=== PATIENT | female | born 1950 | race Caucasian/White ===

== ENCOUNTER 2017-01-27 14:27 | Inpatient (IN) | payer MEDICARE, OTHER ==
[~2017-01-27] VITALS: Ht 167.6 cm; Wt 119.5 kg
[~2017-01-27 14:27] MED LIST: ALBUTEROL0.63 MG/3; AMLODIPINE BESYL5 MG PO; AZITHROMYCIN250 MG PO; MEDROL4 MG/DOSE- PO; MOTION SICKNESS25 M2 PO; NASONEX17 GM; PREDNISONE10 MG PO; RANITIDINE HCL150 MG PO; SYMBICORT 16010.2 GM; TIROSINT100 MCG PO; XOPENEX0.63 MG/3
[2017-01-27 15:30] LABS: BASOPHILS # (AUTO) 0.1 (0.0-0.1); EOSINOPHILS # (AUTO) 0.2 (0.0-0.4); EOSINOPHILS % 2.4 % (0.0-6.0); HEMATOCRIT 44.3 % (34.2-44.1); HEMOGLOBIN 14.5 g/dL (12.0-16.0); LYMPHOCYTES # (AUTO) 2.4 (1.0-3.2); LYMPHOCYTES % 26.2 % (18.0-39.1); MEAN CORPUSCULAR HEMOGLOBIN 28.3 pg (28-32); MEAN CORPUSCULAR HGB CONC 32.7 g/dL (31-35); MEAN CORPUSCULAR VOLUME 86.5 fL (81-99); MONOCYTES # (AUTO) 0.5 (0.2-0.8); MONOCYTES % 5.6 % (4.4-11.3); NEUTROPHILS # (AUTO) 5.8 (2.1-6.9); NEUTROPHILS % 64.5 % (38.7-80.0); RED BLOOD COUNT 5.12 x10e6/uL (3.6-5.1)
[2017-01-27 15:39] LABS: INR 0.84; PROTHROMBIN TIME 11.9 seconds (11.9-14.5)
[2017-01-27 15:40] LABS: PARTIAL THROMBOPLASTIN TIME 24.9 seconds (23.8-35.5)
[2017-01-27 15:50] LABS: PLATELET COUNT 17 x10e3/uL (140-360)
[2017-01-27 16:02] LABS: PLATELET ESTIMATE MARKEDLY DECREASED
[2017-01-27 16:05] LABS: PLATELET MORPHOLOGY COMMENT FEW LARGE
[2017-01-27] MEDS ORDERED: SODIUM CHLORIDE FLUSH 10 ML SYR INJ PRN (16:15)
[2017-01-27 16:19] LABS: ALBUMIN 3.6 g/dL (3.5-5.0); ALBUMIN/GLOBULIN RATIO 0.9 (0.8-2.0); ANION GAP 13.4 mmol/L (8-16); CALCIUM 9.2 mg/dL (8.4-10.2); CREATININE, SERUM 1.21 mg/dL (0.57-1.11); POTASSIUM 4.4 mmol/L (3.5-5.1)
[2017-01-27 17:10] VITALS: BP 187/89
[2017-01-27] MEDS ORDERED: TIZANIDINE HCL4 MG PO (18:10)
[2017-01-27] MEDS ORDERED: AUGMENTIN 875-1 EACH PO (18:10)
[2017-01-27] MEDS ORDERED: POTASSIUM 25 M25 MEQ PO (18:10)
[2017-01-27] MEDS ORDERED: FUROSEMIDE40 MG PO (18:10)
[2017-01-27] MEDS ORDERED: LEVOTHYROXINE125 MCG PO (18:14)
[2017-01-27 18:42] VITALS: BP 187/89
[2017-01-27] MEDS ORDERED: ACETAMINOPHEN 325 MG TAB PO PRN (19:45)
[2017-01-27 20:09] VITALS: BP 200/128
[2017-01-27] MEDS: CLONIDINE HCL 0.1 MG TAB PO PRN (20:10)
--- NOTE | 2017-01-27 20:29 | Diagnostic Imaging Report ---
Two view chest x-ray INDICATION: COPD, low platelets COMPARISON: Chest x-ray 11/14/2015. FINDINGS: The cardiomediastinal silhouette is enlarged and stable in morphology with aortic ectasia. There is no evidence of hilar lymphadenopathy. The pulmonary vascular markings are normal. The lungs are diffusely hyperinflated. There are bands of linear atelectasis/scar in the mid and lower lung sneed. No consolidation or soft tissue mass. The costophrenic angles are sharp. Evaluation of the osseous structures demonstrates diffuse demineralization and mild degenerative changes of the spine. No focal osseous lesions. IMPRESSION: COPD. Chronic bilateral atelectasis/scar. Cardiomegaly without vascular congestion. Signed by: Dr. West Hollis MD on 01/27/2017 8:26 PM
[2017-01-28] VITALS: BP 136/81
[2017-01-28] MEDS: ALBUTEROL/IPRATROPIUM 3 ML NEB NEB SCH ×5 (01:00→23:36)
[2017-01-28 03:58] VITALS: BP 130/72
[2017-01-28 06:33] LABS: BASOPHILS # (AUTO) 0.1 (0.0-0.1); BASOPHILS % 1.1 % (0.0-1.0); EOSINOPHILS # (AUTO) 0.2 (0.0-0.4); EOSINOPHILS % 3.5 % (0.0-6.0); HEMATOCRIT 41.6 % (34.2-44.1); HEMOGLOBIN 13.3 g/dL (12.0-16.0); LYMPHOCYTES % 31.1 % (18.0-39.1); MEAN CORPUSCULAR VOLUME 87.6 fL (81-99); MONOCYTES # (AUTO) 0.4 (0.2-0.8); MONOCYTES % 5.3 % (4.4-11.3); NEUTROPHILS # (AUTO) 3.9 (2.1-6.9); NEUTROPHILS % 58.7 % (38.7-80.0); RED BLOOD COUNT 4.75 x10e6/uL (3.6-5.1)
[2017-01-28 06:47] LABS: PLATELET COUNT 15 x10e3/uL (140-360)
[2017-01-28] MEDS: LEVOTHYROXINE SODIUM 125 MCG TAB PO SCH (06:48)
[2017-01-28 06:51] LABS: ANION GAP 11.7 mmol/L (8-16); CREATININE, SERUM 1.04 mg/dL (0.57-1.11); POTASSIUM 4.7 mmol/L (3.5-5.1)
[2017-01-28 07:48] VITALS: BP 169/93
[2017-01-28] MEDS: BUDESONIDE/FORMOTEROL 160/4.5MCG INHALER INH SCH ×2 (11:24→19:10)
[2017-01-28 11:59] VITALS: BP 178/91
[2017-01-28] MEDS: CLONIDINE HCL 0.1 MG TAB PO PRN (12:10)
[2017-01-28] MEDS ORDERED: PREDNISONE 20 MG TAB PO ONE (13:30)
[2017-01-28] MEDS ORDERED: PANTOPRAZOLE SOD 40 MG TABEC PO ONE (13:30)
[2017-01-28] MEDS ORDERED: CLONIDINE HCL 0.1 MG TAB PO PRN (13:45)
[2017-01-28 15:09] LABS: FOLATE 8.2 ng/mL (7.0-15.4)
[2017-01-28 15:18] LABS: HIV 1&2 AB SCREEN NON-REACTIVE (NONREACTIVE)
[2017-01-28 16:01] VITALS: BP 155/94
--- NOTE | 2017-01-28 16:38 | History and Physical ---
CHIEF COMPLAINT: Severe thrombocytopenia, some bruise on the skin. HPI: This is a 66-year-old female with the past medical history of hypothyroidism, right renal adenocarcinoma, status post surgery at [facility], COPD, was in her usual state of health. Patient came to my office for a checkup and physical and blood test, found to have a severe thrombocytopenia, where platelet count was 14,000. Patient was sent to the ER. In ER, the platelet count was 17,000. We admitted for further care and hematology opinion and to rule out ITP. No headache, no dizziness, no hematemesis, no melena, no hematuria, no shortness of breath at rest, no cough, no diarrhea, no constipation. Mild leg edema. PAST MEDICAL HISTORY 1. COPD. 2. Hypothyroidism. 3. Adenocarcinoma of right kidney. PAST SURGICAL HISTORY: Right total nephrectomy from adenocarcinoma at [facility] last year. Had occasional smoking off and on. No alcohol use. Patient lives with her daughter. FAMILY HISTORY: Noncontributory. MEDICATIONS: List attached. REVIEW OF SYSTEMS: Denies having any weakness. HEENT: No lymphadenopathy, blurring of vision. Cardiopulmonary: Has some wheezing, shortness of breath, and cough. Alimentary system: No nausea, no vomiting. Musculoskeletal: No joint pain. Central nervous system: No focal weakness. PHYSICAL EXAMINATION GENERAL: A 66-year-old female, alert and oriented times 3. No gross distress. VITALS: Temperature 98.2. Pulse 82. Respiratory rate 18. Blood pressure 170/80. SKIN: Has some bruise. LUNGS: Air entry fair. Few rhonchi and wheezing bilaterally. HEART: S1, S2. Regular rate and rhythm. No S3, S4. No murmur. ABDOMEN: Soft, nontender. No guarding, no rigidity. EXTREMITIES: +1 pedal edema. Peripheral pulse +1. INSIDE SALES CONSULTANT: Grossly nonfocal. ASSESSMENT 1. Severe thrombocytopenia without active bleeding. 2. COPD. 3. Hypothyroidism. PLAN: Admit patient to medical floor. Hematology consult with Dr. Lala. Clonidine 0.1 mg q.8 p.r.n. for hypertension. Labs, CBC and BMP in the morning. Case discussed with patient and daughter condition and prognosis. Job#: [id number] CQ
[2017-01-28 20:36] VITALS: BP 167/92
[2017-01-29 00:24] VITALS: BP 142/74
[2017-01-29 04:47] VITALS: BP 129/76
[2017-01-29] MEDS: LEVOTHYROXINE SODIUM 125 MCG TAB PO SCH (05:40)
[2017-01-29 07:09] LABS: BASOPHILS # (AUTO) 0.1 (0.0-0.1); BASOPHILS % 0.5 % (0.0-1.0); EOSINOPHILS % 0.1 % (0.0-6.0); HEMATOCRIT 41.8 % (34.2-44.1); HEMOGLOBIN 13.6 g/dL (12.0-16.0); LYMPHOCYTES # (AUTO) 1.6 (1.0-3.2); LYMPHOCYTES % 16.4 % (18.0-39.1); MEAN CORPUSCULAR HEMOGLOBIN 28.5 pg (28-32); MEAN CORPUSCULAR HGB CONC 32.5 g/dL (31-35); MEAN CORPUSCULAR VOLUME 87.4 fL (81-99); MONOCYTES # (AUTO) 0.3 (0.2-0.8); MONOCYTES % 3.4 % (4.4-11.3); NEUTROPHILS # (AUTO) 7.9 (2.1-6.9); NEUTROPHILS % 79.2 % (38.7-80.0); RED BLOOD COUNT 4.78 x10e6/uL (3.6-5.1); RED CELL DISTRIBUTION WIDTH 13.9 % (11.7-14.4)
[2017-01-29 07:11] LABS: PLATELET COUNT 27 x10e3/uL (140-360)
[2017-01-29] MEDS: ALBUTEROL/IPRATROPIUM 3 ML NEB NEB SCH ×2 (07:12→12:50)
[2017-01-29] MEDS ORDERED: PANTOPRAZOLE SOD 40 MG TABEC PO SCH (07:30)
[2017-01-29 07:39] LABS: ANION GAP 13.6 mmol/L (8-16); BLOOD UREA NITROGEN 14 mg/dL (7-26); BUN/CREATININE RATIO 15 (6-25); CALCIUM 9.5 mg/dL (8.4-10.2); CARBON DIOXIDE 25 mmol/L (22-29); CHLORIDE 106 mmol/L (98-107); CREATININE, SERUM 0.92 mg/dL (0.57-1.11); EST GLOMERULAR FILTRATION RATE > 60 ML/MIN (60-); GLUCOSE 108 mg/dL (74-118); POTASSIUM 4.6 mmol/L (3.5-5.1); SODIUM 140 mmol/L (136-145)
[2017-01-29 08:21] VITALS: BP 167/89
[2017-01-29] MEDS ORDERED: AMLODIPINE BESYLATE 5 MG TAB PO SCH ×2 (09:00)
[2017-01-29] MEDS ORDERED: PREDNISONE 20 MG TAB PO SCH (09:00)
[2017-01-29] MEDS: BUDESONIDE/FORMOTEROL 160/4.5MCG INHALER INH SCH (10:30)
[2017-01-29 11:08] LABS: PLATELET ESTIMATE MARKEDLY DECREASED; PLATELET MORPHOLOGY COMMENT NORMAL
[2017-01-29 12:09] VITALS: BP 160/91
[2017-01-29] MEDS ORDERED: PREDNISONE20 MG PO (15:37)
[2017-01-29] MEDS ORDERED: B-121000 MCG PO (15:38)
[2017-01-29] MEDS ORDERED: PANTOPRAZOLE SO40 MG PO (15:38)
[2017-01-29] MEDS ORDERED: AMLODIPINE BESYL5 MG PO (15:41)
[2017-01-29 16:11] VITALS: BP 166/85
--- NOTE | 2017-03-11 08:04 | Discharge Summary ---
CHIEF COMPLAINT: Thrombocytopenia. FINAL DIAGNOSES: 1. Severe thrombocytopenia, no bleeding at this time. 2. B12 deficiency. 3. Hypertension. 4. Chronic obstructive pulmonary disease. 5. History of kidney carcinoma. DISPOSITION: Home. A 66-year-old female with history of hypothyroidism, right renal adenocarcinoma, status post surgery at [facility]. Also has COPD. Patient has been in her baseline state of health until recently she presented to my office for a checkup, and her physical blood studies were showing evidence of severe thrombocytopenia where the platelet count was only 14,000. Following discussing of these results with patient, she was sent to the ER. She was evaluated in the ER. She was showing a BP of 170/80, pulse 82, temperature 98.2. She was revealing evidence of few rhonchi and wheezing bilaterally. Lower extremities were showing 1+ pedal edema, 1+ peripheral pulse. CBC in the ER was showing a platelet count of 17,000. Further care was given, and she was admitted to the facility for evaluation of severe thrombocytopenia without active bleeding, COPD, hypothyroidism. With admission, will be requesting a hematology follow. With admission, she underwent the hematology follow regarding the low platelet count; and following evaluation, impression was made of thrombocytopenia, clinically suspect idiopathic thrombocytopenia. Will begin steroid management. Her care was underway. She continued to have no issues of bleeding, cough, or fever. Vital signs were remaining stable. She did have a little bit of bruising on her peripheral extremities. For additional BP support, she was started on Norvasc 5 mg daily. Followup platelets were 27,000. Continued to have evidence of petechia on the legs, but they were less than before. She was on respiratory treatment. She continued her IV fluids, continued on her prednisone maintenance of 120 mg daily. Recommending continuing the steroids per hematology, recommending rechecking blood studies in 1 week. She was cleared for discharge and she was able to be released home on January 29, 2017 in stable condition. EKG shows normal sinus rhythm with low-voltage QRS. She was released home. She will continue on her current diet. No equipment or supplies necessary. No drains or Mckinney needed. Activity level as directed by me as well as by hematology. She was written a prescription for vitamin B12 1000 mcg daily for 20 days, prednisone 100 mg p.o. daily for 10 days, Protonix 40 mg daily for 30 days, amlodipine 5 mg daily for 30 days. She will also continue on nebulizer treatments as needed daily for shortness of breath, Augmentin 875 per 125 one tablet daily, Symbicort 160 per 4.5 two dosages b.i.d., furosemide 20 mg daily, levothyroxine 125 mcg daily, potassium bicarbonate 8 mEq daily one, tizanidine 2 mg daily. As mentioned, she will follow back up with me in my office within the next 3 to 5 days for followup CBC, to review her platelet count. She will also be reporting back up with hematology as well for continued evaluation regarding issues related to possible ITP. She was instructed if she was to have any untoward bleeding, bruising, contact me in my office immediately. Dictated By: NATO Valiente GLENDY ISABEL MD Job#: [id number]
== END 2017-01-29 16:18 | disposition home or self-care (01) | DRG 813 ==
LOC: ER 14:27 → IMCU 16:49 → OBSVTOIN 01-29 06:14
PROVIDERS: ADMIT Internal Medicine; ATTEND Internal Medicine
PROC: 30233R1 Transfusion of Nonautologous Platelets into Peripheral Vein, Percutaneous Approach (ICD-10-PCS; principal; 2017-01-29)
DX: D69.3 Immune thrombocytopenic purpura (principal); J44.9 Chronic obstructive pulmonary disease, unspecified; Z68.41 Body mass index [BMI] 40.0-44.9, adult; E03.9 Hypothyroidism, unspecified; Z90.5 Acquired absence of kidney; Z85.528 Personal history of other malignant neoplasm of kidney; E66.8 Other obesity; E53.8 Deficiency of other specified B group vitamins
CPT/HCPCS: 36415; 71020; 80048; 80053; 82607; 82746; 85025; 85610; 85730; 86022; 86039; 86431; 86704; 86706; 86803; 87340; 87390; 93005; 94640; 99284; G0378; G0433; G0435

== ENCOUNTER → 2018-12-10 | Outpatient (CLI) | payer MEDICARE, OTHER ==
[~2018-12-10] MED LIST changes: -ALBUTEROL0.63 MG/3; +ALBUTEROL0.63 MG/3 IH; +AUGMENTIN 875-1 EACH PO; +B-121000 MCG PO; +CYCLOBENZAPRINE10 MG PO; +FUROSEMIDE40 MG PO; +HYDRALAZINE HCL25 MG PO; +HYDRALAZINE HCL50 MG PO; +ISOSORBIDE MONO20 MG PO; +LEVOTHYROXINE125 MCG PO; +PANTOPRAZOLE SO40 MG PO; +POTASSIUM 25 M25 MEQ PO; +PREDNISONE20 MG PO; -SYMBICORT 16010.2 GM; +SYMBICORT 16010.2 GM INH; +TIZANIDINE HCL4 MG PO; +TYLENOL WITH C1 EACH PO
[2018-12-10 12:37] LABS: ABG HCO3 28 mmol/L (23-28); ABG PCO2 43 mmHg (41-51); ABG PH 7.42 (7.31-7.41); ABG PO2 70 mmHg (80-105)
== END ==
LOC: LAB 11:59
PROVIDERS: ATTEND Internal Medicine Pulmonary Disease
DX: J44.9 Chronic obstructive pulmonary disease, unspecified (principal)
CPT/HCPCS: 36415; 82805

== ENCOUNTER 2018-12-12 10:58 | Inpatient (IN) | payer MEDICARE, OTHER ==
[2018-12-10 12:33] LABS: BASOPHILS % 0.3 % (0.0-1.0); HEMATOCRIT 47.3 % (34.2-44.1); LYMPHOCYTES % 7.1 % (18.0-39.1); MEAN CORPUSCULAR HEMOGLOBIN 28.4 pg (28-32); MEAN CORPUSCULAR HGB CONC 31.7 g/dL (31-35); MEAN CORPUSCULAR VOLUME 89.4 fL (81-99); MONOCYTES # (AUTO) 0.4 (0.2-0.8); MONOCYTES % 2.5 % (4.4-11.3); NEUTROPHILS # (AUTO) 12.8 (2.1-6.9); NEUTROPHILS % 89.5 % (38.7-80.0); PLATELET COUNT 116 x10e3/uL (140-360); RED BLOOD COUNT 5.29 x10e6/uL (3.6-5.1); RED CELL DISTRIBUTION WIDTH 15.4 % (11.7-14.4)
[2018-12-10 12:38] LABS: INR 0.83; PROTHROMBIN TIME 11.9 seconds (11.9-14.5)
[2018-12-10 12:39] LABS: PARTIAL THROMBOPLASTIN TIME 18.3 seconds (23.8-35.5)
[2018-12-10 12:46] LABS: ANION GAP 12.5 mmol/L (8-16); CALCIUM 9.7 mg/dL (8.4-10.2); CREATININE, SERUM 0.93 mg/dL (0.57-1.11); POTASSIUM 4.5 mmol/L (3.5-5.1)
--- NOTE | 2018-12-10 13:17 | Diagnostic Imaging Report ---
EXAMINATION: CHEST 2 VIEWS INDICATION: Pre-operative COMPARISON: None FINDINGS: LINES/TUBES:None LUNGS:The lungs are hyperinflated. Mild biapical pleural parenchymal thickening/scarring. Linear opacities at both right and left mid and lower lung zones, likely subsegmental atelectasis and/or scarring. PLEURA:No pleural effusion or pneumothorax. MEDIASTINUM:The heart is mildly enlarged. BONES/SOFT TISSUES:No acute osseous injury. ABDOMEN:No free air under the diaphragm. IMPRESSION: Hyperinflated lungs. Linear opacities at right and left mid and lower lung zones likely represent subsegmental atelectasis and/or scarring. Mild cardiomegaly. Signed by: Sampson Cole MD on 12/10/2018 1:14 PM
[~2018-12-12] VITALS: Ht 162.6 cm; Wt 123.4 kg
[~2018-12-12 10:58] MED LIST changes: -TYLENOL WITH C1 EACH PO
--- OUTSIDE RECORDS SUMMARY | 2018-12-12 11:58 | XMS REPORT ---
Author [facility] Address Unknown Phone Unavailable Care Team Providers Care Optical Goods Worker Name Role Phone TALON TSANG Unavailable Unavailable GRACY MARTINEZ Unavailable Unavailable Payers Payer Name Policy Type Policy Number Effective Date Expiration Date Problems This patient has no known problems. Allergies, Adverse Reactions, Alerts Allergy Name Allergy Type Status Severity Reaction(s) Onset Date Inactive Date Treating Clinician Comments oxycodone DA Active U 2017-09-18 00:00:00 aspirin DA Active U 2017-09-18 00:00:00 Medications This patient has no known medications. Results Test Description Test Time Test Comments Text Results Atomic Results Result Comments CHEST 2 VIEWS 2018-12-10 13:12:00 [facility] [address] [place] [address] Patient Name: DONNA SOMMERS MR #: [id number] : 1950 Age/Sex: 68/F Req #: [id number] Adm Physician: Ordered by: TALON TSANG MD Report #: [id number] Location: OR Room/Bed: Procedure: [id number] DX/CHEST 2 VIEWS Exam Date: 12/10/18 Exam Time: 1240 REPORT STATUS: Signed EXAMINATION: CHEST 2 VIEWS INDICATION: Pre-operative COMPARISON: None FINDINGS: LINES/TUBES:None LUNGS:The lungs are hyperinflated. Mild biapical pleural parenchymal thickening/scarring. Linear opacities at both right and left mid and lower lung zones, likely subsegmental atelectasis and/or scarring. PLEURA:No pleural effusion or pneumothorax. MEDIASTINUM:The heart is mildly enlarged. BONES/SOFT TISSUES:No acute osseous injury. ABDOMEN:No free air under the diaphragm. IMPRESSION: Hyperinflated lungs. Linear opacities at right and left mid and lower lung zones likely represent subsegmental atelectasis and/or scarring. Mild cardiomegaly. Signed by: Juan Flores MD on 12/10/2018 1:14 PM Dictated By: JUAN FLORES MD 13 Transcribed By: OSMIN on 12/10/181313 COPY TO: TALON TSANG MD BREAST,BIOPSY 2017-10-24 12:51:00 RUN DATE: 10/24/17 [facility] PAGE 1 RUN TIME: 1251 Specimen Inquiry RUN USER: INTERFACE PATIENT: DONNA SOMMERS LOC: PAZ U #: [id number] AGE/SX: 67/F ROOM: RE10/23/17REG DR: Gracy Martinez MD : [birth year] BED: DIS: STATUS: [facility] TLOC: SPEC #: [id number] RECD: 10/23/17 STATUS: LULI REGlen #: [id number] SHARRI: 10/23/17 DR: Laisha Osborne MD ENTERED: 10/23/17 SP TYPE: BX BREAST OTHR DR: ORDERED: GROSS MARKERS: INTRADEPARTMENTAL CONSULT PROCEDURES: GROSS (10/23/17) TISSUES: BREAST CORE BIOPSY - RIGHT @ 6:00 MASS CLINICAL HISTORY COLLECTION DATE: 10/23/17 LEFT BREAST 6 O'CLOCK MASS/ ARCHITECTURAL DISTORTION POST-OP DIAGNOSIS: BENIGN VS MALIGNANT DISTORTION; STROMAL FIBROSIS VS MALIGNANCY COMMENT INTRADEPARTMENT CONSULTATION: DMW FINAL DIAGNOSIS Left breast, 6 o'clock, core needle biopsy: BENIGN BREAST PARENCHYMA WITH ADENOSIS AND FOCAL MICROCALCIFICATION NEGATIVE FOR MALIGNANCY SHRUTHI D [id number] MACROSCOPIC The specimen is received in formalin, labeled with the patient's name and identified as "L breast US bx". It consists of multiple yellow-white needle core biopsy tissue measuring 1.7 X 1.5 X 0.2 cm in aggregate. The tissue is strained through a biopsy bag and entirely submitted in a single cassette for microscopic evaluation. GROSS PERFORMED AT [facility] [address] [facility], [place] [address] CONTINUED ON NEXT PAGE RUN DATE: 10/24/17 [facility] PAGE 2 RUN TIME: 1251 Specimen Inquiry RUN USER: INTERFACE SPEC #: [id number] PATIENT: DONNA SOMMERS #[id number] (Continued) MACROSCOPIC (Continued) (P)[phone] MICROSCOPIC MICROSCOPIC PERFORMED AT [facility] All of the stains, including any controls performed, stain appropriately. [facility] [address] [place] [address], [place] [address] (P)[phone] Signed SIGNATURE ON FILE Laurence Singh 10/24/17 1251 END OF REPORT CHEST [address] [facility] [address] [address] Patient Name: DONNA SOMMERS MR #: [id number] : 1950 Age/Sex: 66/F Req #: [id number] Adm Physician: GRACY MARTINEZ MD Ordered by: GRACY MARTINEZ MD Report #: [id number] Location: [facility] Room/Bed: [place] [address] Procedure: [id number] DX/CHEST 2 VIEWS Exam Date: Exam Time: REPORT STATUS: Signed Two view chest x-ray INDICATION: COPD, low platelets COMPARISON: Chest x-ray 11/14/2015. FINDINGS: The cardiomediastinal silhouette is enlarged and stable in morphology with aortic ectasia. There is no evidence of hilar lymphadenopathy. The pulmonary vascular markings are normal. The lungs are diffusely hyperinflated. There are bands of linear atelectasis/scar in the mid and lower lung sneed. No consolidation or soft tissue mass. The costophrenic angles are sharp. Evaluation of the osseous structures demonstrates diffuse demineralization and mild degenerative changes of the spine. No focal osseous lesions. IMPRESSION: COPD. Chronic bilateral atelectasis/scar. Cardiomegaly without vascular congestion. Signed by: Dr. Mariaelena Hollis MD on 01/27/2017 8:26 PM Dictated By: MARIAELENA HLOLIS MD 25 Transcribed By: OSMIN on 01/27/172025 COPY TO: GRACY MARTINEZ MD
[2018-12-12] MEDS ORDERED: CEFAZOLIN SOD 1 GM/NS 50ML 100 ML IV ONE (12:15)
[2018-12-12] MEDS ORDERED: BUPIVACAINE HCL 0.5% INJ 30 ML VIAL INJ ONE (12:42)
[2018-12-12] MEDS ORDERED: BACITRACIN 50,000 UNIT VIAL ONE (12:42)
[2018-12-12] MEDS ORDERED: SUGAMMADEX SODIUM 200 MG/2 ML VIAL IV ONE (13:33)
[2018-12-12] MEDS ORDERED: ONDANSETRON HCL INJ 2MG/ML 2ML 2 MG/ML VIAL ONE (13:56)
[2018-12-12] MEDS ORDERED: HYDROCORTISONE SOD SUCCINATE 100 MG VIAL ONE (13:56)
[2018-12-12] MEDS ORDERED: DESFLURANE 240 ML BTL INH ONE (13:56)
[2018-12-12] MEDS ORDERED: ROCURONIUM BROMIDE 10 MG/ML 5ML VIAL ONE (13:56)
[2018-12-12] MEDS ORDERED: LIDOCAINE HCL 2% LOCAL INJ 5 ML SDV VIAL INJ ONE (13:56)
[2018-12-12] MEDS ORDERED: ACETAMINOPHEN 1000 MG/100 ML IV ONE (13:56)
[2018-12-12] MEDS ORDERED: PROPOFOL IV EMULSION 10 MG/ML 20 ML VIAL ONE (13:56)
[2018-12-12] MEDS: SODIUM CHLORIDE 0.9% 1000ML 1,000 ML IV SCH ×2 (13:58→20:16)
[2018-12-12] MEDS ORDERED: DIPHENHYDRAMINE HCL 25 MG CAP PO PRN (14:00)
[2018-12-12] MEDS ORDERED: BUDESONIDE/FORMOTEROL 160/4.5MCG INHALER INH PRN (14:00)
[2018-12-12] MEDS ORDERED: NALOXONE HCL INJ 0.4 MG/ML AMP IV PRN (14:00)
[2018-12-12] MEDS ORDERED: CYCLOBENZAPRINE HCL 10 MG TAB PO PRN (14:00)
[2018-12-12] MEDS ORDERED: ISOSORBIDE MONONITRATE 20 MG TAB PO SCH (14:00)
[2018-12-12] MEDS ORDERED: CEFAZOLIN SOD 1 GM VIAL IV SCH (14:00)
[2018-12-12] MEDS ORDERED: MORPHINE SULFATE 1 MG/ML 30ML PCA IV PRN (14:00)
[2018-12-12] MEDS ORDERED: ONDANSETRON HCL INJ 2MG/ML 2ML 2 MG/ML VIAL IV PRN (14:00)
[2018-12-12] MEDS ORDERED: FENTANYL CITRATE/PF 100MCG/2 ML INJ ONE ×2 (14:22→14:41)
[2018-12-12] MEDS ORDERED: MIDAZOLAM HCL 2 MG/2 ML VIAL ONE (14:41)
--- NOTE | 2018-12-12 15:13 | NUR ---
Patient admitted to unit from PACU. Patient is AAOx3. Patient is post op hernia repair with mesh. Dressing to right side of abdomen clean and dry. BABAK drain in place with minimal amount of bloody drainage. Lung sneed auscultated and some wheezing noted. Patient is a smoker. Wears O2 at home as well. Bowel sounds present but hypoactive. No c/o pain at this time. NO edema noted to BLE. Right hand IV in place with IV fluids infusing. Family at bedside
[2018-12-12 15:44] VITALS: BP 138/77
[2018-12-12 16:03] VITALS: BP 138/77
[2018-12-12] MEDS: CEFAZOLIN SOD 2 GM/D5W 50ML 50 ML IV SCH (17:01)
[2018-12-12] MEDS: ACETAMINOPHEN 1000 MG/100 ML IV PRN (19:17)
[2018-12-12 19:54] VITALS: BP 136/69
[2018-12-12] MEDS: ALBUTEROL/IPRATROPIUM 3 ML NEB NEB SCH (20:15)
[2018-12-12] MEDS: HYDRALAZINE HCL 25 MG TAB PO SCH (20:16)
[2018-12-12] MEDS: PREDNISONE 10 MG TAB PO SCH (20:16)
--- NOTE | 2018-12-12 21:03 | Operative Report ---
DATE OF PROCEDURE: 12/12/2018 SURGEON: Justus Velasco MD PREOPERATIVE DIAGNOSIS: Incisional hernia. POSTOPERATIVE DIAGNOSIS: Incisional hernia. PROCEDURE: Repair of incisional hernia with mesh. TECHNICAL SALES SUPPORT MANAGER: None. ANESTHESIA: General endotracheal. INDICATIONS AND FINDINGS: The patient is a 68-year-old female who presented with complaints of pain with a bulge in the right upper abdomen at the site of previous surgery. The patient has incisional hernia with the fascial defect that was approximately 6 x 8 cm. There was herniated omentum, small bowel and colon within the hernia. DESCRIPTION OF PROCEDURE: After adequate general endotracheal anesthesia, the patient in supine position, the abdomen was prepped and draped in a sterile fashion with ChloraPrep solution. Incision was made in the right subcostal area, going through the previous wound, carried down through subcutaneous tissue. The hernia sac was identified. Hernia was dissected free from surrounding tissues. During dissection, the sac was opened. There was herniated omentum, small bowel and colon within the hernia sac. There was some adhesions to the hernia sac, which were lysed and they were herniated. The viscera was returned to the peritoneal cavity. The hernia sac was excised. The fascial defect was completely delineated with all adhesions lysed. The defect was about 6 x 8 cm. A separate mesh of appropriate size was soaked in antibiotic solution, fashioned appropriately, and sutured to the undersurface of the abdominal wall, intraperitoneal position with a running horizontal mattress suture of #0 Prolene. Sutures taken about 3 cm from the edge of the defect. Once the mesh was in place, thinned out edge of the fascia were closed over the mesh with a running suture of #0 prolene. Hemostasis was seen to be adequate and was infiltrated with 0.5% Marcaine. A 19-Finnish Tonny drain was placed into the wound through a separate stab wound incision. The subcutaneous tissue closed with running suture of 3-0 Vicryl. Skin was closed with virginia. Sterile dressing was applied. The patient tolerated the procedure well. ESTIMATED BLOOD LOSS: 25 mL. COMPLICATIONS: There were no complications. COUNTS: All counts were correct. DISPOSITION: The patient was taken to the recovery room in satisfactory condition. MD GISELLA Garrett/ZAFAR /[id number] cc: Gracy Martinez MD
[2018-12-12 21:25] VITALS: BP 136/69
[2018-12-13] VITALS (9 sets, daily range): BP systolic 102–159; BP diastolic 54–76
[2018-12-13] MEDS: ALBUTEROL/IPRATROPIUM 3 ML NEB NEB SCH ×4 (01:15→20:30)
[2018-12-13] MEDS: CEFAZOLIN SOD 2 GM/D5W 50ML 50 ML IV SCH ×2 (01:43→08:19)
--- NOTE | 2018-12-13 01:59 | Consultation ---
DATE OF CONSULTATION: 12/12/2018 CHIEF COMPLAINT: Abdominal hernia. HISTORY OF PRESENT ILLNESS: This is a 68-year-old female with past medical history of hypertension, renal insufficiency, carcinoma of kidney, COPD, ITP. She was in her usual state of health until the patient complaining this abdominal pain and ventral hernia for a long time. Dr. Velasco admitted this patient for surgery today. The patient underwent ventral hernia repair with the mesh. No headache. No dizziness. No nausea. No vomiting. No constipation. Postoperatively, the patient is doing better and alert. No leg pain. No shortness of breath. No cough. No fever. ALLERGIES: ALLERGY TO PAPER TAPE, ASPIRIN, OXYCODONE. PAST MEDICAL HISTORY: 1. ITP, platelet count stable. 2. COPD. 3. Hypertension. 4. Renal insufficiency. 5. Carcinoma of the right kidney, status post surgery. PAST SURGICAL HISTORY: 1. Hysterectomy. 2. Cholecystectomy. 3. Right nephrectomy. HABITS: Denies smoking. Denies alcohol use. Denies illicit drug use. SOCIAL HISTORY: The patient is a , lives with her daughter. FAMILY HISTORY: Noncontributory. MEDICATIONS: List attached. REVIEW OF SYSTEMS: GENERAL: Denies fatigue and weakness. HEENT: No diplopia. No blurry vision. CARDIOPULMONARY: No chest pain. No wheezing. No shortness of breath. ALIMENTARY SYSTEM: No nausea. No vomiting. GENITOURINARY SYSTEM: No dysuria. No hematuria. MUSCULOSKELETAL: No joint pains. CENTRAL NERVOUS SYSTEM: No focal weakness. PHYSICAL EXAMINATION: GENERAL: This is a 68-year-old female, who is alert and oriented x3, in no gross distress. VITAL SIGNS: Temperature 97.3, pulse 93, respiratory rate 17, blood pressure 138/77, and O2 saturation 95. LUNGS: Air entry fair. No added sound. HEART: S1 and S2. Regular rate and rhythm. No S3, S4, or murmur. ABDOMEN: Soft and nontender. No guarding. No rigidity. EXTREMITIES: No pedal edema. Peripheral pluses +1. CAPACITY PLANNER: Grossly nonfocal. LABORATORY AND DIAGNOSTIC DATA: White count 14.25, hemoglobin 15, hematocrit 47.3, platelet 116. BUN and creatinine normal. EKG, normal sinus rhythm. Low voltage at 78 per minute. ASSESSMENT: 1. Ventral hernia, status post hernia repair with mesh by Dr. Velasco. 2. Right nephrectomy secondary to carcinoma. 3. Mild renal insufficiency. BUN and creatinine are stable. 4. Chronic obstructive pulmonary disease. 5. Hypertension. 6. History of ITP. Platelet stable. PLAN: IV cefazolin 1 g q.8h. IV fluids normal saline 100 mL/h. DuoNeb. Blood pressure pill. Postop care. SCD. Incentive spirometry q.2 hours. CBC and CMP in morning. Case discussed with the patient and daughter and nursing staff. Condition and prognosis explained. MD EVERT Gomez/ZAFAR /[id number]
[2018-12-13] MEDS: ACETAMINOPHEN 1000 MG/100 ML IV PRN ×2 (03:30→10:30)
[2018-12-13 05:48] LABS: BASOPHILS # (AUTO) 0.1 (0.0-0.1); BASOPHILS % 0.4 % (0.0-1.0); EOSINOPHILS % 0.1 % (0.0-6.0); HEMATOCRIT 44.7 % (34.2-44.1); HEMOGLOBIN 13.6 g/dL (12.0-16.0); LYMPHOCYTES # (AUTO) 2.3 (1.0-3.2); LYMPHOCYTES % 16.1 % (18.0-39.1); MEAN CORPUSCULAR HEMOGLOBIN 28.2 pg (28-32); MEAN CORPUSCULAR HGB CONC 30.4 g/dL (31-35); MEAN CORPUSCULAR VOLUME 92.5 fL (81-99); MONOCYTES # (AUTO) 0.9 (0.2-0.8); MONOCYTES % 6.4 % (4.4-11.3); NEUTROPHILS # (AUTO) 10.8 (2.1-6.9); NEUTROPHILS % 76.6 % (38.7-80.0); PLATELET COUNT 112 x10e3/uL (140-360); RED BLOOD COUNT 4.83 x10e6/uL (3.6-5.1); RED CELL DISTRIBUTION WIDTH 15.9 % (11.7-14.4)
[2018-12-13] MEDS: LEVOTHYROXINE SODIUM 25 MCG TABLET PO SCH (06:02)
[2018-12-13] MEDS: LEVOTHYROXINE SODIUM 112 MCG TAB PO SCH (06:02)
[2018-12-13 06:23] LABS: ALBUMIN 2.9 g/dL (3.5-5.0); ALBUMIN/GLOBULIN RATIO 1.2 (0.8-2.0); ANION GAP 10.4 mmol/L (8-16); CALCIUM 9.2 mg/dL (8.4-10.2); CREATININE, SERUM 0.99 mg/dL (0.57-1.11); POTASSIUM 4.4 mmol/L (3.5-5.1)
[2018-12-13 06:42] LABS: PLATELET ESTIMATE MODERATELY DECREASED
[2018-12-13 06:43] LABS: PLATELET MORPHOLOGY COMMENT FEW LARGE; RBC MORPHOLOGY COMMENT NORMAL
--- NOTE | 2018-12-13 07:07 | NUR ---
Rcvd patient in report this am. Patient is asleep in bed at this time. NO s/s of distress noted
[2018-12-13] MEDS: ISOSORBIDE MONONITRATE 30 MG TAB CR PO SCH (08:19)
[2018-12-13] MEDS: SODIUM CHLORIDE 0.9% 1000ML 1,000 ML IV SCH ×2 (08:19→20:47)
[2018-12-13] MEDS: HYDRALAZINE HCL 25 MG TAB PO SCH ×2 (08:19→20:47)
[2018-12-13] MEDS: PREDNISONE 20 MG TAB PO SCH (08:19)
--- NOTE | 2018-12-13 08:57 | NUR ---
IV leaking at this time. Will remove and attempt to replace
[2018-12-13] MEDS ORDERED: NON-FORMULARY MEDICATION (Hydralazine Hcl 50 MG) PO SCH (09:00)
[2018-12-13] MEDS ORDERED: LEVOTHYROXINE SODIUM 125 MCG TAB PO SCH (09:00)
[2018-12-13] MEDS ORDERED: ISOSORBIDE MONONITRATE 20 MG TAB PO SCH (09:00)
--- NOTE | 2018-12-13 09:13 | NUR ---
Left AC IV started.
[2018-12-13] MEDS ORDERED: TRAMADOL/APAP 37.5MG-325MG TAB PO PRN (13:30)
[2018-12-13] MEDS ORDERED: ONDANSETRON HCL 4 MG ORAL DISINTEGRATING TAB PO PRN (14:15)
[2018-12-13] MEDS: FAMOTIDINE 20 MG TAB PO SCH (16:53)
--- NOTE | 2018-12-13 17:03 | NUR ---
Nutrition Screen Note RD Recommendation for Physician: -Continue diet as ordered Plan of Care: RD following, monitoring for tolerance and adequacy Nutrition reason for involvement: Nutrition Risk Trigger MST 2 Primary Diagnose(s): ventral hernia PMH: HTN, renal insufficiency, carcinoma of kidney, COPD, ITP, cholecystectomy, right nephrectomy Ht: 64 in Wt: 272 lb BMI: 46.68 kg/m2 IBW: [address] Assessment: (12/13) Chart reviewed. Labs and meds reviewed. Pt is a 68 year old female admitted for incisional hernia. Pt stated her appetite has been good and is eating all of her meals. Consumption of 50-100% of meals documented in chart since 12/12. Pt stated she usually weighs 240 lbs but has gained weight due to medications. Pt reports some nausea. No chewing/swallowing issues reported. Will continue to monitor. Current Diet: GI soft Malnutrition Evaluation (12/13) The patient does not meet criteria for a specified degree of malnutrition at this time. Will re-evaluate at follow-up as appropriate. Energy intake: Adequate PO intake reported Weight loss: No weight loss reported Fat loss: no loss identified Muscle loss: no loss identified Supporting Evidence: Fluid accumulation: no accumulation identified Functional Status: no changes Diet Education Needs Assessment: Diet education not indicated. Nutrition Care Level: low Signed: Estefanía Osorio, MS, RD, LD
[2018-12-13] MEDS: PREDNISONE 10 MG TAB PO SCH (20:47)
[2018-12-13] MEDS ORDERED: ACETAMINOPHEN 325 MG TAB PO PRN (23:45)
--- NOTE | 2018-12-13 23:53 | NUR ---
Spoke with Dr. Velasco and received orders.
[2018-12-14] MEDS: ALBUTEROL/IPRATROPIUM 3 ML NEB NEB SCH ×3 (01:00→13:30)
[2018-12-14 04:00] VITALS: BP 135/64
[2018-12-14 06:02] LABS: BASOPHILS # (AUTO) 0.1 (0.0-0.1); BASOPHILS % 0.4 % (0.0-1.0); EOSINOPHILS % 0.1 % (0.0-6.0); HEMATOCRIT 43.5 % (34.2-44.1); HEMOGLOBIN 13.2 g/dL (12.0-16.0); LYMPHOCYTES # (AUTO) 1.6 (1.0-3.2); LYMPHOCYTES % 12.2 % (18.0-39.1); MEAN CORPUSCULAR HEMOGLOBIN 28.1 pg (28-32); MEAN CORPUSCULAR HGB CONC 30.3 g/dL (31-35); MEAN CORPUSCULAR VOLUME 92.8 fL (81-99); MONOCYTES # (AUTO) 0.9 (0.2-0.8); MONOCYTES % 6.3 % (4.4-11.3); NEUTROPHILS # (AUTO) 10.9 (2.1-6.9); NEUTROPHILS % 80.5 % (38.7-80.0); PLATELET COUNT 105 x10e3/uL (140-360); RED BLOOD COUNT 4.69 x10e6/uL (3.6-5.1); RED CELL DISTRIBUTION WIDTH 15.8 % (11.7-14.4)
[2018-12-14 06:40] LABS: ANION GAP 10.3 mmol/L (8-16); CALCIUM 9.3 mg/dL (8.4-10.2); CREATININE, SERUM 1.04 mg/dL (0.57-1.11); POTASSIUM 4.3 mmol/L (3.5-5.1)
[2018-12-14 07:00] LABS: PLATELET ESTIMATE MODERATELY DECREASED
[2018-12-14 07:01] LABS: PLATELET MORPHOLOGY COMMENT FEW LARGE; RBC MORPHOLOGY COMMENT NORMAL
[2018-12-14] MEDS: LEVOTHYROXINE SODIUM 25 MCG TABLET PO SCH (07:01)
[2018-12-14] MEDS: LEVOTHYROXINE SODIUM 112 MCG TAB PO SCH (07:01)
[2018-12-14] MEDS: FAMOTIDINE 20 MG TAB PO SCH (07:30)
--- NOTE | 2018-12-14 07:45 | NUR ---
Received patient and a/ox3, pleasant female, sitting on the edge of the bed, minimal RLL abd pain, no resp distress, call light within reach and rounds completed, will monitor.
[2018-12-14 09:11] VITALS: BP 159/73
[2018-12-14] MEDS: HYDRALAZINE HCL 25 MG TAB PO SCH (09:25)
[2018-12-14] MEDS: PREDNISONE 20 MG TAB PO SCH (09:26)
[2018-12-14] MEDS: ISOSORBIDE MONONITRATE 30 MG TAB CR PO SCH (09:26)
--- NOTE | 2018-12-14 09:27 | NUR ---
Patient tolerated GI soft diet and no N/V noted, reported
[2018-12-14 09:45] VITALS: BP 159/73
[2018-12-14 13:26] VITALS: BP 134/65
--- NOTE | 2018-12-14 14:18 | NUR ---
Rounds by Dr. Velasco and cleared patient for discharge. Patient will go home with BABAK drain, will educate patient on managing BABAK drain and will f/u with Dr. Velasco at the office.
[2018-12-14] MEDS ORDERED: TYLENOL WITH C1 EACH PO (14:37)
--- NOTE | 2018-12-14 14:57 | NUR ---
Patient alert and responsive, removed dressing to abdomen, well tolerated, educated patient on care of BABAK drain, returned demonstration. Medicated for pain. Provided patient with discharge instructions, prescription, contacts for f/u appt provided. Incision to abd intact, virginia in place and well approximated, patient discharged.
[2018-12-14] MEDS ORDERED: HYDRALAZINE HCL 25 MG TAB PO SCH (17:00)
--- NOTE | 2018-12-15 07:16 | Discharge Summary ---
ADMISSION DIAGNOSIS: Incisional hernia. DISCHARGE DIAGNOSIS: Incisional hernia. PRINCIPAL PROCEDURE: Repair of incisional hernia with mesh HISTORY OF PRESENT ILLNESS: The patient is a 68-year-old female, who presented with complaints of pain and bulge in right upper abdomen at the site of previous surgery. HOSPITAL COURSE: The patient admitted to the hospital, underwent surgery on the same day as admission. She had repair of recurrent incisional hernia with mesh. Postoperatively, the patient remained stable. She was seen in consultation by Dr. Shashank Martinez. Started on diet. She tolerated without problem. Diet was advanced. She was out of bed ambulating. Wound remained clean. She was discharged home on the second postop day. At time of discharge, she was afebrile, tolerating diet. Wound was clean. Drain had serosanguineous fluid draining. DISCHARGE MEDICATIONS: Tylenol with codeine and continue on same home medications that she took prior to admission. FOLLOWUP: She will follow up with Dr. Velasco in approximately 3 to 4 days after discharge. She was sent home in satisfactory condition on a regular diet. MD GISELLA Garrett/ZAFAR /[id number]
== END 2018-12-14 15:40 | disposition home or self-care (01) | DRG 354 ==
LOC: OR 10:58 → PACU V 14:03 → MED/SURG 14:57
PROVIDERS: ADMIT Surgery; ATTEND Surgery
PROC: 0WUF0JZ Supplement Abdominal Wall with Synthetic Substitute, Open Approach (ICD-10-PCS; principal; 2018-12-12 13:02)
DX: K43.2 Incisional hernia without obstruction or gangrene (principal); D69.3 Immune thrombocytopenic purpura; Z68.42 Body mass index [BMI] 45.0-49.9, adult; J44.9 Chronic obstructive pulmonary disease, unspecified; Z85.528 Personal history of other malignant neoplasm of kidney; Z90.5 Acquired absence of kidney; I10 Essential (primary) hypertension; N28.9 Disorder of kidney and ureter, unspecified; Z90.710 Acquired absence of both cervix and uterus; Z90.49 Acquired absence of other specified parts of digestive tract; E66.01 Morbid (severe) obesity due to excess calories
CPT/HCPCS: 36415; 71046; 80048; 80053; 82805; 85025; 85610; 85730; 88302; 93005; 94640; C1781; J0690; J1720; J2001; J2250; J2270; J2405; J3010; J7030; J7512

== ENCOUNTER 2019-11-21 23:08 | Emergency (ER) | payer MEDICARE, OTHER ==
[~2019-11-21] VITALS: Ht 162.6 cm; Wt 123.4 kg
[~2019-11-21 23:08] MED LIST changes: +TYLENOL WITH C1 EACH PO
[2019-11-21] MEDS ORDERED: FAMOTIDINE 20 MG/2 ML VIAL IV STA (23:18)
--- NOTE | 2019-11-21 23:19 | Emergency Department Note ---
History of Present Illnes History of Present Illness History of Present Illness This is a 69 year old female with acute onset of epigastric pain with n/c 4 hours prior to arrival. Historian: Patient Onset (how long ago): hour(s) (4) Radiation: Reports abdomen Severity: moderate Duration (how long): hour(s) (4) Timing of current episode: constant Progression: unchanged Chronicity: new Associated symptoms: Reports fever/chills, Reports nausea/vomiting Past Medical/Family History Physician Review I have reviewed the patient's past medical and family history. Any updates have been documented here. Past Medical History Recent Fever: No Clinical Suspicion of Infectio: No New/Unexplained Change in Ment: No Past Medical History: Hypertension, COPD Other Medical History: breast CA, kidney cancer, sleep apNEA, Past Surgical History: Hysterectomy Other Surgery: NEPHRECTOMY Social History Smoking Cessation: Never Smoker Alcohol Use: None Any Illegal Drug Use: No Other Last Tetanus: UTD Review of Systems Review of Systems Constitutional: Reports chills EENTM: Reports no symptoms Cardiovascular: Reports no symptoms Respiratory: Reports no symptoms Gastrointestinal: Reports abdominal pain, Reports nausea Genitourinary: Reports no symptoms Musculoskeletal: Reports no symptoms Integumentary: Reports no symptoms Neurological: Reports no symptoms Psychological: Reports no symptoms Endocrine: Reports no symptoms Hematological/Lymphatic: Reports no symptoms Physical Exam Related Data Allergies: Coded Allergies: aspirin (Verified Allergy, Unknown, 12/10/18) oxycodone (Verified Allergy, Unknown, 12/10/18) Uncoded Allergies: PAPER TAPE (Allergy, Unknown, 01/27/17) Triage Vital Signs Vital Signs Date Time Temp Pulse Resp B/P (MAP) Pulse Ox O2 Delivery O2 Flow Rate FiO2 11/21/19 23:08 98.2 81 18 129/79 94 Room Air Vital signs reviewed: Yes Physical Exam CONSTITUTIONAL Constitutional: Present morbidly obese HENT HENT: Present normocephalic, Present atraumatic, Present oropharynx clear/moist, Present nose normal HENT L/R: Present left ext ear normal, Present right ext ear normal EYES Eyes: Reports PERRL, Reports conjunctivae normal NECK Neck: Present ROM normal PULMONARY Pulmonary: Present effort normal, Present breath sounds normal CARDIOVASCULAR Cardiovascular: Present regular rhythm, Present heart sounds normal, Present capillary refill normal, Present normal rate GASTROINTESTINAL Abdominal: Present soft, Present tender (epigastric) GENITOURINARY Genitourinary: Present exam deferred SKIN Skin: Present warm, Present dry MUSCULOSKELETAL Musculoskeletal: Present ROM normal NEUROLOGICAL Neurological: Present alert, Present oriented x 3, Present no gross motor or sensory deficits PSYCHOLOGICAL Psychological: Present mood/affect normal, Present judgement normal Results Laboratory Lab results reviewed: Yes Imaging Imaging results reviewed: Yes Impressions [place] [id number] Patient Name: DONNA SOMMERS MR #: [id number] : 1950 Age/Sex: 69/F Req #: [id number] Adm Physician: Ordered by: JED NAVAS DO Report #: [id number] Location: ER Room/Bed: Procedure: [id number] CT/CT ABDOMEN/PELVIS WO Exam Date: Exam Time: REPORT STATUS: Signed EXAM: CT Abdomen and Pelvis WITHOUT contrast INDICATION: ^epigastric pain COMPARISON: None. TECHNIQUE: Abdomen and pelvis were scanned utilizing a multidetector helical scanner from the lung base to the pubic symphysis without administration of IV contrast. Absence of intravenous contrast decreases sensitivity for detection of focal lesions and vascular pathology. Coronal and sagittal reformations were obtained. Routine protocol was performed. IV CONTRAST: None ORAL CONTRAST: Water COMPLICATIONS: None RADIATION DOSE: Total DLP: 743.1 mGy*cm Estimated effective dose: (DLP x 0.015 x size factor) mSv CTDIvol has been reviewed. It is below the limits set by the Radiation Protocol Committee (RPC). FINDINGS: LINES and TUBES: None. LOWER THORAX: Bibasilar linear atelectasis/scarring. HEPATOBILIARY: Unenhanced liver is unremarkable. No biliary ductal dilation. GALLBLADDER: Surgically absent. SPLEEN: No splenomegaly. PANCREAS: Atrophic. No focal masses or ductal dilatation. ADRENALS: No adrenal nodules KIDNEYS/URETERS: Absent right kidney. No left hydronephrosis. Limited for evaluation of renal parenchyma without intravenous contrast. No stones. GI TRACT: No abnormal distention, wall thickening, or evidence of bowel obstruction. There are diverticula within the colon without evidence of diverticulitis. Appendix is not visualized. PELVIC ORGANS/BLADDER: Unremarkable. LYMPH NODES: No lymphadenopathy. VESSELS: There is mild atherosclerotic disease in the aorta and major arterial branches. Borderline aneurysmal dilatation of infrarenal abdominal aorta measuring 3 cm. PERITONEUM / RETROPERITONEUM: No free air or fluid. BONES: Degenerative changes of spine. SOFT TISSUES: Partially seen bilateral breast subcentimeter calcifications. IMPRESSION: 1. Limited study without intravenous contrast. 2. Colonic diverticulosis without evidence of diverticulitis. 3. 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 4. Absent right kidney. Signed by: Dr. Jaime Swan MD on 11/22/2019 1:52 AM Dictated By: JAIME SWAN MD 1 Transcribed By: OSMIN on 11/22/19151 COPY TO: JED NAVAS Assessment & Plan Medical Decision Making MDM Diff Dx : Biliary pathology, diverticulitis, ACS, UTI, Pyelonephritis, vascular disease of abd Assessment & Plan Final Impression: (1) Abdominal pain (2) Abnormal renal function Depart Disposition: HOME, SELF-alf Meds Reported Medications Acetaminophen With Codeine (TYLENOL WITH CODEINE #3 TABLET) 1 Each Tablet, 300 MG PO PRN, TAB TAKE ONE TABLET EVERY 4 HOURS NEEDED 12/14/18 Hydralazine Hcl (HYDRALAZINE HCL) 25 Mg Tab, 25 MG PO HS, TAB 12/10/18 Hydralazine Hcl (HYDRALAZINE HCL) 50 Mg Tablet, 50 MG PO QAM 12/10/18 Isosorbide Mononitrate (ISOSORBIDE MONONITRATE) 20 Mg Tablet, 30 MG PO DAILY, #30 TAB 12/10/18 Cyclobenzaprine Hcl (CYCLOBENZAPRINE HCL) 10 Mg Tablet, 10 MG PO DAILY PRN for MUSCLE SPASMS, TAB 12/10/18 Prednisone (PREDNISONE) 10 Mg Tab, 10 MG PO HS, TAB 12/10/18 Prednisone (PREDNISONE) 20 Mg Tab, 20 MG PO DAILY for 10 Days, TAB 01/29/17 Levothyroxine Sodium (LEVOTHYROXINE SODIUM) 125 Mcg Tablet, 137 MCG PO DAILY 01/27/17 Albuterol Sulfate (ALBUTEROL SULFATE) 0.63 Mg/3 Ml Vial.neb, 0.63 MG IH Q6H PRN for SHORTNESS OF BREATH 11/09/15 Budesonide/Formoterol Fumarate (SYMBICORT 160-4.5 MCG INHALER) 10.2 Gm Hfa.aer.ad, 160 MG INH BID PRN for SHORTNESS OF BREATH 01/16/13 JED NAVAS DO Nov 21, 2019 23:19
[2019-11-21] MEDS ORDERED: SODIUM CHLORIDE 0.9% 1000ML 1,000 ML IV STA (23:20)
[2019-11-21] MEDS ORDERED: ASPIRIN 81 MG CHEW TAB PO ONE (23:30)
--- OUTSIDE RECORDS SUMMARY | 2019-11-21 23:45 | XMS REPORT | Continuity of Care Document ---
Author Author [facility] t Organization [facility] Address [address] [place] [address] Phone Unavailable Care Team Providers Care Flight Surgeon Name Role Phone GRACY MARTINEZ MD PCP TALON TSANG Attphys Unavailable MAAME, GRACY Attphys Unavailable MAAME, GRACY Admphys Unavailable Payers Payer Name Policy Type Policy Number Effective Date Expiration Date di [facility] [id number] 2017 00:00:00 [facility] [id number] 2014 00:00 :00 [facility] Problems Condition Name Condition Details Condition Category Status Onset Date Resolution Date Last Treatment Date Treating Clinician Comments Source Failure of outpatient treatment Failure of outpatient treatment Pro blem Active 2015-11-09 00:00:00 [facility] Pneumonia Pneumonia Problem Active 2015-11-09 00:00:00 [facility] Thrombocytopenia Thrombocytopenia Problem Active [facility] Allergies, Adverse Reactions, Alerts Allergy Name Allergy Type Status Severity Reaction(s) Onset Date Inacti ve Date Treating Clinician Comments Source PAPER TAPE DA Active U 2019-04-13 00:00:00 [facility] Oxycodone Allergy to Substance Active 2018-12-10 00:00:00 [facility] Aspirin Allergy to Substance Active 2018-12-10 00:00:00 [facility] oxycodone DA Active U 2017-09-18 00:00:00 [facility] aspirin DA Active U 2017-09-18 00:00:00 [facility] PAPER TAPE Allergy to Substance Active 2017-01-27 00:00:00 [facility] Medications Ordered Medication Name Filled Medication Name Start Date Stop Da te Current Medication? Ordering Clinician Indication Dosage Frequency Signature (SIG) Comments Components Source Acetaminophen With Codeine (Tylenol With Codeine #3 Ta blet) 1 Each Tablet Acetaminophen With Codeine (Tylenol With Codeine #3 Tablet) 1 Each Tablet Yes 300 As Needed [facility] Albuterol Sulfate 0.63 Mg/3 Ml Vial.neb Albuterol Sulfate 0. 63 Mg/3 Ml Vial.neb Yes .63 Every 6 Hours as needed for Latoya rtness Of Breath [facility] Budesonide/Formoterol Fumarate (Symbicor t 160-4.5 Mcg Inhaler) 10.2 Gm Hfa.aer.ad Budesonide/Formoterol Fumarate (Symbicor t 160-4.5 Mcg Inhaler) 10.2 Gm Hfa.aer.ad Yes 160 Twice A Day as ne eded for Shortness Of Breath [facility] Cyclobenzaprine Hcl 10 Mg Tablet Cyclobenzaprine Hcl 10 Mg Tablet Yes 10 Daily as needed for Muscle Spasms [facility] Hydralazine Hcl 25 Mg Tab Hydralazine Hcl 25 Mg Tab Yes 25 Bedtime [facility] Hydralazine Hcl 50 Mg Tablet Hydralazine Hcl 50 Mg Tablet Y es 50 Every Morning [facility] Isosorbide Mononitrate 20 Mg Tablet Isosorbide Mononitrate 20 Mg Tabl et Yes 30 Daily [facility] Levothyroxine Sodium 125 Mcg Tablet Levothyroxine Sodium 125 Mcg Tabl et Yes 137 Daily [facility] Prednisone 10 Mg Tab Prednisone 10 Mg Tab Yes 10 Bedtime [facility] Prednisone 20 Mg Tab Prednisone 20 Mg Tab Yes 20 Daily [facility] Amlodipine Besylate 5 Mg Tablet, 5 Mg Oral Amlodipine Besylate 5 Mg Tablet, 5 Mg Oral 2018-12-10 00:00:00 No 5 Daily [facility] Amoxicillin/Potassium Clav (Augmentin 87 5-125 Tablet) 1 Each Tablet, 875 Mg Oral Amoxicillin/Potassium Clav (Augmentin 87 5-125 Tablet) 1 Each Tablet, 875 Mg Oral 2018-12-10 00:00:00 No 875 Daily [facility] Cyanocobalamin (Vitamin B-12) (B-12) 1,000 Mcg Tablet. er, Oral Cyanocobalamin (Vitamin B-12) (B-12) 1,000 Mcg Tablet.er, Oral 2018-12-10 00:00:00 No Daily [facility] Furosemide 40 Mg Tablet, 20 Mg Oral Furosemide 40 Mg Tablet, 20 Mg Oral 2018-12-10 00:00:00 No 20 Daily [facility] Pantoprazole Sodium (Protonix) 40 Mg Tablet.dr, 40 Mg Oral Pantoprazole Sodium (Protonix) 40 Mg Tablet.dr, 40 Mg Oral 2018-12-10 00:00:00 No 40 Daily [facility] Potassium Bicarbonate/Cit Ac (Potassium 25 Meq Tablet Eff) 25 Meq Tablet.eff, 8 Meq Oral Potassium Bicarbonate/Cit Ac (Potassium 25 Meq Tablet Eff) 25 Meq Tablet.eff, 8 Meq Oral 2018-12-10 00:00:00 No 8 D aily [facility] Tizanidine Hcl 4 Mg Tablet, 2 Mg Oral Tizanidine Hcl 4 Mg Tablet , 2 Mg Oral 2018-12-10 00:00:00 No 2 Daily [facility] Levalbuterol Hcl (Xopenex) 0.63 Mg/3 Ml Vial.neb, Leva lbuterol Hcl (Xopenex) 0.63 Mg/3 Ml Vial.neb, 2017-01-27 00:00:00 No P rn Q 4HOURS [facility] Levothyroxine Sodium (Tirosint) 100 Mcg Capsule, 75 Mc g Oral Levothyroxine Sodium (Tirosint) 100 Mcg Capsule, 75 Mcg Oral 2017-01-27 00:00:00 No 75 Daily [facility] Mometasone Furoate (Nasonex) 17 Gm [place], Mometasone F uroate (Nasonex) 17 Gm [place], 2017-01-27 00:00:00 No Daily [facility] Amlodipine Besylate 5 Mg Tablet, 5 Mg Oral Amlodipine Besylate 5 Mg Tablet, 5 Mg Oral 2015-11-09 00:00:00 No 5 Daily [facility] Azithromycin (Z-Peter) 250 Mg Tablet, 250 Mg Oral Azithr omycin (Z-Peter) 250 Mg Tablet, 250 Mg Oral 2015-11-09 00:00:00 No 250 Jennifer y [facility] Meclizine Hcl (Motion Sickness Relief Ii) 25 Mg Tablet , 25 Mg Oral Meclizine Hcl (Motion Sickness Relief Ii) 25 Mg Tablet, 25 Mg Oral 2015-11-09 00: 00:00 No 25 Prn [facility] Methylprednisolone (Medrol Dose Pack) 4 Mg/Dose Pack T ab, Mg Oral Methylprednisolone (Medrol Dose Pack) 4 Mg/Dose Pack Tab, Mg Oral 2015-11-09 00:00:00 No Daily [facility] Prednisone 10 Mg Tab, 10 Mg Oral Prednisone 10 Mg Tab, 10 Mg Ora l 2015-11-09 00:00:00 No 10 Daily [facility] Ranitidine Hcl 150 Mg Tablet, 150 Mg Oral Ranitidine H cl 150 Mg Tablet, 150 Mg Oral 2015-11-09 00:00:00 No 150 Daily [facility] Procedures Procedure Date / Time Performed Performing Clinician [facility] Repair of incisional hernia 2018-12-12 00:00:00 TALON TSANG [facility] X-ray of chest, two views 2018-12-10 00:00:00 TALON TSANG I [facility] Encounters Start Date/Time End Date/Time Encounter Type Admission Type Attendi [facility] Facility Care Department Encounter ID Source 2019-04-13 17:47:00 Inpatient U [facility] [id number] [facility] 2019-02-21 20:07:00 Inpatient U [facility] [id number] [facility] 2018-12-12 14:03:00 2018-12-14 15:40:00 Discharged Inpatient 3 TALON TSANG [facility] [id number] [facility] 2018-12-10 11:59:00 2018-12-10 11:59:00 Registered Clinic [facility] [id number] [facility] Results Test Description Test Time Test Comments Results Result Comments Source BREAST 2019-10-24 13:28:00 RUN DATE: 10/24/19 [facility] PAGE 1 RUN TIME: 1329 Specimen Inquiry RUN USER: INTERFACE PATIENT: DONNA SOMMERS LOC: [place] #: [id number] AGE/SX: 69/F ROOM: RE10/22/19REG DR: Gracy Martinez MD : 49 BED: DIS: STATUS: PRE REF TLOC: SPEC #: [id number] RECD: 10/22/19-1449 STATUS: LULI BENTLEY #: [id number] SHARRI: 10/22/19- SUBM DR: Gracy Martinez MD ENTERED: 10/22/19-1450 SP TYPE: BREAST OTHR DR: TUMOR REGISTRY ORDERED: GROSS COPIES TO: Gracy Martinez MD [address] [place] [address] TUMOR REGISTRY MARKERS: INTRADEPARTMENTAL CONSULT, MALIGNANCY PROCEDURES: GROSS (10/24/19-1313) TISSUES: 1. LEFT BREAST, NOS - CBX W/CALCIFICATIONS 2. LEFT BREAST, NOS - CBX 10 O'CLOCK CLINICAL HISTORY COLLECTION DATE: 10/22/19 LEFT BREAST CALCIFICATIONS, ESTIMATED TIME IN FORMALIN: 31 HOURS COMMENT The areas of high grade ductal carcinoma in situ measure up to 0.9 cm in length in the core biopsies. Block (1A) will be sent for immunostains for estrogen and progesterone receptors and an addendum report will be issued. 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/ D [id number] MACROSCOPIC Specimen (1) is received in formalin labeled with the patient's name, "left breast, 11:40 time in formalin" and consists of multiple core biopsies of yellow and yellow-argueta fibrofatty tissue measuring 2.7 x 2.0 x 0.3 cm in aggregate. The tissue is entirely submitted (1A-1B). Red ink is applied. Specimen (2) is received in formalin labeled with the patient's name, "left breast 10 o'clock 5 cm fn" and consists of multiple core biopsies of yellow fatty tissue measuring 2.0 x 1.3 x 0.2 cm in aggregate. Nelson ink is applied and the tissue is submitted as (2). GROSS PERFORMED AT [facility] [address] [place] [id number] (p)[phone] MICROSCOPIC All of the stains, including any controls performed, stain appropriately. MICROSCOPIC PERFORMED AT [facility] [address] [place] [address] (p)[phone] PERFORMING SITE Diagnosis performed at: [facility], [address] [address] CONTINUED ON NEXT PAGE RUN DATE: 10/24/19 [facility] PAGE 3 RUN TIME: 1329 Specimen Inquiry RUN USER: INTERFACE SPEC #: [id number] PATIENT: DONNA SOMMERS #[id number] (Continued) Signed SIGNATURE ON FILE Bridget Montgomery M D 10/24/19 1328 END OF REPORT BREAST 2019-10-24 13:28:00 RUN DATE: 10/28/19 [facility] PAGE 1 RUN TIME: 1402 Specimen Inquiry RUN USER: INTERFACE PATIENT: DONNA SOMMERS LOC: [place] Fer #: [id number] AGE/SX: 69/F ROOM: RE10/22/19REG DR: Gracy Martinez MD : 49 BED: DIS: STATUS: PRE REF TLOC: SPEC #: [id number] RECD: 10/22/19 STATUS: LULI BENTLEY #: [id number] SHARRI: 10/22/19- SUBM DR: Gracy Martinez MD ENTERED: 10/22/19-145 SP TYPE: BREAST OTHR DR: TUMOR REGISTRY ORDERED: GROSS COPIES TO: Gracy Martinez MD [address] [place] [address] TUMOR REGISTRY MARKERS: INTRADEPARTMENTAL CONSULT, MALIGNANCY PROCEDURES: GROSS (10/24/19-1313) TISSUES: 1. LEFT BREAST, NOS - CBX W/CALCIFICATIONS 2. LEFT BREAST, NOS - CBX 10 O'CLOCK ADDENDUM FINDINGS Addendum #1 Entered: 10/28/19 An Immunohistochemistry report is received from [facility] and the interpretation is as follows: Interpretation Interpretation ESTROGEN RECEPTOR: NEGATIVE (<1% UNFAVORABLE) PROGESTERONE RECEPTOR: NEGATIVE (<1% UNFAVORABLE) Result Reference Ranges: Estrogen Receptor and Progesterone Receptor Positive: >1% Negative: <1% The presence and level of hormone receptors in invasive tumor cells are strongly correlated with response to hormonal therapy and clinical outcome. Appropriate controls were performed for each immunostain. CONTINUED ON NEXT PAGE RUN DATE: 10/28/19 [facility] PAGE 2 RUN TIME: 1402 Specimen Inquiry RUN USER: INTERFACE SPEC #: [id number] PATIENT: DONNA SOMMERS #[id number] (Continued) ADDENDUM FINDINGS (Continued) Processing of specimen: Fixation in 10% neutral buffered formalin; paraffin embedded. Per report, estimated fixation time is >6, <72h - optimal fixation time: 6 to 72 hours. Optiview DAB ER-SP 1 PA-clone 16 This test was developed and its performance characteristics determined by [employer]. It has not been cleared or approved by the U.S. Food and Drug Administration. The FDA has determined that such clearance is not necessary. This test is used for clinical purposes. It should not be regarded as investigational or for research. This laboratory is certified under the Clinical Laboratory Improvement Amendments of 1988 (CLIA-88) as qualified to perform high complexity clinical testing. Electronic Signature Alvarado Frazier MD CPT Code(s): 20868(x2) The Technical and Professional components were performed at [facility], [facility] , [address], [place] [address]. Addendum Signed SIGNATURE ON FILE Bridget Montgomery MD 10/28/19 1401 CLINICAL HISTORY COLLECTION DATE: 10/22/19 LEFT BREAST CALCIFICATIONS, ESTIMATED TIME IN FORMALIN: 31 HOURS COMMENT The areas of high grade ductal carcinoma in situ measure up to 0.9 cm in length in the core biopsies. Block (1A) will be sent for immunostains for estrogen and progesterone receptors and an addendum report will be issued. Intradepartmental consultation: RRB FINAL DIAGNOSIS Left breast, stereotactic core needle biopsy with calcifications: DUCTAL CARCINOMA IN SITU, NUCLEAR GRADE 3 WITH CENTRAL NECROSIS AND CALCIFICATIONS NO INVASION SEEN CONTINUED ON NEXT PAGE RUN DATE: 10/28/19 [facility] PAGE 3 RUN TIME: 1402 Specimen Inquiry RUN USER: INTERFACE SPEC #: [id number] PATIENT: DONNA SOMMERS #[id number] (Continued) FINAL DIAGNOSIS (Continued) DUCTAL EPITHELIAL HYPERPLASIA (SEE COMMENT) Left breast, stereotactic core biopsy without calcifications: DUCTAL CARCINOMA IN SITU, NUCLEAR GRADE 3 NO AREAS OF INVASION SEEN DUCTAL EPITHELIAL HYPERPLASIA (SEE COMMENT) [facility]/ D [id number] MACROSCOPIC Specimen (1) is received in formalin labeled with the patient's name, "left breast, 11:40 time in formalin" and consists of multiple core biopsies of yellow and yellow-argueta fibrofatty tissue measuring 2.7 x 2.0 x 0.3 cm in aggregate. The tissue is entirely submitted (1A-1B). Red ink is applied. Specimen (2) is received in formalin labeled with the patient's name, "left breast 10 o'clock 5 cm fn" and consists of multiple core biopsies of yellow fatty tissue measuring 2.0 x 1.3 x 0.2 cm in aggregate. Nelson ink is applied and the tissue is submitted as (2). GROSS PERFORMED AT [facility] [address] [place] [address] (P)[phone] MICROSCOPIC All of the stains, including any controls performed, stain appropriately. MICROSCOPIC PERFORMED AT [facility] [address] [place] [address] (P)[phone] CONTINUED ON NEXT PAGE RUN DATE: 10/28/19 [facility] PAGE 4 RUN TIME: 1402 Specimen Inquiry RUN USER: INTERFACE SPEC #: [id number] PATIENT: DONNA SOMMERSU #[id number] (Continued) PERFORMING SITE Diagnosis performed at: [facility] [address] [facility] [place] [address] Signed SIGNATURE ON FILE Bridget Montgomery MD 10/24/19 1328 END OF REPORT BREAST 2019-10-24 13:28:00 RUN DATE: 11/01/19 [facility] PAGE 1 RUN TIME: 1540 Specimen Inquiry RUN USER: INTERFACE PATIENT: DONNA SOMMERS LOC: [place] #: [id number] AGE/SX: 69/F ROOM: RE10/22/19REG DR: Gracy Martinez MD : 48 BED: DIS: STATUS: PRE REF TLOC: SPEC #: [id number] RECD: 10/22/19-9 STATUS: LULI REGlen #: [id number] SHARRI: 10/22/19- SUBM DR: Gracy Martinez MD ENTERED: 10/22/19-1450 SP TYPE: BREAST OTHR DR: TUMOR REGISTRY ORDERED: GROSS COPIES TO: Gracy Martinez MD [facility] [place] [address] TUMOR REGISTRY MARKERS: INTRADEPARTMENTAL CONSULT, MALIGNANCY PROCEDURES: GROSS (10/24/19-1313) TISSUES: 1. LEFT BREAST, NOS - CBX W/CALCIFICATIONS 2. LEFT BREAST, NOS - CBX 10 O'CLOCK ADDENDUM FINDINGS Addendum #2 Entered: 11/01/19-7465 ADDENDUM CORRECTION The second specimen is actually the left breast ultrasound guided biopsy 10 o'clock, 5 cm fn (not left breast stereotactic core biopsy without calcifications 10 o'clock, 5 cm fn. The diagnosis remains unchanged. Addendum Signed SIGNATURE ON FILE Bridget Montgomery MD 11/01/19 1540 Addendum #1 Entered: 10/28/19 An Immunohistochemistry report is received from [facility] and the interpretation is as follows: Interpretation Interpretation ESTROGEN RECEPTOR: NEGATIVE (<1% UNFAVORABLE) CONTINUED ON NEXT PAGE RUN DATE: 11/01/19 [facility] PAGE 2 RUN TIME: 1540 Specimen Inquiry RUN USER: INTERFACE SPEC #: [id number] PATIENT: DONNA SOMMERS #[id number] (Continued) ADDENDUM FINDINGS (Continued) PROGESTERONE RECEPTOR: NEGATIVE (<1% UNFAVORABLE) Result Reference Ranges: Estrogen Receptor and Progesterone Receptor Positive: >1% Negative: <1% The presence and level of hormone receptors in invasive tumor cells are strongly correlated with response to hormonal therapy and clinical outcome. Appropriate controls were performed for each immunostain. Processing of specimen: Fixation in 10% neutral buffered formalin; paraffin embedded. Per report, estimated fixation time is >6, <72h -optimal fixation time: 6 to 72 hours. Optiview DAB ER-SP 1 PA-clone 16 This test was developed and its performance characteristics determined by [facility]. It has not been cleared or approved by the U.S. Food and Drug Administration. The FDA has determined that such clearance is not necessary. This test is used for clinical purposes. It should not be regarded as investigational or for research. This laboratory is certified under the Clinical Laboratory Improvement Amendments of 1988 (CLIA-88) as qualified to perform high complexity clinical testing. Electronic Signature Alvarado Frazier MD CPT Code(s): 23613(x2) The Technical and Professional components were performed at [facility], [address] , [address], [place] [address]. Addendum Signed SIGNATURE ON FILE Bridget Montgomery MD 10/28/19 1401 CLINICAL HISTORY COLLECTION DATE: 10/22/19 LEFT BREAST CALCIFICATIONS, ESTIMATED TIME IN FORMALIN: 31 HOURS CONTINUED ON NEXT PAGE RUN DATE: 11/01/19 [facility] PAGE 3 RUN TIME: 1540 Specimen Inquiry RUN USER: INTERFACE ------ ------SPEC #: [id number] PATIENT: DONNA SOMMERS #[id number] (Continued) COMMENT The areas of high grade ductal carcinoma in situ measure up to 0.9 cm in length in the core biopsies. Block (1A) will be sent for immunostains for estrogen and progesterone receptors and an addendum report will be issued. Intradepartmental consultation: RRB FINAL DIAGNOSIS Left breast, stereotactic core needle biopsy with calcifications: DUCTAL CARCINOMA IN SITU, NUCLEAR GRADE 3 WITH CENTRAL NECROSIS AND CALCIFICATIONS NO INVASION SEEN DUCTAL EPITHELIAL HYPERPLASIA (SEE COMMENT) Left breast, stereotactic core biopsy without calcifications: DUCTAL CARCINOMA IN SITU, NUCLEAR GRADE 3 NO AREAS OF INVASION SEEN DUCTAL EPITHELIAL HYPERPLASIA (SEE COMMENT) [facility]/ D [id number] MACROSCOPIC Specimen (1) is received in formalin labeled with the patient's name, "left breast, 11:40 time in formalin" and consists of multiple core biopsies of yellow and yellow-argueta fibrofatty tissue measuring 2.7 x 2.0 x 0.3 cm in aggregate. The tissue is entirely submitted (1A-1B). Red ink is applied. Specimen (2) is received in formalin labeled with the patient's name, "left breast 10 o'clock 5 cm fn" and consists of multiple core biopsies of yellow fatty tissue measuring 2.0 x 1.3 x 0.2 cm in aggregate. Nelson ink is applied and the tissue is submitted as (2). GROSS PERFORMED AT [facility] [address] [place] [address] (p)[phone] CONTINUED ON NEXT PAGE RUN DATE: 11/01/19 [facility] PAGE 4 RUN TIME: 1540 Specimen Inquiry RUN USER: INTERFACE SPEC #: [id number] PATIENT: DONNA SOMMERS #[id number] (Cont inued) MICROSCOPIC All of the stains, including any controls performed, stain appropriately. MICROSCOPIC PERFORMED AT [facility] [address] [place] [address] (p)[phone] PERFORMING SITE Diagnosis performed at: [facility] [address] [place] [address] Signed SIGNATURE ON FILE Bridget Montgomery MD 10/24/19 1328 END OF REPORT - XR CHEST 1 V 2019-04-13 13:45:00 Name: DONNA DEUTSCH RA [facility] : 1950 Age/S:69 /F [address] [facility] Unit#:[id number] Loc: [place], [place] [address] Phys: Federico Nickerson MD Dis Date: PHONE #: [phone] Status: REG ER FAX #: [phone] Exam Date: 04/13/2019 Reason: sob' EXAMS: CPT CODE: [id number] XR CHEST 1 V 43162 EXAM: Chest x-ray, one view; INFORMATION: Shortness of breath; FINDINGS: There is significant enlargement of the heart. Increased basilar densities consistent with atelectatic changes in probable mild basilar edema. No obvious effusions. IMPRESSION: 1. Cardiomegaly. 2. Probable mild left heart failure. 3. Basilar atelectatic changes. Location code: [facility] at 1345 Reported and signed by: Bentley Caballero M.D. CC: Dr. Gracy Martinez; Federico Nickerson MD Technologist: AURA YANCEY, RT(R),CT Trnscrpt Data: 04/13/2019 ([id number]) [email or web address] Orig Print D/T: S: 04/13/2019 (3846) PAGE 1 Signed Report URINALYSIS COMPLETE 2019-04-13 13:38:00 Test Item UA COLOR (test code = COLU) YELLOW YELLOW UA APPEARANCE (test code = APPU) SLIGHT HAZY CLEAR A UA GLUCOSE DIPSTICK (test code = DGLUU) norm mg/dL NEGATIVE UA BILIRUBIN DIPSTICK (test code = BILU) NEGATIVE mg/dL NEGATIVE UA KETONE DIPSTICK (test code = KETU) neg mg/dL NEGATIVE UA SPECIFIC GRAVITY (test code = SGU) 1.010 1.001-1.035 UA BLOOD DIPSTICK (test code = LUDIN) neg Nikhil/uL NEGATIVE UA PH DIPSTICK (test code = JOSELINE) 5.0 5.0-8.0 UA PROTEIN DIPSTICK (test code = PROU) neg mg/dL Neg-15 UA UROBILINIOGEN DIPSTICK (test code = URO) norm mg/dL 0.0-0.2 UA NITRITE DIPSTICK (test code = OSIRIS) NEGATIVE NEGATIVE UA LEUKOCYTE ESTERASE DIPSTICK (test code = LEUU) neg uL NEGA TIVE UA WBC (test code = WBCU) 0-5 per HPF 0-5 UA RBC (test code = RBCU) 0-3 per HPF 0-5 UA EPITHELIAL CELLS (test code = EPIU) Rare (0-1/hpf) per HPF Few UA BACTERIA (test code = BACU) FEW per HPF NONE Urine Source? Clean CatchURINALYSIS [id number] 13:19:00* Test Item Value Reference Range Interpretation Comments UA COLOR (test code = COLU) YELLOW YELLOW UA APPEARANCE (test code = APPU) SLIGHT HAZY CLEAR A UA GLUCOSE DIPSTICK (test code = DGLUU) norm mg/dL NEGATIVE UA BILIRUBIN DIPSTICK (test code = BILU) NEGATIVE mg/dL NEGATIVE UA KETONE DIPSTICK (test code = KETU) neg mg/dL NEGATIVE UA SPECIFIC GRAVITY (test code = SGU) 1.010 1.001-1.035 UA BLOOD DIPSTICK (test code = LUDIN) neg Nikhil/uL NEGATIVE UA PH DIPSTICK (test code = JOSELINE) 5.0 5.0-8.0 UA PROTEIN DIPSTICK (test code = PROU) neg mg/dL Neg-15 UA UROBILINIOGEN DIPSTICK (test code = URO) norm mg/dL 0.0-0.2 UA NITRITE DIPSTICK (test code = OSIRIS) NEGATIVE NEGATIVE UA LEUKOCYTE ESTERASE DIPSTICK (test code = LEUU) neg uL NEGA TIVE UA WBC (test code = WBCU) per HPF 0-5 UA RBC (test code = RBCU) per HPF 0-5 UA EPITHELIAL CELLS (test code = EPIU) per HPF Few UA BACTERIA (test code = BACU) per HPF NONE Urine Source? Clean CatchLACTIC [id number] 13:19:00* Test Item Value Reference Range Interpretation Comments LACTIC ACID (test code = LACT) 1.9 MMOL/L 0.4-1.9 N COMPREHENSIVE METABOLIC [id number] 13:12:00* Test Item Value Reference Range Interpretation Comments SODIUM (test code = NA) 143 mmol/L 135-148 N POTASSIUM (test code = K) 4.5 mmol/L 3.5-5.1 N CHLORIDE (test code = CL) 104 mmol/L 101-109 N CARBON DIOXIDE (test code = CO2) 33.6 mmol/L 21-32 H ANION GAP (test code = GAP) 10 mmol/L 10-20 N GLUCOSE (test code = GLU) 120 mg/dL 74-106 H BLOOD UREA NITROGEN (test code = BUN) 11 mg/dL 3-21 N CREATININE (test code = CREAT) 1.39 mg/dL 0.55-1.3 H BUN/CREATININE RATIO (test code = BUN/CREA) 7.9 10-20 L TOTAL PROTEIN (test code = PROT) 6.3 g/dL 6.5-8.4 L ALBUMIN (test code = ALB) 2.9 g/dL 3.4-4.8 L GLOBULIN (test code = GLOB) 3.4 G/DL 1-10 N ALBUMIN/GLOBULIN RATIO (test code = A/G) 0.9 RATIO 0.75-1.50 N CALCIUM (test code = CA) 8.9 mg/dL 8.4-10.2 N BILIRUBIN TOTAL (test code = BILT) 0.50 mg/dL 0.0-1.0 N SGOT/AST (test code = AST) 17 U/L 6-32 N SGPT/ALT (test code = ALT) 33 U/L 12-78 N N ote: Change in REFERENCE RANGE due to new reagent method. ALKALINE PHOSPHATASE TOTAL (test code = ALKP) 87 U/L 38-126 N CPK-MB [id number] 13:12:00* Test Item Value Reference Range Interpretation Comments CREATINE KINASE (CK) (test code = CK) 40 U/L 26-192 N CKMB (test code = CKMBT) 1.7 ng/mL 0.0-5.0 N RELATIVE % INDEX (test code = REL%) 4.3 % [id number] 13:12:00* Test Item Value Reference Range Interpretation Comments TROPONIN-I (test code = TROPI) 0.05 ng/mL 0.00-0.056 N [id number] 13:05:00* Test Item Value Reference Range Interpretation Comments D-DIMER (test code = DDIMER) 218 ng/ml < 600 B-TYPE NATRIURETIC [id number] 13:01:00* Test Item Value Reference Range Interpretation Comments B-TYPE NATRIURETIC PEPTIDE (test code = BNP) 183 pg/mL 0-100 H COMPREHENSIVE METABOLIC [id number] 13:01:00* Test Item Value Reference Range Interpretation Comments SODIUM (test code = NA) 143 mmol/L 135-148 N POTASSIUM (test code = K) 4.5 mmol/L 3.5-5.1 N CHLORIDE (test code = CL) 104 mmol/L 101-109 N CARBON DIOXIDE (test code = CO2) 33.6 mmol/L 21-32 H ANION GAP (test code = GAP) 10 mmol/L 10-20 N GLUCOSE (test code = GLU) 120 mg/dL 74-106 H BLOOD UREA NITROGEN (test code = BUN) 11 mg/dL 3-21 N CREATININE (test code = CREAT) 1.39 mg/dL 0.55-1.3 H BUN/CREATININE RATIO (test code = BUN/CREA) 7.9 10-20 L TOTAL PROTEIN (test code = PROT) gram/dL 6.4-8.2 ALBUMIN (test code = ALB) g/dL 3.4-5.0 GLOBULIN (test code = GLOB) g/dL 2.7-4.2 ALBUMIN/GLOBULIN RATIO (test code = A/G) 0.75-1.50 CALCIUM (test code = CA) 8.9 mg/dL 8.4-10.2 N BILIRUBIN TOTAL (test code = BILT) mg/dL 0.2-1.2 SGOT/AST (test code = AST) IUnit/L 15-37 SGPT/ALT (test code = ALT) U/L 10-69 ALKALINE PHOSPHATASE TOTAL (test code = ALKP) IUnit/L 45-117 CPK-MB [id number] 13:01:00* Test Item Value Reference Range Interpretation Comments CREATINE KINASE (CK) (test code = CK) IUnit/L 26-208 CKMB (test code = CKMBT) ng/mL 0-6.0 RELATIVE % INDEX (test code = REL%) % [id number] 13:01:00* Test Item Value Reference Range Interpretation Comments TROPONIN-I (test code = TROPI) ng/mL 0-0.045 CBC W/AUTO [id number] 12:47:00* Test Item Value Reference Range Interpretation Comments WHITE BLOOD CELL (test code = WBC) 10.0 K/mm3 4.5-12.5 N RED BLOOD CELL (test code = RBC) 5.26 mill/mm3 3.7-5.2 H HEMOGLOBIN (test code = HGB) 14.6 gram/dL 11.5-15.5 N HEMATOCRIT (test code = HCT) 47.8 % 36.0-46.0 H MEAN CELL VOLUME (test code = MCV) 90.9 fL 80-98 N MEAN CELL HGB (test code = MCH) 27.8 picogram 27.0-33.0 N MEAN CELL HGB CONCETRATION (test code = MCHC) 30.5 gram/dL 33.0-36. 0 L RED CELL DISTRIBUTION WIDTH (test code = RDW) 14.8 % 11.6-16. 2 N RED CELL DISTRIBUTION WIDTH SD (test code = RDW-SD) 49.7 fL 37 .0-51.0 N PLATELET COUNT (test code = PLT) 156 K/mm3 150-450 N MEAN PLATELET VOLUME (test code = MPV) 11.0 fL 6.7-11.0 N NEUTROPHIL % (test code = NT%) 86.3 % 39.0-69.0 H LYMPHOCYTE % (test code = LY%) 8.1 % 25.0-55.0 L MONOCYTE % (test code = MO%) 3.9 % 0.0-10.0 N EOSINOPHIL % (test code = EO%) 0.8 % 0.0-5.0 N BASOPHIL % (test code = BA%) 0.7 % 0.0-1.0 N NEUTROPHIL # (test code = NT#) 8.60 K/mm3 1.8-7.7 H LYMPHOCYTE # (test code = LY#) 0.81 K/mm3 1.0-5.0 L MONOCYTE # (test code = MO#) 0.39 K/mm3 0-0.8 N EOSINOPHIL # (test code = EO#) 0.08 K/mm3 0.0-0.5 N BASOPHIL # (test code = BA#) 0.07 K/mm3 0.0-0.2 N Platelet [id number] 07:01:00* Test Item Value Reference Range Interpretation Comments Platelet Estimate (test code = 92278-3) MODERATELY DECREASED [facility] [id number] 07:01:00* Test Item Value Reference Range Interpretation Comments Platelet Morphology Comment (test code = 82181-2) FEW LARGE NO EDTA PLT CLUMPS SEENCH[facility]lingenRed Cell Morphology [id number] 07:01:00* Test Item Value Reference Range Interpretation Comments Red Cell Morphology Comment (test code = 6742-1) NORMAL [facility] Csitb3982-10-34 06:52:00* Test Item Value Reference Range Interpretation Comments Sodium Level (test code = 2951-2) 140 136-145 [facility] [id number] 06:52:00* Test Item Value Reference Range Interpretation Comments Potassium Level (test code = 2823-3) 4.3 3.5-5.1 [facility]anoChloride [id number] 06:52:00* Test Item Value Reference Range Interpretation Comments Chloride Level (test code = 2075-0) 106 98-107 [facility]anoCarbon Dioxide [id number] 06:52:00* Test Item Value Reference Range Interpretation Comments Carbon Dioxide Level (test code = 2028-9) 28 22-29 [facility]anoAnion [id number] 06:52:00* Test Item Value Reference Range Interpretation Comments Anion Gap (test code = 41438-6) 10.3 8-16 [facility]anoBlood Urea Ichithfq2475-99-04 06:52:00* Test Item Value Reference Range Interpretation Comments Blood Urea Nitrogen (test code = 3094-0) 18 7-26 [facility]anoCreatinine2019-09-27 06:52:00* Test Item Value Reference Range Interpretation Comments Creatinine (test code = 2160-0) 1.04 0.57-1.11 [facility]anoBUN/Creatinine Kuwzc0245-71-55 06:52:00* Test Item Value Reference Range Interpretation Comments BUN/Creatinine Ratio (test code = 3097-3) 17 6-25 [facility] PlanoEstimat Glomerular Filtration Rate 2018-12-14 06:52:00* Test Item Value Reference Range Interpretation Comments Estimat Glomerular Filtration Rate (test code = 825325519) 53 >60 L Ranges were taken from the National Kidney Disease Education Program and the [facility] Foundation literature.Reference ranges:60 or greater: Epqrzn65-16 ( for 3 consecutive months): Chronic kidney disease 15 or less: Kidney failureTexas Health [facility]byterian Hospital PlanoGlucose Tiohk4758-06-49 06:52:00* Test Item Value Reference Range Interpretation Comments Glucose Level (test code = YVV1219) 97 74-118 [facility]anoCalcium Kijwk5188-71-58 06:52:00* Test Item Value Reference Range Interpretation Comments Calcium Level (test code = 12485-1) 9.3 8.4-10.2 [facility]anoWhite Blood Nrwos4958-29-75 06:07:00* Test Item Value Reference Range Interpretation Comments White Blood Count (test code = 6690-2) 13.49 4.8-10.8 H [facility] PlanoRed Blood Axdzh5786-49-02 06:07:00* Test Item Value Reference Range Interpretation Comments Red Blood Count (test code = 789-8) 4.69 3.6-5.1 [facility]anoHemoglobin2019-09-27 06:07:00* Test Item Value Reference Range Interpretation Comments Hemoglobin (test code = 29002-1) 13.2 12.0-16.0 [facility]anoHematocrit2019-09-27 06:07:00* Test Item Value Reference Range Interpretation Comments Hematocrit (test code = 4544-3) 43.5 34.2-44.1 [facility] PlanoMean Corpuscular Yijcsf1807-57-84 06:07:00* Test Item Value Reference Range Interpretation Comments Mean Corpuscular Volume (test code = 787-2) 92.8 81-99 [facility]anoMean Corpuscular Eiedsoosbn8241-56-76 06:07:00* Test Item Value Reference Range Interpretation Comments Mean Corpuscular Hemoglobin (test code = 785-6) 28.1 28-32 [facility] Hem[facility] Concent 2018-12-14 06:07:00* Test Item Value Reference Range Interpretation Comments Mean Corpuscular Hemoglobin Concent (test code = 786-4) 30.3 31-35 L [facility]anoRed Cell Distribution Khfbm1359-59-22 06:07:00* Test Item Value Reference Range Interpretation Comments Red Cell Distribution Width (test code = 86857-1) 15.8 11.7 -14.4 H [facility] PlanoPlatelet Zxjgp8055-40-19 06:07:00* Test Item Value Reference Range Interpretation Comments Platelet Count (test code = 777-3) 105 140-360 L [facility]anoNeutrophils (%) (Auto)2018-12-14 06:07:00 * Test Item Value Reference Range Interpretation Comments Neutrophils (%) (Auto) (test code = 55123-0) 80.5 38.7-80.0 H [facility]anoLymphocytes (%) (Auto)2018-12-14 06:07:00 * Test Item Value Reference Range Interpretation Comments Lymphocytes (%) (Auto) (test code = 736-9) 12.2 18.0-39.1 L [facility]anoMonocytes (%) (Auto)2018-12-14 06:07:00* Test Item Value Reference Range Interpretation Comments Monocytes (%) (Auto) (test code = 5905-5) 6.3 4.4-11.3 [facility]anoEosinophils (%) (Auto)2018-12-14 06:07:00 * Test Item Value Reference Range Interpretation Comments Eosinophils (%) (Auto) (test code = 713-8) 0.1 0.0-6.0 [facility]anoBasophils (%) (Auto)2018-12-14 06:07:00* Test Item Value Reference Range Interpretation Comments Basophils (%) (Auto) (test code = 706-2) 0.4 0.0-1.0 [facility]anoIM GRANULOCYTES %2018-12-14 06:07:00* Test Item Value Reference Range Interpretation Comments IM GRANULOCYTES % (test code = IM GRANULOCYTES %) 0.5 0.0- 1.0 [facility]anoNeutrophils # (Auto)2018-12-14 06:07:00* Test Item Value Reference Range Interpretation Comments Neutrophils # (Auto) (test code = 751-8) 10.9 2.1-6.9 H [facility]anoLymphocytes # (Auto)2018-12-14 06:07:00* Test Item Value Reference Range Interpretation Comments Lymphocytes # (Auto) (test code = 37203-7) 1.6 1.0-3.2 [facility]anoMonocytes # (Auto)2018-12-14 06:07:00* Test Item Value Reference Range Interpretation Comments Monocytes # (Auto) (test code = 742-7) 0.9 0.2-0.8 H [facility]anoEosinophils # (Auto)2018-12-14 06:07:00* Test Item Value Reference Range Interpretation Comments Eosinophils # (Auto) (test code = 711-2) 0.0 0.0-0.4 [facility]anoBasophils # (Auto)2018-12-14 06:07:00* Test Item Value Reference Range Interpretation Comments Basophils # (Auto) (test code = 704-7) 0.1 0.0-0.1 [facility] PlanoAbsolute Immature Granulocyte (auto 2018-12-14 06:07:00* Test Item Value Reference Range Interpretation Comments Absolute Immature Granulocyte (auto (renee t code = Absolute Immature Granulocyte (auto) 0.07 0-0.1 [facility] PlanoTotal Drkbhsenj5090-76-02 06:26:00* Test Item Value Reference Range Interpretation Comments Total Bilirubin (test code = 1975-2) 0.6 0.2-1.2 [facility] PlanoAspartate Amino Transf (AST/SGOT) 2018-12-13 06:26:00* Test Item Value Reference Range Interpretation Comments Aspartate Amino Transf (AST/SGOT) (test code = Aspartate Amino Transf (AST/SGOT)) 8 5-34 [facility] PlanoAlanine Aminotransferase (ALT/SGPT) 2018-12-13 06:26:00* Test Item Value Reference Range Interpretation Comments Alanine Aminotransferase (ALT/SGPT) (test code = 1742-6) 16 0-55 [facility] PlanoTotal Ishxuwr3958-05-30 06:26:00* Test Item Value Reference Range Interpretation Comments Total Protein (test code = 2885-2) 5.4 6.5-8.1 L [facility] PlanoAlbumin2019-09-26 06:26:00* Test Item Value Reference Range Interpretation Comments Albumin (test code = 1751-7) 2.9 3.5-5.0 L [facility]anoGlobulin2019-09-26 06:26:00* Test Item Value Reference Range Interpretation Comments Globulin (test code = 91047-6) 2.5 2.3-3.5 [facility]anoAlbumin/Globulin Bngwh7678-88-41 06:26:00 * Test Item Value Reference Range Interpretation Comments Albumin/Globulin Ratio (test code = 1759-0) 1.2 0.8-2.0 [facility] PlanoAlkaline Ehiuynkhqdb3606-46-99 06:26:00* Test Item Value Reference Range Interpretation Comments Alkaline Phosphatase (test code = 6768-6) 58 40-150 [facility] PlanoCHEST 2 [id number] 13:12:00 [facility] [address] [place] [address] Patient Name: DONNA SOMMERS MR #: [id number] : 1950 Age/Sex: 68/F Req #: [id number] Adm Physician: Ordered by: TALON TSANG MD Report #: [id number] Location: OR Room/Bed: Procedure: [id number] DX/ CHEST 2 VIEWS Exam Date: 12/10/18 Exam Time: 1240 REPORT STATUS: Signed EXAMINATION: CHEST 2 VIEWS INDICATION: Pre-operative COMPARISON: None FINDINGS: LINES/TUBES:None LUNGS:The lungs are hyperinflated. Mild biapical pleural parenchymal thickening/scarring. Linear opacities at both rig ht and left mid and lower lung zones, likely subsegmental atelectasis and/or s carring. PLEURA:No pleural effusion or pneumothorax. MEDIASTINUM:The h eart is mildly enlarged. BONES/SOFT TISSUES:No acute osseous injury. A BDOMEN:No free air under the diaphragm. IMPRESSION: Hyperinflated andrea gs. Linear opacities at right and left mid and lower lung zones likely represe nt subsegmental atelectasis and/or scarring. Mild cardiomegaly. Signed by: Juan Flores MD on 12/10/2018 1:14 PM Dictated By: JUAN FLORES MD Elec tronically Signed By: JUAN FLORES MD on 12/10/181313 Transcribed By: OSMIN on 12/10/181313 COPY TO: TALON TSANG MD Activated Partial Thromboplast [id number] 12:40:00* Test Item Value Reference Range Interpretation Comments Activated Partial Thromboplast Time (test code = 52809-8) 18.3 23.8-35.5 L [facility]anoProthrombin Eshg1863-42-06 12:39:00* Test Item Value Reference Range Interpretation Comments Prothrombin Time (test code = 5902-2) 11.9 11.9-14.5 [facility] PlanoProthromb Time International Ratio 2018-12-10 12:39:00* Test Item Value Reference Range Interpretation Comments Prothromb Time International Ratio (test code = 6301-6) 0.83 Oral Anticoagulant Therapy INR Values:1. Low Intensity Therapy 1.5 - 2.02 . Moderate Intensity Therapy 2.0 - 3.03. High Intensity Therapy(1) 2.5 - 3. 54. High Intensity Therapy(2) 3.0 - 4.05. Panic Value INR > 5.0 [facility] PlanoArterial Blood [id number] 12:38:00* Test Item Value Reference Range Interpretation Comments Arterial Blood pH (test code = 2744-1) 7.42 7.31-7.41 H [facility] PlanoArterial Blood Partial Pressure CO2 2018-12-10 12:38:00* Test Item Value Reference Range Interpretation Comments Arterial Blood Partial Pressure CO2 (test code = 2018-10) 43 41-51 [facility] PlanoArterial Blood Partial Pressure O2 2018-12-10 12:38:00* Test Item Value Reference Range Interpretation Comments Arterial Blood Partial Pressure O2 (test code = 2018-10) 70 80-105 L [facility] PlanoArterial Blood [id number] 12:38:00* Test Item Value Reference Range Interpretation Comments Arterial Blood HCO3 (test code = 1960-4) 28 23-28 [facility] PlanoArterial Blood Base Zroaha1091-62-19 12:38:00* Test Item Value Reference Range Interpretation Comments Arterial Blood Base Excess (test code = 1925-7) 3.0 -2-3 [facility]anoArterial Blood Oxygen Saturation 2018-12-10 12:38:00* Test Item Value Reference Range Interpretation Comments Arterial Blood Oxygen Saturation (test code = 2708-6) 94.0 95-98 L [facility] PlanoFiO22019-09-23 12:38:00* Test Item Value Reference Range Interpretation Comments FiO2 (test code = FiO2) 21 ROOM AIROUT PATIENTCHI [facility] HarlingenBREAST,BIOPSY 2017-10-24 12:51:00 RUN DATE: 10/24/17 [place] - Lab PAGE 1 RUN TIME: 1251 Specimen Inqui ry RUN USER: INTERFACE PATIENT: DONNA SOMMERS ACCT #: [id number] LOC: PAZ U #: [id number] AGE/SX: 67/F ROOM: RE10/23/17REG DR: Gracy Martinez MD : [birth year] BED: DIS: STATUS: [facility] TLOC: SPEC #: [id number] RECD: 10/23/17 STATUS: [facility] [place] #: [id number] SHARRI: 10/23/17- [facility] DR: Laisha Osborne MD ENTERED: 10/23/17 SP TYPE: BX BREAST OTHR DR: ORDERED: GROSS MARKERS: INTRADEPARTMENTAL CONSULT PROCEDUR ES: GROSS (10/23/17) TISSUES: BREAST CORE BIOPSY - RIGHT @ 6:00 M ASS CLINICAL HISTORY COLLECTION DATE: 10/23/17 LEFT BREAST 6 O'CL OCK MASS/ ARCHITECTURAL DISTORTION POST-OP DIAGNOSIS: BENIGN VS MALIGNANT DIST ORTION; STROMAL FIBROSIS VS MALIGNANCY COMMENT INTRADEPARTMENT C ONSULTATION: DMW FINAL DIAGNOSIS Left breast, 6 o'clock, core needle biopsy: BENIGN BREAST PARENCHYMA WITH ADENOSIS AND FOCAL MICROCALCIFICATI ON NEGATIVE FOR MALIGNANCY SHRUTHI D 46937 MACROSCOPIC The specimen is received in formalin, labeled with the patient's name and iden tified as "L breast US bx". It consists of multiple yellow-white needle core biopsy tissue measuring 1.7 X 1.5 X 0.2 cm in aggregate. The tissue is strain ed through a biopsy bag and entirely submitted in a single cassette for micros copic evaluation. GROSS PERFORMED AT [facility] [address] [facility], [place] [address] CONTINUED ON NEXT PAGE RUN DATE: 10/24/17 [place] [facility] PAGE 2 RUN TIME: 1251 Specimen Inquiry RUN USER: INTERFACE SPEC #: [id number] PATIENT: DONNA SOMMERS #[id number] (Continued)---- -------- MACROSCOPIC (Continued) (P)[phone] MICROSCOPIC MICROSCOPIC PERFORMED AT [facility] All of the stains, including any controls performed, stain appropriately. [facility] [address] [place] [address] (P)[phone] -- Signed SIGNATURE ON Laurence Thakkar 10/24/17 1251 END OF REPORT CHEST 2 VIEWS [place] [address] Patient Name: DONNA SOMMERS MR #: [id number] : 1950 Age/Sex: 66/F Req #: [id number] Adm Physician: GRACY MARTINEZ MD Ordered by: GRACY MARTINEZ MD Report #: [id number] Location: [facility] Room/Bed: [place] [address] Procedure: [id number] DX/CHEST 2 VIEWS Exam Date: Exam Time: REPORT STATUS: Signed Two view chest x-ray INDICATION: COPD, low platel ets COMPARISON: Chest x-ray 11/14/2015. FINDINGS: The cardiomedia stinal silhouette is enlarged and stable in morphology with aortic ectasia. T here is no evidence of hilar lymphadenopathy. The pulmonary vascular yaritza ngs are normal. The lungs are diffusely hyperinflated. There are bands of line ar atelectasis/scar in the mid and lower lung sneed. No consolidation or soft tissue mass. The costophrenic angles are sharp. Evaluation of the osseo us structures demonstrates diffuse demineralization and mild degenerative gonzáles ges of the spine. No focal osseous lesions. IMPRESSION: COPD. Chronic bilateral atelectasis/scar. Cardiomegaly without vascular congestion. Sig tova by: Dr. Mariaelena Hills MD on 01/27/2017 8:26 PM Dictated By: BRIELLE HILLS MD Transcribed By: OSMIN on 01/27/172025 COPY TO: GRACY MARTINEZ MD
[2019-11-22 00:02] LABS: BASOPHILS # (AUTO) 0.1 (0.0-0.1); BASOPHILS % 0.8 % (0.0-1.0); EOSINOPHILS # (AUTO) 0.1 (0.0-0.4); EOSINOPHILS % 1.2 % (0.0-6.0); HEMATOCRIT 43.9 % (34.2-44.1); LYMPHOCYTES # (AUTO) 1.2 (1.0-3.2); LYMPHOCYTES % 10.6 % (18.0-39.1); MEAN CORPUSCULAR HEMOGLOBIN 29.2 pg (28-32); MEAN CORPUSCULAR HGB CONC 31.9 g/dL (31-35); MEAN CORPUSCULAR VOLUME 91.5 fL (81-99); MONOCYTES # (AUTO) 0.5 (0.2-0.8); MONOCYTES % 4.3 % (4.4-11.3); NEUTROPHILS # (AUTO) 9.6 (2.1-6.9); NEUTROPHILS % 82.7 % (38.7-80.0); PLATELET COUNT 222 x10e3/uL (140-360)
[2019-11-22] MEDS ORDERED: TRAZODONE HCL 50 MG TAB PO STA (00:06)
[2019-11-22 00:21] LABS: ALBUMIN/GLOBULIN RATIO 1.5 (0.8-2.0); ANION GAP 15.7 mmol/L (8-16); CALCIUM 9.2 mg/dL (8.4-10.2); CREATININE, SERUM 1.32 mg/dL (0.57-1.11); POTASSIUM 3.7 mmol/L (3.5-5.1)
[2019-11-22 00:23] LABS: CREATINE KINASE 39 IU/L (29-168)
[2019-11-22] MEDS ORDERED: OXYMETAZOLINE HCL 0.05% NAS 1 SPRAY BTL STA (01:34)
[2019-11-22] MEDS ORDERED: FLUTICASONE PROPIONATE NASAL SPRAY NS STA (01:36)
--- NOTE | 2019-11-22 01:55 | Diagnostic Imaging Report ---
EXAM: CT Abdomen and Pelvis WITHOUT contrast INDICATION: ^epigastric pain COMPARISON: None. TECHNIQUE: Abdomen and pelvis were scanned utilizing a multidetector helical scanner from the lung base to the pubic symphysis without administration of IV contrast. Absence of intravenous contrast decreases sensitivity for detection of focal lesions and vascular pathology. Coronal and sagittal reformations were obtained. Routine protocol was performed. IV CONTRAST: None ORAL CONTRAST: Water COMPLICATIONS: None RADIATION DOSE: Total DLP: 743.1 mGy*cm Estimated effective dose: (DLP x 0.015 x size factor) mSv CTDIvol has been reviewed. It is below the limits set by the Radiation Protocol Committee (RPC). FINDINGS: LINES and TUBES: None. LOWER THORAX: Bibasilar linear atelectasis/scarring. HEPATOBILIARY: Unenhanced liver is unremarkable. No biliary ductal dilation. GALLBLADDER: Surgically absent. SPLEEN: No splenomegaly. PANCREAS: Atrophic. No focal masses or ductal dilatation. ADRENALS: No adrenal nodules KIDNEYS/URETERS: Absent right kidney. No left hydronephrosis. Limited for evaluation of renal parenchyma without intravenous contrast. No stones. GI TRACT: No abnormal distention, wall thickening, or evidence of bowel obstruction. There are diverticula within the colon without evidence of diverticulitis. Appendix is not visualized. PELVIC ORGANS/BLADDER: Unremarkable. LYMPH NODES: No lymphadenopathy. VESSELS: There is mild atherosclerotic disease in the aorta and major arterial branches. Borderline aneurysmal dilatation of infrarenal abdominal aorta measuring 3 cm. PERITONEUM / RETROPERITONEUM: No free air or fluid. BONES: Degenerative changes of spine. SOFT TISSUES: Partially seen bilateral breast subcentimeter calcifications. IMPRESSION: 1. Limited study without intravenous contrast. 2. Colonic diverticulosis without evidence of diverticulitis. 3. 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 4. Absent right kidney. Signed by: Dr. Jaime Swan MD on 11/22/2019 1:52 AM
== END 2019-11-22 03:05 | disposition home or self-care (01) ==
LOC: ER 23:27
DX: R10.13 Epigastric pain (principal); R94.4 Abnormal results of kidney function studies; K57.90 Diverticulosis of intestine, part unspecified, without perforation or abscess without bleeding; I10 Essential (primary) hypertension; J44.9 Chronic obstructive pulmonary disease, unspecified; Z85.3 Personal history of malignant neoplasm of breast; Z85.528 Personal history of other malignant neoplasm of kidney
CPT/HCPCS: 36415; 74176; 80053; 82550; 82553; 83690; 83880; 84484; 85025; 96374; 99284; J7030

== ENCOUNTER 2019-11-25 23:05 | Inpatient (IN) | payer MEDICARE, OTHER ==
[~2019-11-25] VITALS: Ht 167.6 cm; Wt 115.2 kg
[2019-11-25] MEDS ORDERED: PANTOPRAZOLE 40 MG 10ML VIAL IV STA (23:25)
[2019-11-25] MEDS ORDERED: ONDANSETRON HCL INJ 2MG/ML 2ML 2 MG/ML VIAL IV STA (23:25)
[2019-11-25] MEDS ORDERED: ACETAMINOPHEN/CODEINE ELIX 120-12 MG/5 ML UDC PO ONE (23:30)
--- OUTSIDE RECORDS SUMMARY | 2019-11-25 23:53 | XMS REPORT | Continuity of Care Document ---
Author Author [facility] t Organization [facility] Address [address] [place] [address] Phone Unavailable Care Team Providers Care Electrical Tester Name Role Phone MAAME ACOSTA, MD PIKE PCP JED NAVAS Attphys Unavailable GELTALON DUMONT Attphys Unavailable MARTINEZ, GRACY Attphys Unavailable MARTINEZ, GRACY Admphys Unavailable Payers Payer Name Policy Type Policy Number Effective Date Expiration Date S [facility] [id number] 2019 00:00:00 [facility] [id number] 2014 00:00 :00 [facility] Care Improvement Plus [id number] 2017 00:00:00 [facility] Problems Condition Name Condition Details Condition Category Status Onset Date Resolution Date Last Treatment Date Treating Clinician Comments Source Pneumonia Pneumonia Problem Active 2015-11-09 00:00:00 [facility] Failure of outpatient treatment Problem Active 2015-11-09 00:00:00 [facility] Thrombocytopenia Thrombocytopenia Problem Active [facility] Allergies, Adverse Reactions, Alerts Allergy Name Allergy Type Status Severity Reaction(s) Onset Date Inacti ve Date Treating Clinician Comments Source PAPER TAPE DA Active U 2019-04-13 00:00:00 [facility] Oxycodone Allergy to substance Active 2018-12-10 00:00:00 [facility] Aspirin Allergy to substance Active 2018-12-10 00:00:00 [facility] oxycodone DA Active U 2017-09-18 00:00:00 [facility] aspirin DA Active U 2017-09-18 00:00:00 [facility] PAPER TAPE Allergy to substance Active 2017-01-27 00:00:00 [facility] Family History Family Member Diagnosis Comments Start Date Stop Date Source 33 FATHER Family history of chronic obstructive pulmonary disease [facility] 32 MOTHER Family history of chronic obstructive pulmonary disease [facility] 32 MOTHER Family history of emphysema [facility] 09 BROTHER Family history of chronic obstructive pulmonary disease [facility] 09 BROTHER Family history of congestive heart failure [facility] 09 SISTER Family history of chronic obstructive pulmonary disease [facility] Social History Social Habit Start Date Stop Date Quantity Comments Source Sex Assigned At 1950 00:00:00 1950 00:00:00 Female [facility] Medications Ordered Medication Name Filled Medication Name Start Date Stop Da te Current Medication? Ordering Clinician Indication Dosage Frequency Signature (SIG) Comments Components Source Acetaminophen With Codeine (Tylenol With Codeine #3 Ta blet) 1 Each TABLET Acetaminophen With Codeine (Tylenol With Codeine #3 Tablet) 1 Each TABLET Yes 300 As Needed [facility] Albuterol Sulfate Albuterol Sulfate Yes .6 3 Every 6 Hours as needed for Shortness Of Breath [facility] Budesonide/Formoterol Fumarate (Symbicor t 160-4.5 Mcg Inhaler) 10.2 Gm HFA.AER.AD Budesonide/Formoterol Fumarate (Symbicor t 160-4.5 Mcg Inhaler) 10.2 Gm HFA.AER.AD Yes 160 Twice A Day as ne eded for Shortness Of Breath [facility] Cyclobenzaprine Hcl Cyclobenzaprine Hcl Yes 10 Daily as needed for Muscle Spasms [facility] Hydralazine Hcl Hydralazine Hcl Yes 25 Bedtime [facility] Hydralazine Hcl Hydralazine Hcl Yes 50 Every Mo rning [facility] Isosorbide Mononitrate Isosorbide Mononitrate Yes 30 Daily [facility] Levothyroxine Sodium Levothyroxine Sodium Yes 137 Daily [facility] Prednisone Prednisone Yes 10 Bedtime [facility] Prednisone Prednisone Yes 20 Daily [facility] Amlodipine Besylate Amlodipine Besylate 2018-12-10 00:00:00 No 5 Daily [facility] Amoxicillin/Potassium Clav (Augmentin 875-125 Tablet) 1 Each TABLET Amoxicillin/Potassium Clav (Augmentin 875-125 Tablet) 1 Each TABLET 2018-12-10 00:00:00 No 875 Daily [facility] Cyanocobalamin (Vitamin B-12) (B-12) 1,000 Mcg TABLET. ER Cyanocobalamin (Vitamin B-12) (B-12) 1,000 Mcg TABLET.ER 2018-12-10 00:00:00 No Daily [facility] Furosemide Furosemide 2018-12-10 00:00:00 No 20 Gemma ly [facility] Pantoprazole Sodium (Protonix) 40 Mg TABLET. Pantopr azole Sodium (Protonix) 40 Mg TABLET. 2018-12-10 00:00:00 No 40 Daily [facility] Potassium Bicarbonate/Cit Ac (Potassium 25 Meq Tablet Eff) 25 Meq TABLET.EFF Potassium Bicarbonate/Cit Ac (Potassium 25 Meq Tablet Eff) 25 Meq TABLET.EFF 2018-12-10 00:00:00 No 8 Daily [facility] Tizanidine Hcl Tizanidine Hcl 2018-12-10 00:00:00 No 2 Daily [facility] Levalbuterol Hcl (Xopenex) 0.63 Mg/3 Ml VIAL.NEB Leval buterol Hcl (Xopenex) 0.63 Mg/3 Ml VIAL.NEB 2017-01-27 00:00:00 No Prn Q 4 HOURS [facility] Levothyroxine Sodium (Tirosint) 100 Mcg CAPSULE Levoth yroxine Sodium (Tirosint) 100 Mcg CAPSULE 2017-01-27 00:00:00 No 75 Daily [facility] Mometasone Furoate (Nasonex) 17 Gm SPRAY Mometasone Fu roate (Nasonex) 17 Gm SPRAY 2017-01-27 00:00:00 No Daily [facility] Amlodipine Besylate Amlodipine Besylate 2015-11-09 00:00:00 No 5 Daily [facility] Azithromycin (Z-Peter) 250 Mg TABLET Azithromycin (Z-Peter) 250 Mg T ABLET 2015-11-09 00:00:00 No 250 Daily [facility] Meclizine Hcl (Motion Sickness Relief Ii) 25 Mg TABLET Meclizine Hcl (Motion Sickness Relief Ii) 25 Mg TABLET 2015-11-09 00:00:00 No 25 Prn [facility] Methylprednisolone (Medrol Dose Pack) 4 Mg/Dose Pack T AB Methylprednisolone (Medrol Dose Pack) 4 Mg/Dose Pack TAB 2015-11-09 00:00:00 No Daily [facility] Prednisone Prednisone 2015-11-09 00:00:00 No 10 Gemma ly [facility] Ranitidine Hcl Ranitidine Hcl 2015-11-09 00:00:00 No 150 Daily [facility] Vital Signs Vital Name Observation Time Observation Value Comments Source Weight 2019-11-21 23:08:00 272 [lb_av] [facility] BMI (Body Mass Index) 2019-11-21 23:08:00 46.7 kg/m2 [facility] Procedures Procedure Date / Time Performed Performing Clinician [facility] e CT of abdomen and pelvis without contrast 2019-11-22 00:00:00 [facility] Plan of Care Planned Activity Planned Date Details Comments Source Instructions Abdominal Pain - Adult [facility] Encounters Start Date/Time End Date/Time [facility] Ad[facility] Encounter ID Source 2019-04-13 17:47:00 Inpatient U [facility] 2019-02-21 20:07:00 Inpatient U [facility] [id number] [facility] 2018-12-12 14:03:00 2018-12-14 15:40:00 Discharged Inpatient 3 TALON TSANG [facility] [id number] [facility] 2018-12-10 11:59:00 2018-12-10 11:59:00 Registered Clinic [facility] [id number] [facility] Results Test Description Test Time Test Comments Results Result Comments Source CT ABDOMEN/PELVIS WO 2019-11-22 01:28:00 [place] [address] Patient Name: DONNA SOMMERS MR #: [id number] : 1950 Age/Sex: 69/F Req #: [id number] Adm Physician: Ordered by: JED NAVAS DO Report #: [id number] Location: ER Room/Bed: Procedure: [id number] CT/CT ABDOMEN/PELVIS WO Exam Date: 11/22/19 Exam Time: 0112 REPORT STATUS: Signed EXAM: CT Abdomen and Pelvis WITHOUT contrast INDICATION: epigastric pain COMPARISON: None. TECHNIQUE: Abdomen and pelvis were scanned utilizing a multidetector helical scanner from the lung base to the pubic symphysis without administration of IV contrast. Absence of intravenous contrast decreases sensitivity for detection of focal lesions and vascular pathology. Coronal and sagittal reformations were obtained. Routine protocol was performed. IV CONTRAST: None ORAL CONTRAST: Water COMPLICATIONS: None RADIATION DOSE: Total DLP: 743.1 mGy*cm Estimated effective dose: (DLP x 0.015 x size factor) mSv CTDIvol has been reviewed. It is below the limits set by the Radiation Protocol Committee (RPC). FINDINGS: LINES and TUBES: None. LOWER THORAX: Bibasilar linear atelectasis/scarring. HEPATOBILIARY: Unenhanced liver is unremarkable. No biliary ductal dilation. GALLBLADDER: Surgically absent. SPLEEN: No splenomegaly. PANCREAS: Atrophic. No focal masses or ductal dilatation. ADRENALS: No adrenal nodules KIDNEYS/URETERS: Absent right kidney. No left hydronephrosis. Limited for evaluation of renal parenchyma without intravenous contrast. No stones. GI TRACT: No abnormal distention, wall thickening, or evidence of bowel obstruction. There are diverticula within the colon without evidence of diverticulitis. Appendix is not visualized. PELVIC ORGANS/BLADDER: Unremarkable. LYMPH NODES: No lymphadenopathy. VESSELS: There is mild atherosclerotic disease in the aorta and major arterial branches. Borderline aneurysmal dilatation of infrarenal abdominal aorta measuring 3 cm. PERITONEUM / RETROPERITONEUM: No free air or fluid. BONES: Degenerative changes of spine. SOFT TISSUES: Partially seen bilateral breast subcentimeter calcifications. IMPRESSION: 1. Limited study without intravenous contrast. 2. Colonic diverticulosis without evidence of diverticulitis. 3. 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 4. Absent right kidney. Signed by: Dr. Jaime Samayoa MD on 11/22/2019 1:52 AM Dictated By: JAIME SAMAYOA MD 1 Transcribed By: OSMIN on 11/22/19151 COPY TO: JED NAVAS DO Blood leukocytes automated count (number/volume) 2019-11-21 23:45:00 Test Item White Blood Count (test code = 6690-2) 11.56 4.8-10.8 [facility] erythrocytes automated count (number/volume)2019-11-21 23:45:00* Test Item Value Reference Range Interpretation Comments Red Blood Count (test code = 789-8) 4.80 3.6-5.1 [facility] hemoglobin measurement (moles/volume)2019-11-21 23:45:00* Test Item Value Reference Range Interpretation Comments Hemoglobin (test code = 53932-2) 14.0 12.0-16.0 [facility] HospitalAutomated blood hematocrit (volume fraction)2019-11-21 23:45:00* Test Item Value Reference Range Interpretation Comments Hematocrit (test code = 4544-3) 43.9 34.2-44.1 [facility] HospitalAutomated erythrocyte mean corpuscular [id number] 23:45:00* Test Item Value Reference Range Interpretation Comments Mean Corpuscular Volume (test code = 787-2) 91.5 81-99 [facility] HospitalAutomated erythrocyte mean corpuscular hemoglobin (mass per erythrocyte)2019-11-21 23:45:00* Test Item Value Reference Range Interpretation Comments Mean Corpuscular Hemoglobin (test code = 785-6) 29.2 28-32 [facility] HospitalAutomated erythrocyte mean corpuscular hemoglobin concentration measurement (mass/volume)2019-11-21 23:45:00* Test Item Value Reference Range Interpretation Comments Mean Corpuscular Hemoglobin Concent (test code = 786-4) 31.9 31-35 [facility] HospitalRDW LexGh-Erf3185-76-03 23:45:00* Test Item Value Reference Range Interpretation Comments Red Cell Distribution Width (test code = 74405-1) 14.0 11.7 -14.4 [facility] HospitalAutomated blood platelet count (count/volume)2019-11-21 23:45:00* Test Item Value Reference Range Interpretation Comments Platelet Count (test code = 777-3) 222 140-360 [facility] HospitalAutscionhealthed blood segmented neutrophil count as percentage of total cffonurwfn7546-96-21 23:45:00* Test Item Value Reference Range Interpretation Comments Neutrophils (%) (Auto) (test code = 05326-5) 82.7 38.7-80.0 [facility] HospitalAutomated blood lymphocyte count as percentage ot total mirrzbqeck6026-61-24 23:45:00* Test Item Value Reference Range Interpretation Comments Lymphocytes (%) (Auto) (test code = 736-9) 10.6 18.0-39.1 [facility] HospitalAutomated blood monocyte count as percentage of total eguqxsbfhw4579-66-91 23:45:00* Test Item Value Reference Range Interpretation Comments Monocytes (%) (Auto) (test code = 5905-5) 4.3 4.4-11.3 [facility] HospitalAutomated blood eosinophil count as percentage of total bxdfauyzxb5898-72-48 23:45:00* Test Item Value Reference Range Interpretation Comments Eosinophils (%) (Auto) (test code = 713-8) 1.2 0.0-6.0 [facility] HospitalAutomated blood basophil count as percentage of total kkogxglmoe5383-95-06 23:45:00* Test Item Value Reference Range Interpretation Comments Basophils (%) (Auto) (test code = 706-2) 0.8 0.0-1.0 [facility] HospitalFluoroscopic procedure less than one hour hezhbims1186-97-23 23:45:00* Test Item Value Reference Range Interpretation Comments IM GRANULOCYTES % (test code = IM GRANULOCYTES %) 0.4 0.0- 1.0 [facility] HospitalAutomated blood neutrophil count 2019-11-21 23:45:00* Test Item Value Reference Range Interpretation Comments Neutrophils # (Auto) (test code = 751-8) 9.6 2.1-6.9 [facility] HospitalBlood lymphocytes count (number/volume) 2019-11-21 23:45:00* Test Item Value Reference Range Interpretation Comments Lymphocytes # (Auto) (test code = 66521-1) 1.2 1.0-3.2 [facility] HospitalBlood monocytes automated count (number/volume)2019-11-21 23:45:00* Test Item Value Reference Range Interpretation Comments Monocytes # (Auto) (test code = 742-7) 0.5 0.2-0.8 [facility] HospitalAutomated blood eosinophil count 2019-11-21 23:45:00* Test Item Value Reference Range Interpretation Comments Eosinophils # (Auto) (test code = 711-2) 0.1 0.0-0.4 [facility] HospitalAutomated blood basophil count (count/volume)2019-11-21 23:45:00* Test Item Value Reference Range Interpretation Comments Basophils # (Auto) (test code = 704-7) 0.1 0.0-0.1 [facility] HospitalFluoroscopic procedure less than one hour vzoqkryq2394-74-87 23:45:00* Test Item Value Reference Range Interpretation Comments Absolute Immature Granulocyte (auto (renee t code = Absolute Immature Granulocyte (auto) 0.05 0-0.1 [facility] sodium measurement (moles/volume)2019-11-21 23:45:00* Test Item Value Reference Range Interpretation Comments Sodium Level (test code = 2951-2) 139 136-145 [facility]wood[facility] or plasma potassium measurement (moles/volume)2019-11-21 23:45:00* Test Item Value Reference Range Interpretation Comments Potassium Level (test code = 2823-3) 3.7 3.5-5.1 [facility] or plasma chloride measurement (moles/volume)2019-11-21 23:45:00* Test Item Value Reference Range Interpretation Comments Chloride Level (test code = 2075-0) 104 98-107 [facility] or plasma carbon dioxide, total measurement (moles/volume)2019-11-21 23:45:00* Test Item Value Reference Range Interpretation Comments Carbon Dioxide Level (test code = 2028-9) 23 22-29 [facility] or plasma anion [id number] 23:45:00* Test Item Value Reference Range Interpretation Comments Anion Gap (test code = 69862-1) 15.7 8-16 [facility] plasma urea nitrogen measurement (mass/volume)2019-11-21 23:45:00* Test Item Value Reference Range Interpretation Comments Blood Urea Nitrogen (test code = 3094-0) 12 7-26 [facility] plasma creatinine measurement (mass/volume)2019-11-21 23:45:00* Test Item Value Reference Range Interpretation Comments Creatinine (test code = 2160-0) 1.32 0.57-1.11 [facility] or plasma urea nitrogen/creatinine mass wzqzh8176-70-85 23:45:00* Test Item Value Reference Range Interpretation Comments BUN/Creatinine Ratio (test code = 3097-3) 9 6-25 [facility] HospitalEstimated glomerular filtration rate (GFR) yzfqgfyerkidr8082-20-14 23:45:00* Test Item Value Reference Range Interpretation Comments Estimat Glomerular Filtration Rate (test code = 017194190) 40 >60 Ranges were taken from the National Kidney Disease Education Program and the [facility] Kidney Foundation literature.Reference ranges:60 or greater: Nprflf11-69 ( for 3 consecutive months): Chronic kidney disease 15 or less: Kidney failureThe [facility] of [facility] HospitalGlucose lmnwkyrxels2265-60-76 23:45:00* Test Item Value Reference Range Interpretation Comments Glucose Level (test code = GQD0050) 133 74-118 [facility] or plasma calcium measurement (mass/volume)2019-11-21 23:45:00* Test Item Value Reference Range Interpretation Comments Calcium Level (test code = 15095-8) 9.2 8.4-10.2 [facility] or plasma total bilirubin measurement (mass/volume)2019-11-21 23:45:00* Test Item Value Reference Range Interpretation Comments Total Bilirubin (test code = 1975-2) 0.6 0.2-1.2 [facility] HospitalFluoroscopic procedure less than one hour brvrjpte3300-44-86 23:45:00* Test Item Value Reference Range Interpretation Comments Aspartate Amino Transf (AST/SGOT) (test code = Aspartate Amino Transf (AST/SGOT)) 48 5-34 [facility] or plasma alanine aminotransferase measurement (enzymatic activity/volume)2019-11-21 23:45:00* Test Item Value Reference Range Interpretation Comments Alanine Aminotransferase (ALT/SGPT) (test code = 1742-6) 26 0-55 [facility] or plasma protein measurement (mass/volume)2019-11-21 23:45:00* Test Item Value Reference Range Interpretation Comments Total Protein (test code = 2885-2) 6.6 6.5-8.1 [facility] or plasma albumin measurement (mass/volume)2019-11-21 23:45:00* Test Item Value Reference Range Interpretation Comments Albumin (test code = 1751-7) 4.0 3.5-5.0 [facility] HospitalPlasma globulin measurement (mass/volume) 2019-11-21 23:45:00* Test Item Value Reference Range Interpretation Comments Globulin (test code = 46194-8) 2.6 2.3-3.5 [facility] or plasma albumin/globulin mass hocxr8317-10-08 23:45:00* Test Item Value Reference Range Interpretation Comments Albumin/Globulin Ratio (test code = 1759-0) 1.5 0.8-2.0 [facility] plasma alkaline phosphatase measurement (enzymatic activity/volume)2019-11-21 23:45:00* Test Item Value Reference Range Interpretation Comments Alkaline Phosphatase (test code = 6768-6) 91 40-150 [facility] HospitalBNP Oar-cWto9002-24-03 23:45:00* Test Item Value Reference Range Interpretation Comments B-Type Natriuretic Peptide (test code = 77454-3) < 10.0 0-100 [facility] or plasma creatine kinase measurement (enzymatic activity/volume)2019-11-21 23:45:00* Test Item Value Reference Range Interpretation Comments Creatine Kinase (test code = 2157-6) 39 29-168 [facility] or plasma creatine kinase MB measurement (mass/volume)2019-11-21 23:45:00* Test Item Value Reference Range Interpretation Comments Creatine Kinase MB (test code = 17804-3) 0.80 0-5.0 [facility] HospitalTroponin I measurement by highly sensitive enzyme hgmfjzuglcp0011-17-17 23:45:00* Test Item Value Reference Range Interpretation Comments Troponin I (test code = 78405-8) < 0.001 0-0.300 [facility] or plasma lipase measurement (enzymatic activity/volume)2019-11-21 23:45:00* Test Item Value Reference Range Interpretation Comments Lipase (test code = 3040-3) 23 8-78 [facility] HospitalBREAST2020-08-06 13:28:00 RUN DATE: 10/24/19 [place] [facility] PAGE 1 RUN TIME: 1329 Specimen Inqui ry RUN USER: INTERFACE PATIENT: DONNA SOMMERS ACCT #: [id number] LOC: [place] #: [id number] AGE/SX: 69/F ROOM: RE10/22/19REG DR: Gracy Martinez MD : 48 BED: DIS: STATUS: PRE REF TLOC: SPEC #: [id number] RECD: 10/22/19 STATUS: SOUT REQ #: [id number] SHARRI: 10/22/19- SUBM DR: Gracy Martinez MD ENTERED: 10/22/19-9077 SP TYPE: BREAST OTHR DR: TUMOR REGISTRY ORDERED: GROSS COPIES TO: Gracy Martinez MD [address] [place] [address] [place] [address] TUMOR REGISTRY MARKERS: I NTRADEPARTMENTAL CONSULT, MALIGNANCY PROCEDURES: GROSS (10/24/19-1313) TISSUES: 1. LEFT BREAST, NOS - CBX W/CALCIFICATIONS 2. LEFT BREAST, NOS - CBX 10 O'CLOCK CLINICAL HISTORY COLLECTION DATE: 10/22/19 LEFT BREAST CALCIFICATIONS, ESTIMATED TIME IN FORMALIN: 31 HOURS COMMENT The areas of high grade ductal carcinoma in situ measure up to 0.9 cm in wilmer th in the core biopsies. Block (1A) will be sent for immunostains for estrogen and progesterone receptors and an addendum report will be issued. 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 AND CALCIFICATIONS NO INVAS ION SEEN DUCTAL EPITHELIAL HYPERPLASIA (SEE COMMENT) Left br east, stereotactic core biopsy without calcifications: DUCTAL CARCINOMA I N SITU, NUCLEAR GRADE 3 CONTINUED ON NEXT PAGE RUN DATE: 10/24/19 [place] [facility] PAGE 2 RUN TIME: 1329 Specimen I nquiry RUN USER: INTERFACE SPEC #: [id number] PATIENT: MARJAN SOMMERSU #[id number] (Continued) FINAL DIAGN OSIS (Continued) NO AREAS OF INVASION SEEN DUCTAL EPITH ELIAL HYPERPLASIA (SEE COMMENT) DMW/ D 32392P9 MACROSCOPIC Specimen (1) is received in formalin labeled with the patient's n carlos, "left breast, 11:40 time in formalin" and consists of multiple core bio psies of yellow and yellow-argueta fibrofatty tissue measuring 2.7 x 2.0 x 0.3 cm in aggregate. The tissue is entirely submitted (1A-1B). Red ink is applied. Specimen (2) is received in formalin labeled with the patient's name, "l eft breast 10 o'clock 5 cm fn" and consists of multiple core biopsies of yello w fatty tissue measuring 2.0 x 1.3 x 0.2 cm in aggregate. [place] ink is appli ed and the tissue is submitted as (2). GROSS PERFORMED AT [facility] [address] [place] [address] (p)[phone] MICROSCOPIC All of the stains , including any controls performed, stain appropriately. MICROSCOPIC PER FORMED AT [facility] [address] [place] [address] (p)[phone] PERFORMING SITE Diagnos is performed at: [facility] [address], [place] [address] CONTINUED ON NEXT PAGE ------- -----RUN DATE: 10/24/19 [facility] PAGE 3 RUN TIME: 1329 Specimen Inquiry RUN USER: INTERFACE SPEC #: [id number] PATIENT: DONNA SOMMERS #[id number] (Continued) Signed SIGNATURE ON FILE Bridget Montgomery MD 10/24/19 1328 * * END OF REPORT [id number] 13:28:00 RUN DATE: 10/28/19 [facility] PAGE 1 RUN TIME: 1402 Specimen Inqui ry RUN USER: INTERFACE PATIENT: DONNA SOMMERS ACCT #: V [id number] LOC: [place] #: [id number] AGE/SX: 69/F ROOM: RE10/22/19REG DR: Gracy Martinez MD : 48 BED: DIS: STATUS: PRE REF TLOC: SPEC #: [id number] RECD: 10/22/19 STATUS: LULI BENTLEY #: [id number] SHARRI: 10/22/19- SUBM DR: Gracy Martinez MD ENTERED: 10/22/191089 SP TYPE: BREAST OTHR DR: TUMOR REGISTRY ORDERED: GROSS COPIES TO: Gracy Martinez MD [address] [place] [address] TUMOR REGISTRY MARKERS: I NTRADEPARTMENTAL CONSULT, MALIGNANCY PROCEDURES: GROSS (10/24/19-1313) TISSUES: 1. LEFT BREAST, NOS - CBX W/CALCIFICATIONS 2. LEFT BREAST, NOS - CBX 10 O'CLOCK ADDENDUM FINDINGS Addendum #1 Entered: An Immunohistochemistry report is received from [facility] Accession#: [id number] and the interpretation is as follows: Interpretation Inter pretation ESTROGEN RECEPTOR: NEGATIVE (<1% UNFAVORABLE) PROGESTERONE RECEPTOR: NEGATIVE (<1% UNFAVORABLE) Result Reference Ranges: Estrogen Receptor and Progesterone Receptor Positive: >1% Negative: <1% The presence and level of hormone receptors in invasive tumor cells are strongly correlated with response to hormonal therapy and clinical outcome. Appropriate controls were performed for each immunostain. CONTINUED ON NEXT PAGE RUN DATE: 10/28/19 [facility] PAGE 2 RUN TIME: 1402 Specimen Inquiry RUN USER: GALILEO CE SPEC #: [id number] PATIENT: DONNA SOMMERS #[id number] (Chanel nued) ADDENDUM FINDINGS (Continued) Processing of specimen: Fixation in 10% neutral buffered formalin; paraffin embedded. Per rep ort, estimated fixation time is >6, <72h -optimal fixation time: 6 to 72 hours. Optiview DAB ER-SP 1 IA-clone 16 This test was developed and its performance characteristics determined by [facility]. It has not been cleared or approved [...] Electronic Signature Alvarado Frazier MD CPT Code(s): 61903(x2) The Technical and Professional components were performed at [facility], [facility] , [address], [place] [address]. Addendum Signed SIGNATURE ON FILE Bridget Montgomery MD 10/28/19 1401 CLINICAL HISTORY COLLECTION DATE: 10/22/19 LEFT BREAST CALCIFICATIONS, ESTIMATED TIME IN FORMALIN: 31 HOURS C OMMENT The areas of high grade ductal carcinoma in situ measure up to 0.9 cm i n length in the core biopsies. Block (1A) will be sent for immunostains for es trogen and progesterone receptors and an addendum report will be issued. Intradepartmental consultation: RRB FINAL DIAGNOSIS Left breast, s tereotactic core needle biopsy with calcifications: DUCTAL CARCINOMA IN S ITU, NUCLEAR GRADE 3 WITH CENTRAL NECROSIS AND CALCIFICATIONS NO INVASION SEEN CONTINUED ON NEXT PAGE ----- -------RUN DATE: 10/28/19 [facility] PAGE 3 RUN TIME: 1402 Specimen Inquiry RUN USER: INTERFACE SPEC #: [id number] PATIENT: DONNA SOMMERS #[id number] (Continued) FINAL DIAGNOSIS (Continued) DUCTAL EPITHELIAL HYPERPLASIA (SEE COMMENT) Left breast, stereotactic core biopsy without calcifications: DUCTAL C ARCINOMA IN SITU, NUCLEAR GRADE 3 NO AREAS OF INVASION SEEN DUCTAL EPITHELIAL HYPERPLASIA (SEE COMMENT) DMW/ D 69784O2 MACROSCOPIC Specimen (1) is received in formalin labeled with the patie nt's name, "left breast, 11:40 time in formalin" and consists of multiple co re biopsies of yellow and yellow-argueta fibrofatty tissue measuring 2.7 x 2.0 x 0.3 cm in aggregate. The tissue is entirely submitted (1A-1B). Red ink is kathrine lied. Specimen (2) is received in formalin labeled with the patient's na me, "left breast 10 o'clock 5 cm fn" and consists of multiple core biopsies of yellow fatty tissue measuring 2.0 x 1.3 x 0.2 cm in aggregate. [place] ink is applied and the tissue is submitted as (2). GROSS PERFORMED AT [facility] [address] [place] [address] (P)[phone] MICROSCOPIC All of the stains, including any controls performed, stain appropriately. MICROSCOP IC PERFORMED AT [facility] [address] [place] [address] (P)[phone] CONTINUED ON NEXT PAGE RUN DATE: 10/28/19 [facility] PAGE 4 RUN TIME: 1402 Specimen Inquiry RUN USER: INTERFACE SPEC #: [id number] PATIENT: DONNA SOMMERS #[id number] (Continued) PERFORMING SITE Diagnosis performed at: [facility] [address] [facility] [place] [address] Signed SIGNATURE ON FILE Bridget Montgomery MD 10/24/19 1328 ---- -------- END OF REPORT [id number] 13:28:00 RUN DATE: 11/01/19 [facility] PAGE 1 RUN TIME: 1540 Specimen Inqui ry RUN USER: INTERFACE PATIENT: DONNA SOMMERS ACCT #: V [id number] LOC: KATALINA U #: [id number] AGE/SX: 69/F ROOM: RE10/22/19REG DR: Gracy Martinez MD : 48 BED: DIS: STATUS: PRE REF TLOC: SPEC #: [id number] RECD: 10/22/19-1448 STATUS: SOUT REQ #: [id number] SHARRI: 10/22/19- SUBM DR: Gracy Martinez MD ENTERED: 10/22/193023 SP TYPE: BREAST OTHR DR: TUMOR REGISTRY ORDERED: GROSS COPIES TO: Gracy Martinez MD [address] [place] [address] TUMOR REGISTRY MARKERS: I NTRADEPARTMENTAL CONSULT, MALIGNANCY PROCEDURES: GROSS (10/24/19-1313) TISSUES: 1. LEFT BREAST, NOS - CBX W/CALCIFICATIONS 2. LEFT BREAST, NOS - CBX 10 O'CLOCK ADDENDUM FINDINGS Addendum #2 Entered: -143 ADDENDUM CORRECTION The second specimen is actually the left b reast ultrasound guided biopsy 10 o'clock, 5 cm fn (not left breast stereotact ic core biopsy without calcifications 10 o'clock, 5 cm fn. The diagnosis basil ins unchanged. Addendum Signed SIGNATURE ON FILE Bridget Montgomery MD 11/01/19 1540 Addendum #1 Entered: 10/28/19 9 An Immunohistochemistry report is received from [employer] and the interpretation is as follows: Interpretation Interpretation ESTROGEN RECEPTOR: NEGATIVE (<1% UNFAVORABLE) CONTINUED ON NEXT PAGE ---- --------RUN DATE: 11/01/19 [facility] PAGE 2 RUN TIME: 1540 Specimen Inquiry RUN USER: INTERFACE SPEC #: [id number] PATIENT: DONNA SOMMERS U #[id number] (Continued) ADDENDUM FINDINGS (Continued) PROGESTERONE RECEPTOR: NEGATIVE [...] to 72 hours. Optiview DAB ER-SP 1 IA-clone 16 This test was developed and its performance characteristics determined by [facility]. It has not been cleared or approved by the U.S. Food and Drug Administration. The FDA has determined that such clearance is not necessa ry. This test is used for clinical purposes. It should not be regarded as inves tigational or for research. This laboratory is certified under the Clinical Lab oratory Improvement Amendments of 1988 (CLIA-88) as qualified to perform high c omplexity clinical testing. Electronic Signature Alvarado Frazier MD CP T Code(s): 93096(x2) The Technical and Professional components were performe d at [facility], [address] [facility] , [address], [place] [address]. Addendum Signed SIGNATURE ON FILE Bridget Montgomery MD 01/06 1401 CLINICAL HISTORY COLLECTION DATE: 10/22/19 LEFT BREAST CALCIFICATIONS, ESTIMATED TIME IN FORMALIN: 31 HOURS CONTINUED ON NEXT PAGE RUN DATE: 11/01/19 [facility] PAGE 3 RUN DORCAS E: 1540 Specimen Inquiry RUN USER: INTERFACE -SPEC #: [id number] PATIENT: DONNA SOMMERS #[id number] (Continued) COMMENT The areas of high grade ductal carcinoma in situ measure up to 0.9 cm in length in the core biopsies. Block ( 1A) will be sent for immunostains for estrogen and progesterone receptors and a n addendum report will be issued. Intradepartmental consultation: RRB FINAL DIAGNOSIS Left breast, stereotactic core needle biopsy with calc ifications: DUCTAL CARCINOMA IN SITU, NUCLEAR GRADE 3 WITH CENTRAL NECROS IS AND CALCIFICATIONS NO INVASION SEEN DUCTAL EPITHELIAL HYPERPLASIA (SEE COMMENT) Left breast, stereotactic core biopsy wit hout calcifications: DUCTAL CARCINOMA IN SITU, NUCLEAR GRADE 3 NO AREAS OF INVASION SEEN DUCTAL EPITHELIAL HYPERPLASIA (SEE COMMENT) DMW/sm D 92505K9 MACROSCOPIC Specimen (1) is receive d in formalin labeled with the patient's name, "left breast, 11:40 time in for lena" and consists of multiple core biopsies of yellow and yellow-argueta fibrofa tty tissue measuring 2.7 x 2.0 x 0.3 cm in aggregate. The tissue is entirely submitted (1A-1B). Red ink is applied. Specimen (2) is received in fo rmalin labeled with the patient's name, "left breast 10 o'clock 5 cm fn" and c onsists of multiple core biopsies of yellow fatty tissue measuring 2.0 x 1.3 x 0.2 cm in aggregate. [place] ink is applied and the tissue is submitted as (2 ). GROSS PERFORMED AT [facility] [address] [place] [address] (p)[phone] CONTINUED ON NEXT PAGE RUN SABRINA E: 11/01/19 [facility] PAGE 4 RUN TIME: 1540 Specimen Inquiry RUN USER: INTERFACE SPEC #: [id number] PATIENT: DONNA SOMMERS # [id number] (Continued) MICROSCOPIC All of the stain s, including any controls performed, stain appropriately. MICROSCOPIC PE RFORMED AT [facility] [address] [place] [address] (p)[phone] PERFORMING SITE Diagno sis performed at: [facility] [address] [place] [address] Signed SIGNATURE ON FILE Bridget Montgomery MD 10/24/19 1328 END OF REPORT - XR CHEST 1 [id number] 13:45:00 Name: SOMMERSDONNA MICHELLE [facility] : 1950 Age/S:69 /F [address] [facility] Unit#:[id number] Loc: [place] [address] Phys: Graciela Nickerson MD Dis Date: PHONE #: [phone] Status: REG ER FAX #: [phone] Exam Date: 04/13/2019 Re ason: sob' EXAMS: CPT CODE: [id number] XR CHEST 1 V 35316 EXAM: Chest x-ray, one view; INFORMATION: Shortness of breath; FINDINGS: There is significant enlargement of the heart. Increased basilar densities consiste nt with atelectatic changes in probable mild basilar edema. No obvio us effusions. IMPRESSION: 1. Cardiomegaly. 2. Pr obable mild left heart failure. 3. Basilar atelectatic changes. Location code: [facility] at 1345 Reported and signed by: Bentley Caballero M.D. CC: Dr. Gracy Martinez; Federico Nickerson MD Technologi st: UARA YANCEY, RT(R),CT Trnscrpt Data: 2019 (5852) [email or web address] Orig Print D/T: S: 04/13/2019 (13 23) PAGE 1 Signed Report URINALYSIS [id number] 13:38:00* Test Item Value Reference Range Interpretation Comments [...] per HPF NONE Urine Source? Clean CatchURINALYSIS [id number] 13:19:00* Test Item Value Reference Range Interpretation [...] per HPF NONE Urine Source? Clean CatchLACTIC [id number] 13:19:00* Test Item Value Reference Range Interpretation Comments LACTIC ACID (test code = LACT) 1.9 MMOL/L 0.4-1.9 N COMPREHENSIVE METABOLIC [id number] 13:12:00* Test Item Value Reference Range Interpretation [...] = ALKP) 87 U/L 38-126 N CPK-MB [id number] 13:12:00* Test Item Value Reference Range Interpretation Comments CREATINE KINASE (CK) (test code = CK) 40 U/L 26-192 N CKMB (test code = CKMBT) 1.7 ng/mL 0.0-5.0 N RELATIVE % INDEX (test code = REL%) 4.3 % [id number] 13:12:00* Test Item Value Reference Range Interpretation Comments TROPONIN-I (test code = TROPI) 0.05 ng/mL 0.00-0.056 N [id number] 13:05:00* Test Item Value Reference Range Interpretation Comments D-DIMER (test code = DDIMER) 218 ng/ml < 600 B-TYPE NATRIURETIC [id number] 13:01:00* Test Item Value Reference Range Interpretation Comments B-TYPE NATRIURETIC PEPTIDE (test code = BNP) 183 pg/mL 0-100 H COMPREHENSIVE METABOLIC [id number] 13:01:00* Test Item Value Reference Range Interpretation [...] (test code = ALKP) IUnit/L 45-117 CPK-MB [id number] 13:01:00* Test Item Value Reference Range Interpretation Comments CREATINE KINASE (CK) (test code = CK) IUnit/L 26-208 CKMB (test code = CKMBT) ng/mL 0-6.0 RELATIVE % INDEX (test code = REL%) % [id number] 13:01:00* Test Item Value Reference Range Interpretation Comments TROPONIN-I (test code = TROPI) ng/mL 0-0.045 CBC W/AUTO [id number] 12:47:00* Test Item Value Reference Range Interpretation [...] = BA#) 0.07 K/mm3 0.0-0.2 N Platelet Ijcydxmn7508-74-88 07:01:00* Test Item Value Reference Range Interpretation Comments Platelet Estimate (test code = 23730-6) MODERATELY DECREASED [facility] Morphology [id number] 07:01:00* Test Item Value Reference Range Interpretation Comments Platelet Morphology Comment (test code = 54383-2) FEW LARGE NO EDTA PLT CLUMPS SEENThe [facility] HospitalRed Cell Morphology Amddwbx4248-29-92 07:01:00* Test Item Value Reference Range Interpretation Comments Red Cell Morphology Comment (test code = 6742-1) NORMAL [facility] Surdy7031-83-30 06:52:00* Test Item Value Reference Range Interpretation Comments Sodium Level (test code = 2951-2) 140 136-145 [facility] HospitalPotassium Jcmps0607-30-01 06:52:00* Test Item Value Reference Range Interpretation Comments Potassium Level (test code = 2823-3) 4.3 3.5-5.1 [facility] HospitalChloride [id number] 06:52:00* Test Item Value Reference Range Interpretation Comments Chloride Level (test code = 2075-0) 106 98-107 [facility] HospitalCarbon Dioxide Solcx8457-17-94 06:52:00* Test Item Value Reference Range Interpretation Comments Carbon Dioxide Level (test code = 2028-9) 28 22-29 [facility] HospitalAnion Rou8379-01-65 06:52:00* Test Item Value Reference Range Interpretation Comments Anion Gap (test code = 04463-5) 10.3 8-16 [facility] HospitalBlood Urea Vwfwwubw5182-40-35 06:52:00* Test Item Value Reference Range Interpretation Comments Blood Urea Nitrogen (test code = 3094-0) 18 7-26 [facility] HospitalCreatinine2019-09-27 06:52:00* Test Item Value Reference Range Interpretation Comments Creatinine (test code = 2160-0) 1.04 0.57-1.11 [facility] HospitalBUN/Creatinine Uhgsl5419-63-56 06:52:00* Test Item Value Reference Range Interpretation Comments BUN/Creatinine Ratio (test code = 3097-3) 17 6-25 [facility] HospitalEstimat Glomerular Filtration Rate 2018-12-14 06:52:00* Test Item Value Reference Range Interpretation Comments Estimat Glomerular Filtration Rate (test code = 600849229) 53 >60 L Ranges were taken from the National Kidney Disease Education Program and the [facility] Kidney Foundation literature.Reference ranges:60 or greater: Omiyrx37-50 ( for 3 consecutive months): Chronic kidney disease 15 or less: Kidney failureThe University of [facility] Medical Branch [facility] HospitalGlucose Dddbl6806-23-67 06:52:00* Test Item Value Reference Range Interpretation Comments Glucose Level (test code = LJT8333) 97 74-118 [facility] HospitalCalcium Wlrfr5631-33-74 06:52:00* Test Item Value Reference Range Interpretation Comments Calcium Level (test code = 46682-3) 9.3 8.4-10.2 [facility] HospitalWhite Blood Heipi7854-44-20 06:07:00* Test Item Value Reference Range Interpretation Comments White Blood Count (test code = 6690-2) 13.49 4.8-10.8 H [facility] HospitalRed Blood Chins6926-35-29 06:07:00* Test Item Value Reference Range Interpretation Comments Red Blood Count (test code = 789-8) 4.69 3.6-5.1 [facility] HospitalHemoglobin2019-09-27 06:07:00* Test Item Value Reference Range Interpretation Comments Hemoglobin (test code = 79444-3) 13.2 12.0-16.0 [facility] HospitalHematocrit2019-09-27 06:07:00* Test Item Value Reference Range Interpretation Comments Hematocrit (test code = 4544-3) 43.5 34.2-44.1 [facility] HospitalMean Corpuscular Izpnik0844-50-80 06:07:00* Test Item Value Reference Range Interpretation Comments Mean Corpuscular Volume (test code = 787-2) 92.8 81-99 [facility] HospitalMean Corpuscular Ovzfhwiyxn8890-71-75 06:07:00* Test Item Value Reference Range Interpretation Comments Mean Corpuscular Hemoglobin (test code = 785-6) 28.1 28-32 [facility] HospitalMean Corpuscular Hemoglobin Concent 2018-12-14 06:07:00* Test Item Value Reference Range Interpretation Comments Mean Corpuscular Hemoglobin Concent (test code = 786-4) 30.3 31-35 L [facility] HospitalRed Cell Distribution Aeymd5878-26-46 06:07:00* Test Item Value Reference Range Interpretation Comments Red Cell Distribution Width (test code = 35938-7) 15.8 11.7 -14.4 H [facility] HospitalPlatelet Uahop7058-81-40 06:07:00* Test Item Value Reference Range Interpretation Comments Platelet Count (test code = 777-3) 105 140-360 L [facility] HospitalNeutrophils (%) (Auto)2018-12-14 06:07:00 * Test Item Value Reference Range Interpretation Comments Neutrophils (%) (Auto) (test code = 57981-3) 80.5 38.7-80.0 H [facility] HospitalLymphocytes (%) (Auto)2018-12-14 06:07:00 * Test Item Value Reference Range Interpretation Comments Lymphocytes (%) (Auto) (test code = 736-9) 12.2 18.0-39.1 L [facility] HospitalMonocytes (%) (Auto)2018-12-14 06:07:00* Test Item Value Reference Range Interpretation Comments Monocytes (%) (Auto) (test code = 5905-5) 6.3 4.4-11.3 [facility] HospitalEosinophils (%) (Auto)2018-12-14 06:07:00 * Test Item Value Reference Range Interpretation Comments Eosinophils (%) (Auto) (test code = 713-8) 0.1 0.0-6.0 [facility] HospitalBasophils (%) (Auto)2018-12-14 06:07:00* Test Item Value Reference Range Interpretation Comments Basophils (%) (Auto) (test code = 706-2) 0.4 0.0-1.0 [facility] HospitalIM GRANULOCYTES %2018-12-14 06:07:00* Test Item Value Reference Range Interpretation Comments IM GRANULOCYTES % (test code = IM GRANULOCYTES %) 0.5 0.0- 1.0 [facility] HospitalNeutrophils # (Auto)2018-12-14 06:07:00* Test Item Value Reference Range Interpretation Comments Neutrophils # (Auto) (test code = 751-8) 10.9 2.1-6.9 H [facility] HospitalLymphocytes # (Auto)2018-12-14 06:07:00* Test Item Value Reference Range Interpretation Comments Lymphocytes # (Auto) (test code = 87699-6) 1.6 1.0-3.2 [facility] HospitalMonocytes # (Auto)2018-12-14 06:07:00* Test Item Value Reference Range Interpretation Comments Monocytes # (Auto) (test code = 742-7) 0.9 0.2-0.8 H [facility] HospitalEosinophils # (Auto)2018-12-14 06:07:00* Test Item Value Reference Range Interpretation Comments Eosinophils # (Auto) (test code = 711-2) 0.0 0.0-0.4 [facility] HospitalBasophils # (Auto)2018-12-14 06:07:00* Test Item Value Reference Range Interpretation Comments Basophils # (Auto) (test code = 704-7) 0.1 0.0-0.1 [facility] HospitalAbsolute Immature Granulocyte (auto 2018-12-14 06:07:00* Test Item Value Reference Range Interpretation Comments Absolute Immature Granulocyte (auto (renee t code = Absolute Immature Granulocyte (auto) 0.07 0-0.1 [facility] HospitalTotal Hgmveoyig3745-92-64 06:26:00* Test Item Value Reference Range Interpretation Comments Total Bilirubin (test code = 1975-2) 0.6 0.2-1.2 [facility] HospitalAspartate Amino Transf (AST/SGOT) 2018-12-13 06:26:00* Test Item Value Reference Range Interpretation Comments Aspartate Amino Transf (AST/SGOT) (test code = Aspartate Amino Transf (AST/SGOT)) 8 5-34 [facility] HospitalAlanine Aminotransferase (ALT/SGPT) 2018-12-13 06:26:00* Test Item Value Reference Range Interpretation Comments Alanine Aminotransferase (ALT/SGPT) (test code = 1742-6) 16 0-55 [facility] HospitalTotal Ibpailu4330-10-02 06:26:00* Test Item Value Reference Range Interpretation Comments Total Protein (test code = 2885-2) 5.4 6.5-8.1 L [facility] HospitalAlbumin2019-09-26 06:26:00* Test Item Value Reference Range Interpretation Comments Albumin (test code = 1751-7) 2.9 3.5-5.0 L [facility] HospitalGlobulin2019-09-26 06:26:00* Test Item Value Reference Range Interpretation Comments Globulin (test code = 33179-1) 2.5 2.3-3.5 [facility] HospitalAlbumin/Globulin Uqzup1710-00-78 06:26:00 * Test Item Value Reference Range Interpretation Comments Albumin/Globulin Ratio (test code = 1759-0) 1.2 0.8-2.0 [facility] HospitalAlkaline Yrgxefygopf4645-01-80 06:26:00* Test Item Value Reference Range Interpretation Comments Alkaline Phosphatase (test code = 6768-6) 58 40-150 [facility] HospitalCHEST 2 EYFGK4272-48-79 13:12:00 [facility] [address] [place] [address] Patient Name: DONNA SOMMERS MR #: [id number] : 1950 Age/Sex: 68/F Req #: [id number] Adm Physician: Ordered by: TALON TSANG MD Report #: [id number] Location: OR Room/Bed: Procedure: [id number] DX/ CHEST 2 VIEWS Exam Date: 12/10/18 [...] tronically Signed By: JUAN FLORES MD on 12/10/18 1314 Transcribed By: OSMIN on 12/10/18 1314 COPY TO: TALON TSANG MD Activated Partial Thromboplast Jdoc3251-06-12 12:40:00* Test Item Value Reference Range Interpretation Comments Activated Partial Thromboplast Time (test code = 09465-3) 18.3 23.8-35.5 L [facility] HospitalProthrombin Opnj8671-63-26 12:39:00* Test Item Value Reference Range Interpretation Comments Prothrombin Time (test code = 5902-2) 11.9 11.9-14.5 [facility] Time International Ratio 2018-12-10 12:39:00* Test Item Value Reference Range Interpretation Comments Prothromb Time International Ratio (test code = 6301-6) 0.83 Oral Anticoagulant Therapy INR Values:1. Low Intensity Therapy 1.5 - 2.02 . Moderate Intensity Therapy 2.0 - 3.03. High Intensity Therapy(1) 2.5 - 3. 54. High Intensity Therapy(2) 3.0 - 4.05. Panic Value INR > 5.0 [facility]Ar[facility] Blood [id number] 12:38:00* Test Item Value Reference Range Interpretation Comments Arterial Blood pH (test code = 2744-1) 7.42 7.31-7.41 H [facility] Partial Pressure CO2 2018-12-10 12:38:00* Test Item Value Reference Range Interpretation Comments Arterial Blood Partial Pressure CO2 (test code = 2018-10) 43 41-51 [facility] Partial Pressure O2 2018-12-10 12:38:00* Test Item Value Reference Range Interpretation Comments Arterial Blood Partial Pressure O2 (test code = 2018-10) 70 80-105 L [facility] [id number] 12:38:00* Test Item Value Reference Range Interpretation Comments Arterial Blood HCO3 (test code = 1960-4) 28 23-28 [facility] Base [id number] 12:38:00* Test Item Value Reference Range Interpretation Comments Arterial Blood Base Excess (test code = 1925-7) 3.0 -2-3 [facility] Oxygen Saturation 2018-12-10 12:38:00* Test Item Value Reference Range Interpretation Comments Arterial Blood Oxygen Saturation (test code = 2708-6) 94.0 95-98 L [facility] HospitalFiO22019-09-23 12:38:00* Test Item Value Reference Range Interpretation Comments FiO2 (test code = FiO2) 21 ROOM AIROUT PATIENTCHI [facility] 2017-10-24 12:51:00 RUN DATE: 10/24/17 [facility] PAGE 1 RUN TIME: 1251 Specimen Inqui ry RUN USER: INTERFACE PATIENT: DONNA SOMMERS ACCT #: [id number] LOC: PAZ U #: [id number] AGE/SX: 67/F ROOM: RE10/23/17REG DR: Gracy Martinez MD : 48 BED: DIS: STATUS: [facility] TLOC: SPEC #: [id number] RECD: 10/23/17 STATUS: LULI REQ #: [id number] SHARRI: 10/23/17 DR: Laisha Osborne MD ENTERED: [...] MICROCALCIFICATI ON NEGATIVE FOR MALIGNANCY SHRUTHI D 75748 MACROSCOPIC The specimen is received in formalin, labeled with the patient's name and iden tified as "L breast US bx". It consists of multiple yellow-white needle core biopsy tissue measuring 1.7 X 1.5 X 0.2 cm in aggregate. The tissue is strain ed through a biopsy bag and entirely submitted in a single cassette for micros copic evaluation. GROSS PERFORMED AT [facility] [address], [place] [address] CONTINUED ON NEXT PAGE RUN DATE: 10/24/17 [facility] PAGE 2 RUN TIME: 1251 Specimen Inquiry RUN USER: INTERFACE SPEC #: [id number] PATIENT: DONNA SOMMERS #[id number] (Continued)---- -------- MACROSCOPIC (Continued) [phone])[phone] MICROSCOPIC MICROSCOPIC PERFORMED AT [facility] All of the stains, including any controls performed, stain appropriately. [place] [facility] [address] [facility] [place] [address] [phone])[phone] -- Signed SIGNATURE ON FILE Laurence Singh 10/24/17 1251 END OF REPORT CHEST 2 VIEWS [place] [address] Patient Name: DONNA SOMMERS MR #: [id number] : 1950 Age/Sex: 66/F Req #: [id number] Adm Physician: GRACY MARTINEZ MD Ordered by: GRACY MARTINEZ MD Report #: [id number] Location: [facility] Room/Bed: [place] [address] Procedure: 1110- 0060 DX/CHEST 2 VIEWS Exam [...]
--- NOTE | 2019-11-25 23:58 | Emergency Department Note ---
History of Present Illnes History of Present Illness Chief Complaint: Back Pain History of Present Illness This is a 69 year old female PRESENTS WITH C/O RIGHT UPPER ABD PAIN FOR PAST 4 DAYS, SEEN HERE FOR SAME 3 DAYS AGO HAD WORKUP INCLUDING LABS AND CT ABD/PELVIS, NO CAUSE OF PAIN FOUND. DENIES N/V/.D . Arrival Mode: [facility] Onset (how long ago): day(s) (4) Location: RIGHT UPPER ABD Quality: PAIN Radiation: Reports non-radiation Severity: moderate Onset quality: sudden Duration (how long): day(s) (3) Timing of current episode: constant Progression: unchanged Chronicity: new Context: Denies recent illness, Denies recent surgery, Denies trauma/injury Relieving factors: none Exacerbating factors: movement Associated symptoms: Reports denies other symptoms Past Medical/Family History Physician Review I have reviewed the patient's past medical and family history. Any updates have been documented here. Past Medical History Recent Fever: No Clinical Suspicion of Infectio: No New/Unexplained Change in Ment: No Past Medical History: Hypertension, COPD, Cancer Other Medical History: breast CA, kidney cancer, sleep apNEA, Past Surgical History: Hysterectomy, Hernia Repair Other Surgery: NEPHRECTOMY Social History Smoking Cessation: Never Smoker Alcohol Use: None Any Illegal Drug Use: No Family History Family history of heart diseas: No Other Last Tetanus: UTD Review of Systems Review of Systems Constitutional: Reports no symptoms EENTM: Reports no symptoms Cardiovascular: Reports no symptoms Respiratory: Reports no symptoms Gastrointestinal: Reports as per HPI Genitourinary: Reports no symptoms Musculoskeletal: Reports no symptoms Integumentary: Reports no symptoms Neurological: Reports no symptoms Psychological: Reports no symptoms Endocrine: Reports no symptoms Hematological/Lymphatic: Reports no symptoms Physical Exam Related Data Allergies: Coded Allergies: aspirin (Verified Allergy, Unknown, 12/10/18) oxycodone (Verified Allergy, Unknown, 12/10/18) Uncoded Allergies: PAPER TAPE (Allergy, Unknown, 01/27/17) Triage Vital Signs Vital Signs Date Time Temp Pulse Resp B/P (MAP) Pulse Ox O2 Delivery O2 Flow Rate FiO2 11/25/19 23:07 98.4 72 20 160/104 93 Room Air Vital signs reviewed: Yes Physical Exam CONSTITUTIONAL Constitutional: Present well-developed, Present well-nourished, Present distressed (MILD) HENT HENT: Present normocephalic, Present atraumatic, Present oropharynx clear/moist, Present nose normal HENT L/R: Present left ext ear normal, Present right ext ear normal EYES Eyes: Reports PERRL, Reports conjunctivae normal NECK Neck: Present ROM normal PULMONARY Pulmonary: Present effort normal, Present breath sounds normal CARDIOVASCULAR Cardiovascular: Present regular rhythm, Present heart sounds normal, Present capillary refill normal, Present normal rate GASTROINTESTINAL Abdominal: Present soft, Present bowel sounds normal, Present tender (RIGHT UPPER ABD); Absent distension, Absent guarding, Absent mass, Absent rebound, Absent hernia GENITOURINARY Genitourinary: Present exam deferred SKIN Skin: Present warm, Present dry MUSCULOSKELETAL Musculoskeletal: Present ROM normal NEUROLOGICAL Neurological: Present alert, Present oriented x 3, Present no gross motor or sensory deficits PSYCHOLOGICAL Psychological: Present mood/affect normal, Present judgement normal Results Laboratory Laboratory Laboratory Tests Test 11/26/19 00:45 11/26/19 00:10 Urine Color Dorys (YELLOW) Urine Clarity Sl cloudy (CLEAR) Urine pH 6 (5 - 7) Urine Specific [place] 1.010 (1.010-1.025) Urine Protein Negative (NEGATIVE) Urine Glucose (UA) Negative (NEGATIVE) Urine Ketones Negative (NEGATIVE) Urine Blood Trace (NEGATIVE) Urine Nitrite Negative (NEGATIVE) Urine Bilirubin Moderate (NEGATIVE) Urine Urobilinogen 2 mg/dL (0.2 - 1) Urine Leukocyte Esterase Negative (NEGATIVE) White Blood Count 10.75 x10e3/uL (4.8-10.8) Red Blood Count 5.31 x10e6/uL (3.6-5.1) Hemoglobin 15.3 g/dL (12.0-16.0) Hematocrit 47.9 % (34.2-44.1) Mean Corpuscular Volume 90.2 fL (81-99) Mean Corpuscular Hemoglobin 28.8 pg (28-32) Mean Corpuscular Hemoglobin Concent 31.9 g/dL (31-35) Red Cell Distribution Width 14.3 % (11.7-14.4) Platelet Count 210 x10e3/uL (140-360) Neutrophils (%) (Auto) 79.5 % (38.7-80.0) Lymphocytes (%) (Auto) 12.4 % (18.0-39.1) Monocytes (%) (Auto) 5.4 % (4.4-11.3) Eosinophils (%) (Auto) 1.6 % (0.0-6.0) Basophils (%) (Auto) 0.7 % (0.0-1.0) Neutrophils # (Auto) 8.6 (2.1-6.9) Lymphocytes # (Auto) 1.3 (1.0-3.2) Monocytes # (Auto) 0.6 (0.2-0.8) Eosinophils # (Auto) 0.2 (0.0-0.4) Basophils # (Auto) 0.1 (0.0-0.1) Absolute Immature Granulocyte (auto 0.04 x10e3/uL (0-0.1) Sodium Level 137 mmol/L (136-145) Potassium Level 3.8 mmol/L (3.5-5.1) Chloride Level 99 mmol/L (98-107) Carbon Dioxide Level 27 mmol/L (22-29) Anion Gap 14.8 mmol/L (8-16) Blood Urea Nitrogen 10 mg/dL (7-26) Creatinine 1.19 mg/dL (0.57-1.11) Estimat Glomerular Filtration Rate 45 ML/MIN (60-) BUN/Creatinine Ratio 8 (6-25) Glucose Level 131 mg/dL (74-118) Calcium Level 10.1 mg/dL (8.4-10.2) Total Bilirubin 5.1 mg/dL (0.2-1.2) Aspartate Amino Transf (AST/SGOT) 228 IU/L (5-34) Alanine Aminotransferase (ALT/SGPT) 526 IU/L (0-55) Alkaline Phosphatase 290 IU/L (40-150) Creatine Kinase 43 IU/L (29-168) Creatine Kinase MB 1.10 ng/mL (0-5.0) Troponin I 0.009 ng/mL (0-0.300) Total Protein 7.3 g/dL (6.5-8.1) Albumin 4.4 g/dL (3.5-5.0) Globulin 2.9 g/dL (2.3-3.5) Albumin/Globulin Ratio 1.5 (0.8-2.0) Amylase Level 46 U/L (25-125) Lipase 34 U/L (8-78) Lab results reviewed: Yes Imaging Imaging results reviewed: Yes Impressions EXAM: Chest x-ray 1 view and abdominal x-ray 1 view INDICATION: Abdominal pain COMPARISON: None FINDINGS: Hyperexpanded lung. Pulmonary vascular congestion. Coarse opacities in the mid to lower lungs. No pleural effusion or pneumothorax. Mild cardiomegaly. Cholecystectomy clips. Phleboliths. Surgical clips in the right lower quadrant. Degenerative changes. IMPRESSION: Mild cardiomegaly. Coarse opacities in the mid to lower lungs may be due to scarring/fibrotic changes although superimposed infection is possible. Signed by: Jose Lynn DO on 11/26/2019 12:39 AM Dictated By: JOSE LYNN DO Transcribed By: OSMIN on 11/26/1938 COPY TO: SHANEKA INFANTE MD~ Procedures 12 Lead ECG Interpretation ECG Interpretation : ECG: ECG 1 [employer]: Interpreted by ED physician Date: Nov 26, 2019 Time: 00:17 Rhythm: sinus rhythm Rate: normal BPM: 67 QRS axis: normal ST segments normal: Yes T wave inversion: V1, V2 Q waves: V3 Clinical Impression: abnormal ECG Assessment & Plan Medical Decision Making MDM PT WITH RIGHT UPPER ABD PAIN CBC, CMP, AMYLASE, LIPASE, UA, ACUTE ABD SERIES, EKG, CARDIAC ENZYMES ORDERED TO EVAL FOR PANCREATITIS, MYOCARDIAL INFARCTION, UTI, ELEVATED LFT'S, ELECTROLYTE ABNORMALITY, UTI PROTONIX 40 MG IV ORDERED TYLENOL WITH CODEINE ELIXER 10 CC PO ORDERED I SPOKE WITH DR NGO ADMIT INPATIENT, ORDER MRCP TO EVAL FOR RETAINED STONE IN COMMON BILE DUCT Assessment & Plan Final Impression: (1) Elevated LFTs (2) Elevated bilirubin (3) Abdominal pain Depart Disposition: ADMITTED Last Vital Signs Date Time Temp Pulse Resp B/P (MAP) Pulse Ox O2 Delivery O2 Flow Rate FiO2 11/25/19 23:07 98.4 72 20 160/104 93 Room Air Home Meds Reported Medications Acetaminophen With Codeine (TYLENOL WITH CODEINE #3 TABLET) 1 Each Tablet, 300 MG PO PRN, TAB TAKE ONE TABLET EVERY 4 HOURS NEEDED 12/14/18 Hydralazine Hcl (HYDRALAZINE HCL) 25 Mg Tab, 25 MG PO HS, TAB 12/10/18 Hydralazine Hcl (HYDRALAZINE HCL) 50 Mg Tablet, 50 MG PO QAM 12/10/18 Isosorbide Mononitrate (ISOSORBIDE MONONITRATE) 20 Mg Tablet, 30 MG PO DAILY, #30 TAB 12/10/18 Cyclobenzaprine Hcl (CYCLOBENZAPRINE HCL) 10 Mg Tablet, 10 MG PO DAILY PRN for MUSCLE SPASMS, TAB 12/10/18 Prednisone (PREDNISONE) 10 Mg Tab, 10 MG PO HS, TAB 12/10/18 Prednisone (PREDNISONE) 20 Mg Tab, 20 MG PO DAILY for 10 Days, TAB 01/29/17 Levothyroxine Sodium (LEVOTHYROXINE SODIUM) 125 Mcg Tablet, 137 MCG PO DAILY 01/27/17 Albuterol Sulfate (ALBUTEROL SULFATE) 0.63 Mg/3 Ml Vial.neb, 0.63 MG IH Q6H PRN for SHORTNESS OF BREATH 11/09/15 Budesonide/Formoterol Fumarate (SYMBICORT 160-4.5 MCG INHALER) 10.2 Gm Hfa.aer.ad, 160 MG INH BID PRN for SHORTNESS OF BREATH 01/16/13 Medications in the ED Acetaminophen/ Codeine Phosphate 10 ml ONCE ONCE PO ; Start 11/25/19 at 23:30; Stop 11/25/19 at 23:33; Status DC Pantoprazole Sodium 40 mg NOW STAT IV ; Start 11/25/19 at 23:25; Stop 11/25/19 at 23:31; Status DC Ondansetron HCl 4 mg NOW STAT IV ; Start 11/25/19 at 23:25; Stop 11/25/19 at 23:31; Status DC SHANEKA INFANTE MD Nov 25, 2019 23:57
[2019-11-26] VITALS (10 sets, daily range): BP systolic 116–169; BP diastolic 69–92
[2019-11-26 00:21] LABS: BASOPHILS # (AUTO) 0.1 (0.0-0.1); BASOPHILS % 0.7 % (0.0-1.0); EOSINOPHILS # (AUTO) 0.2 (0.0-0.4); EOSINOPHILS % 1.6 % (0.0-6.0); HEMATOCRIT 47.9 % (34.2-44.1); HEMOGLOBIN 15.3 g/dL (12.0-16.0); LYMPHOCYTES # (AUTO) 1.3 (1.0-3.2); LYMPHOCYTES % 12.4 % (18.0-39.1); MEAN CORPUSCULAR HEMOGLOBIN 28.8 pg (28-32); MEAN CORPUSCULAR HGB CONC 31.9 g/dL (31-35); MEAN CORPUSCULAR VOLUME 90.2 fL (81-99); MONOCYTES # (AUTO) 0.6 (0.2-0.8); MONOCYTES % 5.4 % (4.4-11.3); NEUTROPHILS # (AUTO) 8.6 (2.1-6.9); NEUTROPHILS % 79.5 % (38.7-80.0); PLATELET COUNT 210 x10e3/uL (140-360); RED BLOOD COUNT 5.31 x10e6/uL (3.6-5.1); RED CELL DISTRIBUTION WIDTH 14.3 % (11.7-14.4)
[2019-11-26 00:39] LABS: AMYLASE 46 U/L (25-125); LIPASE 34 U/L (8-78)
--- NOTE | 2019-11-26 00:43 | Diagnostic Imaging Report ---
EXAM: Chest x-ray 1 view and abdominal x-ray 1 view INDICATION: Abdominal pain COMPARISON: None FINDINGS: Hyperexpanded lung. Pulmonary vascular congestion. Coarse opacities in the mid to lower lungs. No pleural effusion or pneumothorax. Mild cardiomegaly. Cholecystectomy clips. Phleboliths. Surgical clips in the right lower quadrant. Degenerative changes. IMPRESSION: Mild cardiomegaly. Coarse opacities in the mid to lower lungs may be due to scarring/fibrotic changes although superimposed infection is possible. Signed by: Jose Lynn DO on 11/26/2019 12:39 AM
[2019-11-26 00:45] LABS: ALBUMIN 4.4 g/dL (3.5-5.0); ALBUMIN/GLOBULIN RATIO 1.5 (0.8-2.0); ANION GAP 14.8 mmol/L (8-16); CALCIUM 10.1 mg/dL (8.4-10.2); CREATININE, SERUM 1.19 mg/dL (0.57-1.11); POTASSIUM 3.8 mmol/L (3.5-5.1)
[2019-11-26 00:46] LABS: CREATINE KINASE MB 1.1 ng/mL (0-5.0)
[2019-11-26 00:59] LABS: BILIRUBIN,URINE MODERATE (NEGATIVE); CLARITY,URINE SL CLOUDY (CLEAR); COLOR,URINE AMBER (YELLOW); KETONES,URINE NEGATIVE (NEGATIVE); LEUKOCYTE ESTERASE ,URINE NEGATIVE (NEGATIVE); NITRITE,URINE NEGATIVE (NEGATIVE); PROTEIN,URINE DIPSTICK NEGATIVE (NEGATIVE); URINE UROBILINOGEN 2 mg/dL (0.2 - 1)
[2019-11-26] MEDS ORDERED: MORPHINE SULFATE 2 MG/ML SYR 1ML IV PRN (01:00)
[2019-11-26] MEDS ORDERED: ONDANSETRON HCL INJ 2MG/ML 2ML 2 MG/ML VIAL IV PRN (01:00)
[2019-11-26 01:06] LABS: BACTERIA,URINE FEW /HPF; EPITHELIAL CELLS,URINE MODERATE /LPF; WBC,URINE (MAN) 0-5 /HPF (0-5)
--- OUTSIDE RECORDS SUMMARY | 2019-11-26 01:09 | XMS REPORT | Continuity of Care Document ---
Author Author [facility] t Organization [facility] Address [address] [place] [address] Phone Unavailable Care Team Providers Care Research Lab Assistant Name Role Phone MAAME ACOSTA, MD PIKE PCP Rasta INFANTE Attphys Unavailable YOSEF, JED Attphys Unavailable TALON TSANG Attphys Unavailable MARTINEZ, GRACY Attphys Unavailable MAAME, GRACY Admphys Unavailable Payers Payer Name Policy Type Policy Number Effective Date Expiration Date S [facility] [id number] 2019 00:00:00 [facility] [id number] 2014 00:00 :00 [facility] Care Improvement Plus [id number] 2017 00:00:00 [facility] Problems Condition Name Condition Details Condition Category Status Onset Date Resolution Date Last Treatment Date Treating Clinician Comments Source Pneumonia Pneumonia Problem Active 2015-11-09 00:00:00 [facility] Failure of outpatient treatment Problem Active 2015-11-09 00:00:00 [facility] Thrombocytopenia Thrombocytopenia Problem Active [facility] Allergies, Adverse Reactions, Alerts Allergy Name Allergy Type Status Severity Reaction(s) Onset Date Inacti ve Date Treating Clinician Comments Source PAPER TAPE DA Active U 2019-04-13 00:00:00 [facility] Oxycodone Allergy to substance Active 2018-12-10 00:00:00 [facility] Aspirin Allergy to substance Active 2018-12-10 00:00:00 [facility] oxycodone DA Active U 2017-09-18 00:00:00 [facility] aspirin DA Active U 2017-09-18 00:00:00 [facility] PAPER TAPE Allergy to substance Active 2017-01-27 00:00:00 [facility] Family History Family Member Diagnosis Comments Start Date Stop Date Source 33 FATHER Family history of chronic obstructive pulmonary disease [facility] 32 MOTHER Family history of chronic obstructive pulmonary disease [facility] 32 MOTHER Family history of emphysema [facility] 09 BROTHER Family history of chronic obstructive pulmonary disease [facility] 09 BROTHER Family history of congestive heart failure [facility] 09 SISTER Family history of chronic obstructive pulmonary disease [facility] Social History Social Habit Start Date Stop Date Quantity Comments Source Sex Assigned At 1950 00:00:00 1950 00:00:00 Female [facility] Medications Ordered Medication Name Filled Medication Name Start Date Stop Da te Current Medication? Ordering Clinician Indication Dosage Frequency Signature (SIG) Comments Components Source Acetaminophen With Codeine (Tylenol With Codeine #3 Ta blet) 1 Each TABLET Acetaminophen With Codeine (Tylenol With Codeine #3 Tablet) 1 Each TABLET Yes 300 As Needed [facility] Albuterol Sulfate Albuterol Sulfate Yes .6 3 Every 6 Hours as needed for Shortness Of Breath [facility] Budesonide/Formoterol Fumarate (Symbicor t 160-4.5 Mcg Inhaler) 10.2 Gm HFA.AER.AD Budesonide/Formoterol Fumarate (Symbicor t 160-4.5 Mcg Inhaler) 10.2 Gm HFA.AER.AD Yes 160 Twice A Day as ne eded for Shortness Of Breath [facility] Cyclobenzaprine Hcl Cyclobenzaprine Hcl Yes 10 Daily as needed for Muscle Spasms [facility] Hydralazine Hcl Hydralazine Hcl Yes 25 Bedtime [facility] Hydralazine Hcl Hydralazine Hcl Yes 50 Every Mo rning [facility] Isosorbide Mononitrate Isosorbide Mononitrate Yes 30 Daily [facility] Levothyroxine Sodium Levothyroxine Sodium Yes 137 Daily [facility] Prednisone Prednisone Yes 10 Bedtime [facility] Prednisone Prednisone Yes 20 Daily [facility] Amlodipine Besylate Amlodipine Besylate 2018-12-10 00:00:00 No 5 Daily [facility] Amoxicillin/Potassium Clav (Augmentin 875-125 Tablet) 1 Each TABLET Amoxicillin/Potassium Clav (Augmentin 875-125 Tablet) 1 Each TABLET 2018-12-10 00:00:00 No 875 Daily [facility] Cyanocobalamin (Vitamin B-12) (B-12) 1,000 Mcg TABLET. ER Cyanocobalamin (Vitamin B-12) (B-12) 1,000 Mcg TABLET.ER 2018-12-10 00:00:00 No Daily [facility] Furosemide Furosemide 2018-12-10 00:00:00 No 20 Gemma ly [facility] Pantoprazole Sodium (Protonix) 40 Mg TABLET. Pantopr azole Sodium (Protonix) 40 Mg TABLET. 2018-12-10 00:00:00 No 40 Daily [facility] Potassium Bicarbonate/Cit Ac (Potassium 25 Meq Tablet Eff) 25 Meq TABLET.EFF Potassium Bicarbonate/Cit Ac (Potassium 25 Meq Tablet Eff) 25 Meq TABLET.EFF 2018-12-10 00:00:00 No 8 Daily [facility] Tizanidine Hcl Tizanidine Hcl 2018-12-10 00:00:00 No 2 Daily [facility] Levalbuterol Hcl (Xopenex) 0.63 Mg/3 Ml VIAL.NEB Leval buterol Hcl (Xopenex) 0.63 Mg/3 Ml VIAL.NEB 2017-01-27 00:00:00 No Prn Q 4 HOURS [facility] Levothyroxine Sodium (Tirosint) 100 Mcg CAPSULE Levoth yroxine Sodium (Tirosint) 100 Mcg CAPSULE 2017-01-27 00:00:00 No 75 Daily [facility] Mometasone Furoate (Nasonex) 17 Gm SPRAY Mometasone Fu roate (Nasonex) 17 Gm SPRAY 2017-01-27 00:00:00 No Daily [facility] Amlodipine Besylate Amlodipine Besylate 2015-11-09 00:00:00 No 5 Daily [facility] Azithromycin (Z-Peter) 250 Mg TABLET Azithromycin (Z-Peter) 250 Mg T ABLET 2015-11-09 00:00:00 No 250 Daily [facility] Meclizine Hcl (Motion Sickness Relief Ii) 25 Mg TABLET Meclizine Hcl (Motion Sickness Relief Ii) 25 Mg TABLET 2015-11-09 00:00:00 No 25 Prn [facility] Methylprednisolone (Medrol Dose Pack) 4 Mg/Dose Pack T AB Methylprednisolone (Medrol Dose Pack) 4 Mg/Dose Pack TAB 2015-11-09 00:00:00 No Daily [facility] Prednisone Prednisone 2015-11-09 00:00:00 No 10 Gemma ly [facility] Ranitidine Hcl Ranitidine Hcl 2015-11-09 00:00:00 No 150 Daily [facility] Vital Signs Vital Name Observation Time Observation Value Comments Source Weight 2019-11-21 23:08:00 272 [lb_av] [facility] BMI (Body Mass Index) 2019-11-21 23:08:00 46.7 kg/m2 [facility] Procedures Procedure Date / Time Performed Performing Clinician Flo jason CT of abdomen and pelvis without contrast 2019-11-22 00:00:00 [facility] Plan of Care Planned Activity Planned Date Details Comments Source Instructions Abdominal Pain - Adult [facility] Encounters Start Date/Time End Date/Time Encounter Type Admission Type Attendi [facility] Emergency Department Facility Care Department Encounter ID Source 2019-04-13 17:47:00 Inpatient U [facility] [id number] [facility] 2019-02-21 20:07:00 Inpatient U [facility] [id number] [facility] 2018-12-12 14:03:00 2018-12-14 15:40:00 Discharged Inpatient 3 TALON TSANG [facility] [id number] [facility] 2018-12-10 11:59:00 2018-12-10 11:59:00 Registered Clinic [facility] [id number] [facility] Results Test Description Test Time Test Comments Results Result Comments Source ABDOMEN ACUTE SERIES W/PA CXR 2019-11-26 00:36:00 [place] [address] Patient Name: DONNA SOMMERS MR #: [id number] : 1950 Age/Sex: 69/F Req #: [id number] Adm Physician: Ordered by: SHANEKA INFANTE MD Report #: [id number] Location: ER Room/Bed: Procedure: [id number] DX/ABDOMEN ACUTE SERIES W/PA CXR Exam Date: 11/25/19 Exam Time: 2354 REPORT STATUS: Signed EXAM: Chest x-ray 1 view and abdominal x-ray 1 view INDICATION: Abdominal pain COMPARISON: None FINDINGS: Hyperexpanded lung. Pulmonary vascular congestion. Coarse opacities in the mid to lower lungs. No pleural effusion or pneumothorax. Mild cardiomegaly. Cholecystectomy clips. Phleboliths. Surgical clips in the right lower quadrant. Degenerative changes. IMPRESSION: Mild cardiomegaly. Coarse opacities in the mid to lower lungs may be due to scarring/fibrotic changes although superimposed infection is possible. Signed by: Jose Inman DO on 11/26/2019 12:39 AM Dictated By: JOSE INMAN DO Transcribed By: OSMIN on 11/26/1938 COPY TO: SHANEKA INFANTE MD CT ABDOMEN/PELVIS WO 2019-11-22 01:28:00 [place] [address] Patient Name: DONNA SOMMERS MR #: [id number] : 1950 Age/Sex: 69/F Req #: [id number] Adm Physician: Ordered by: JED NAVAS DO Report #: [id number] Location: ER Room/Bed: Procedure: [id number] CT/CT ABDOMEN/PELVIS WO Exam Date: 11/22/19 Exam [...] Count (test code = 6690-2) 11.56 4.8-10.8 [facility] automated count (number/volume)2019-11-21 23:45:00* Test Item Value Reference Range Interpretation Comments Red Blood Count (test code = 789-8) 4.80 3.6-5.1 [facility] hemoglobin measurement (moles/volume)2019-11-21 23:45:00* Test Item Value Reference Range Interpretation Comments Hemoglobin (test code = 04872-6) 14.0 12.0-16.0 [facility] CenterAutomated blood hematocrit (volume fraction)2019-11-21 23:45:00* Test Item Value Reference Range Interpretation Comments Hematocrit (test code = 4544-3) 43.9 34.2-44.1 [facility] CenterAutomated erythrocyte mean corpuscular wdqrjp5494-85-94 23:45:00* Test Item Value Reference Range Interpretation Comments Mean Corpuscular Volume (test code = 787-2) 91.5 81-99 [facility] CenterAutomated erythrocyte mean corpuscular hemoglobin (mass per erythrocyte)2019-11-21 23:45:00* Test Item Value Reference Range Interpretation Comments Mean Corpuscular Hemoglobin (test code = 785-6) 29.2 28-32 [facility] CenterAutomated erythrocyte mean corpuscular hemoglobin concentration measurement (mass/volume)2019-11-21 23:45:00* Test Item Value Reference Range Interpretation Comments Mean Corpuscular Hemoglobin Concent (test code = 786-4) 31.9 31-35 [facility] CenterRDW TyhRi-Vgr9715-59-03 23:45:00* Test Item Value Reference Range Interpretation Comments Red Cell Distribution Width (test code = 98920-2) 14.0 11.7 -14.4 [facility] CenterAutomated blood platelet count (count/volume)2019-11-21 23:45:00* Test Item Value Reference Range Interpretation Comments Platelet Count (test code = 777-3) 222 140-360 [facility] CenterAutomated blood segmented neutrophil count as percentage of total fzvxmhdpvx7152-81-63 23:45:00* Test Item Value Reference Range Interpretation Comments Neutrophils (%) (Auto) (test code = 13457-8) 82.7 38.7-80.0 [facility] CenterAutomated blood lymphocyte count as percentage ot total zilnlfazvl7631-05-41 23:45:00* Test Item Value Reference Range Interpretation Comments Lymphocytes (%) (Auto) (test code = 736-9) 10.6 18.0-39.1 [facility] CenterAutomated blood monocyte count as percentage of total tmolfgpejl6965-63-32 23:45:00* Test Item Value Reference Range Interpretation Comments Monocytes (%) (Auto) (test code = 5905-5) 4.3 4.4-11.3 [facility] CenterAutomated blood eosinophil count as percentage of total iflgfustlt0196-04-34 23:45:00* Test Item Value Reference Range Interpretation Comments Eosinophils (%) (Auto) (test code = 713-8) 1.2 0.0-6.0 [facility] CenterAutomated blood basophil count as percentage of total kmotwcbief7430-25-86 23:45:00* Test Item Value Reference Range Interpretation Comments Basophils (%) (Auto) (test code = 706-2) 0.8 0.0-1.0 [facility] CenterFluoroscopic procedure less than one hour xljikbcn4137-46-85 23:45:00* Test Item Value Reference Range Interpretation Comments IM GRANULOCYTES % (test code = IM GRANULOCYTES %) 0.4 0.0- 1.0 [facility] CenterAutomated blood neutrophil count 2019-11-21 23:45:00* Test Item Value Reference Range Interpretation Comments Neutrophils # (Auto) (test code = 751-8) 9.6 2.1-6.9 [facility] CenterBlood lymphocytes count (number/volume) 2019-11-21 23:45:00* Test Item Value Reference Range Interpretation Comments Lymphocytes # (Auto) (test code = 24421-6) 1.2 1.0-3.2 [facility] CenterBl[facility] monocytes automated count (number/volume)2019-11-21 23:45:00* Test Item Value Reference Range Interpretation Comments Monocytes # (Auto) (test code = 742-7) 0.5 0.2-0.8 [facility] CenterAutomated blood eosinophil count 2019-11-21 23:45:00* Test Item Value Reference Range Interpretation Comments Eosinophils # (Auto) (test code = 711-2) 0.1 0.0-0.4 [facility] CenterAutomated blood basophil count (count/volume)2019-11-21 23:45:00* Test Item Value Reference Range Interpretation Comments Basophils # (Auto) (test code = 704-7) 0.1 0.0-0.1 [facility] CenterFluoroscopic procedure less than one hour iwvqlutr4096-29-76 23:45:00* Test Item Value Reference Range Interpretation Comments Absolute Immature Granulocyte (auto (renee t code = Absolute Immature Granulocyte (auto) 0.05 0-0.1 [facility] sodium measurement (moles/volume)2019-11-21 23:45:00* Test Item Value Reference Range Interpretation Comments Sodium Level (test code = 2951-2) 139 136-145 [facility] potassium measurement (moles/volume)2019-11-21 23:45:00* Test Item Value Reference Range Interpretation Comments Potassium Level (test code = 2823-3) 3.7 3.5-5.1 [facility] chloride measurement (moles/volume)2019-11-21 23:45:00* Test Item Value Reference Range Interpretation Comments Chloride Level (test code = 2075-0) 104 98-107 [facility] or plasma carbon dioxide, total measurement (moles/volume)2019-11-21 23:45:00* Test Item Value Reference Range Interpretation Comments Carbon Dioxide Level (test code = 2028-9) 23 22-29 [facility] anion zfu2822-76-01 23:45:00* Test Item Value Reference Range Interpretation Comments Anion Gap (test code = 59211-8) 15.7 8-16 [facility] urea nitrogen measurement (mass/volume)2019-11-21 23:45:00* Test Item Value Reference Range Interpretation Comments Blood Urea Nitrogen (test code = 3094-0) 12 7-26 [facility] or plasma creatinine measurement (mass/volume)2019-11-21 23:45:00* Test Item Value Reference Range Interpretation Comments Creatinine (test code = 2160-0) 1.32 0.57-1.11 [facility]ere[facility] or plasma urea nitrogen/creatinine mass uzipj9537-91-39 23:45:00* Test Item Value Reference Range Interpretation Comments BUN/Creatinine Ratio (test code = 3097-3) 9 6-25 [facility] CenterEstimated glomerular filtration rate (GFR) xxhwzbvwftfrf2874-79-91 23:45:00* Test Item Value Reference Range Interpretation Comments Estimat Glomerular Filtration Rate (test code = 173243507) 40 >60 Ranges were taken from the National Kidney Disease Education Program and the [facility] Kidney Foundation literature.Reference ranges:60 or greater: Tjdaqe47-80 ( for 3 consecutive months): Chronic kidney disease 15 or less: Kidney failureMemorial Hermann Memorial City Medical CenterGlucose efmfyqqbizn4470-84-37 23:45:00* Test Item Value Reference Range Interpretation Comments Glucose Level (test code = PRA3359) 133 74-118 [facility]ere[facility] or plasma calcium measurement (mass/volume)2019-11-21 23:45:00* Test Item Value Reference Range Interpretation Comments Calcium Level (test code = 36476-7) 9.2 8.4-10.2 [facility]ere[facility] or plasma total bilirubin measurement (mass/volume)2019-11-21 23:45:00* Test Item Value Reference Range Interpretation Comments Total Bilirubin (test code = 1975-2) 0.6 0.2-1.2 [facility] CenterFluoroscopic procedure less than one hour wvsjlfko2510-25-63 23:45:00* Test Item Value Reference Range Interpretation Comments Aspartate Amino Transf (AST/SGOT) (test code = Aspartate Amino Transf (AST/SGOT)) 48 5-34 [facility]ererum or plasma alanine aminotransferase measurement (enzymatic activity/volume)2019-11-21 23:45:00* Test Item Value Reference Range Interpretation Comments Alanine Aminotransferase (ALT/SGPT) (test code = 1742-6) 26 0-55 [facility]ererum or plasma protein measurement (mass/volume)2019-11-21 23:45:00* Test Item Value Reference Range Interpretation Comments Total Protein (test code = 2885-2) 6.6 6.5-8.1 [facility]ererum or plasma albumin measurement (mass/volume)2019-11-21 23:45:00* Test Item Value Reference Range Interpretation Comments Albumin (test code = 1751-7) 4.0 3.5-5.0 [facility] CenterPlasma globulin measurement (mass/volume) 2019-11-21 23:45:00* Test Item Value Reference Range Interpretation Comments Globulin (test code = 12246-0) 2.6 2.3-3.5 [facility]ererum or plasma albumin/globulin mass zxasz6658-79-83 23:45:00* Test Item Value Reference Range Interpretation Comments Albumin/Globulin Ratio (test code = 1759-0) 1.5 0.8-2.0 [facility] Centererum or plasma alkaline phosphatase measurement (enzymatic activity/volume)2019-11-21 23:45:00* Test Item Value Reference Range Interpretation Comments Alkaline Phosphatase (test code = 6768-6) 91 40-150 [facility] CenterBNP Pvv-lSjt4872-28-03 23:45:00* Test Item Value Reference Range Interpretation Comments B-Type Natriuretic Peptide (test code = 84543-0) < 10.0 0-100 [facility]ererum or plasma creatine kinase measurement (enzymatic activity/volume)2019-11-21 23:45:00* Test Item Value Reference Range Interpretation Comments Creatine Kinase (test code = 2157-6) 39 29-168 [facility] Centererum or plasma creatine kinase MB measurement (mass/volume)2019-11-21 23:45:00* Test Item Value Reference Range Interpretation Comments Creatine Kinase MB (test code = 26298-8) 0.80 0-5.0 [facility] CenterTroponin I measurement by highly sensitive enzyme mohrwfofeff1550-24-10 23:45:00* Test Item Value Reference Range Interpretation Comments Troponin I (test code = 73686-7) < 0.001 0-0.300 [facility]ererum or plasma lipase measurement (enzymatic activity/volume)2019-11-21 23:45:00* Test Item Value Reference Range Interpretation Comments Lipase (test code = 3040-3) 23 8-78 [facility] CenterBREAST2020-08-06 13:28:00 RUN DATE: 10/24/19 [facility] - Lab PAGE 1 RUN TIME: 1329 Specimen Inqui ry RUN USER: INTERFACE PATIENT: DONNA SOMMERS ACCT #: [id number] LOC: [place] #: [id number] AGE/SX: 69/F ROOM: RE10/22/19REG DR: Gracy Martinez MD : [birth year] BED: DIS: STATUS: PRE REF TLOC: SPEC #: [id number] RECD: 10/22/19-1448 STATUS: LULI RE #: [id number] SHARRI: 10/22/19- SUBM DR: Gracy Martinez MD ENTERED: 10/22/19-1271 SP TYPE: BREAST OTHR DR: TUMOR REGISTRY ORDERED: GROSS COPIES TO: Gracy Martinez MD [address] [place], [place] [address] TUMOR REGISTRY MARKERS: I NTRADEPARTMENTAL CONSULT, MALIGNANCY [...] CONTINUED ON NEXT PAGE RUN DATE: 10/24/19 [facility] PAGE 2 RUN TIME: 1329 Specimen I nquiry RUN USER: INTERFACE SPEC #: [id number] PATIENT: MARJAN SOMMERS MICHELLE #[id number] (Continued) FINAL DIAGN OSIS (Continued) NO AREAS OF INVASION SEEN DUCTAL EPITH ELIAL HYPERPLASIA (SEE COMMENT) DMW/ D 60397G3 MACROSCOPIC Specimen (1) is received in formalin [...] x 1.3 x 0.2 cm in aggregate. Giles ink is appli ed and the tissue is submitted as (2). GROSS PERFORMED AT [facility] [address] [place] [address] (p)[phone] MICROSCOPIC All of the stains , including any controls performed, stain appropriately. MICROSCOPIC PER FORMED AT [facility] [address] [place] [address] (p)[phone] PERFORMING SITE Diagnos is performed at: [facility] [address] [place] [address] CONTINUED ON NEXT PAGE ------- -----RUN DATE: 10/24/19 [facility] PAGE 3 RUN TIME: 1329 Specimen Inquiry RUN USER: INTERFACE SPEC #: [id number] PATIENT: DONNA SOMMERS #[id number] (Continued) Signed SIGNATURE ON FILE Bridget Montgomery MD 10/24/19 1328 * * END OF REPORT [id number] 13:28:00 RUN DATE: 10/28/19 [facility] PAGE 1 RUN TIME: 1402 Specimen Inqui ry RUN USER: INTERFACE PATIENT: DONNA SOMMERS ACCT #: [id number] LOC: KATALINA U #: [id number] AGE/SX: 69/F ROOM: RE10/22/19REG DR: Gracy Martinez MD : [birth year] BED: DIS: STATUS: PRE REF TLOC: SPEC #: [id number] RECD: 10/22/19-1448 STATUS: DEVONNéstor [facility] #: [id number] SHARRI: 10/22/19- SUBM DR: Gracy Martinez MD ENTERED: 10/22/192913 SP TYPE: BREAST OTHR DR: TUMOR REGISTRY ORDERED: GROSS COPIES TO: Gracy Martinez MD [address] [place] [id number] TUMOR REGISTRY MARKERS: I NTRADEPARTMENTAL CONSULT, MALIGNANCY PROCEDURES: GROSS (10/24/19-1313) TISSUES: 1. LEFT BREAST, NOS - CBX W/CALCIFICATIONS 2. LEFT BREAST, NOS - CBX 10 O'CLOCK ADDENDUM FINDINGS Addendum #1 Entered: An Immunohistochemistry report is received from [facility] Accession#: [id number] and the interpretation is as follows: Interpretation [...] CONTINUED ON NEXT PAGE RUN DATE: 10/28/19 [facility] - [facility] PAGE 2 RUN TIME: 1402 Specimen Inquiry RUN USER: ELYSEA CE SPEC #: [id number] PATIENT: DONNA SOMMERS #[id number] (Chanel nued) ADDENDUM FINDINGS (Continued) Processing of specimen: Fixation in 10% neutral buffered formalin; paraffin embedded. Per rep ort, estimated fixation time is >6, <72h -optimal fixation time: 6 to 72 hours. Optiview DAB ER-SP 1 W[place]-clone 16 This test was developed and its performance characteristics determined by [facility]. It has not been cleared or approved [...] Electronic Signature Alvarado Frazier MD CPT Code(s): 24491(x2) The Technical and Professional components were performed at [facility], [address] , [address], [place] [address]. Addendum Signed SIGNATURE ON FILE Bridget Montgomery [...] ON NEXT PAGE ----- -------RUN DATE: 10/28/19 [facility] PAGE 3 RUN TIME: 1402 Specimen Inquiry RUN USER: INTERFACE SPEC #: [id number] PATIENT: DONNA SOMMERS #[id number] (Continued) FINAL DIAGNOSIS (Continued) DUCTAL EPITHELIAL HYPERPLASIA (SEE COMMENT) Left breast, stereotactic core biopsy without calcifications: DUCTAL C ARCINOMA IN SITU, NUCLEAR GRADE 3 NO AREAS OF INVASION SEEN DUCTAL EPITHELIAL HYPERPLASIA (SEE COMMENT) DMW/ D [id number] MACROSCOPIC Specimen (1) is received in formalin labeled with the terry nt's name, "left breast, 11:40 time in [...] x 1.3 x 0.2 cm in aggregate. Giles ink is applied and the tissue is submitted as (2). GROSS PERFORMED AT [facility] [address] [place] [address] (P)[phone] MICROSCOPIC All of the stains, including any controls performed, stain appropriately. MICROSCOP IC PERFORMED AT [facility] [address] [place] [address] (P)[phone] CONTINUED ON NEXT PAGE RUN DATE: 10/28/19 [facility] Center - Lab PAGE 4 RUN TIME: 1402 Specimen Inquiry RUN USER: INTERFACE SPEC #: [id number] PATIENT: DONNA SOMMERS #[id number] (Continued) PERFORMING SITE Diagnosis performed at: [facility] [address] [facility] [place] [address] Signed SIGNATURE ON FILE Bridget Montgomery MD 10/24/19 1328 ---- -------- END OF REPORT [id number] 13:28:00 RUN DATE: 11/01/19 [facility] PAGE 1 RUN TIME: 1540 Specimen Inqui ry RUN USER: INTERFACE PATIENT: DONNA SOMMERS ACCT #: [id number] LOC: KATALINA #: [id number] AGE/SX: 69/F ROOM: RE10/22/19REG DR: Gracy Martinez MD : 48 BED: DIS: STATUS: PRE REF TLOC: SPEC #: [id number] RECD: 10/22/19-1448 STATUS: SOUT REQ #: [id number] SHARRI: 10/22/19- SUBM DR: Gracy Martinez MD ENTERED: 10/22/19-0378 SP TYPE: BREAST OTHR DR: TUMOR REGISTRY ORDERED: GROSS COPIES TO: Gracy Martinez MD [address] [place] [id number] TUMOR REGISTRY MARKERS: I NTRADEPARTMENTAL CONSULT, MALIGNANCY PROCEDURES: GROSS (10/24/19-1313) TISSUES: 1. LEFT BREAST, NOS - CBX W/CALCIFICATIONS 2. LEFT BREAST, NOS - CBX 10 O'CLOCK ADDENDUM FINDINGS Addendum #2 Entered: -1438 ADDENDUM CORRECTION The second specimen is actually the left b reast ultrasound guided biopsy 10 o'clock, 5 cm fn (not left breast stereotact ic core biopsy without calcifications 10 o'clock, 5 cm fn. The diagnosis basil ins unchanged. Addendum Signed SIGNATURE ON FILE Bridget Montgomery MD 11/01/19 1540 Addendum #1 Entered: 10/28/19- 9 An Immunohistochemistry report is received from [facility] and the interpretation is as follows: Interpretation Interpretation ESTROGEN RECEPTOR: NEGATIVE (<1% UNFAVORABLE) CONTINUED ON NEXT PAGE ---- --------RUN DATE: 11/01/19 [facility] PAGE 2 RUN TIME: 1540 Specimen Inquiry RUN USER: INTERFACE SPEC #: [id number] PATIENT: DONNA SOMMERS #[id number] (Continued) ADDENDUM FINDINGS (Continued) PROGESTERONE RECEPTOR: NEGATIVE [...] to 72 hours. Optiview DAB ER-SP 1 [place]-clone 16 This test was developed and its performance characteristics determined by [facility]. It has not been cleared or approved [...] Signature Alvarado Frazier MD CP T Code(s): 72360(x2) The Technical and Professional components were performe d at [facility], [address] [place] [address] , [address] [address]. Addendum Signed SIGNATURE ON FILE Bridget Montgomery MD 01/06 1401 CLINICAL HISTORY COLLECTION DATE: 10/22/19 LEFT BREAST CALCIFICATIONS, ESTIMATED TIME IN FORMALIN: 31 HOURS CONTINUED ON NEXT PAGE RUN DATE: 11/01/19 [facility] PAGE 3 RUN DORCAS E: 1540 Specimen Inquiry RUN USER: INTERFACE -SPEC #: [id number] PATIENT: DONNA SOMMERS #[id number] (Continued) COMMENT The areas of high grade [...] DUCTAL EPITHELIAL HYPERPLASIA (SEE COMMENT) DMW/sm D 17214G8 MACROSCOPIC Specimen (1) is receive d in [...] x 1.3 x 0.2 cm in aggregate. Giles ink is applied and the tissue is submitted as (2 ). GROSS PERFORMED AT [facility] [address] [place] [address] [phone])[phone] CONTINUED ON NEXT PAGE RUN SABRINA E: 11/01/19 [facility] PAGE 4 RUN TIME: 1540 Specimen Inquiry RUN USER: INTERFACE SPEC #: [id number] PATIENT: DONNA SOMMERS # [id number] (Continued) MICROSCOPIC All of the stain s, including any controls performed, stain appropriately. MICROSCOPIC PE RFORMED AT [facility] [address] [place] [address] [phone])[phone] PERFORMING SITE Diagno sis performed at: [facility] [address] [facility], [place] [address] Signed SIGNATURE ON FILE Bridget Montgomery MD 10/24/19 1328 END OF REPORT - XR CHEST 1 [id number] 13:45:00 Name: DONNA SOMMERS [facility] : 1950 Age/S:69 /F [address] [facility] Unit#:[id number] Loc: [place] [address] Phys: Graciela Nickerson MD Dis Date: PHONE #: [phone] Status: REG ER FAX #: [phone] Exam Date: 04/13/2019 Re ason: sob' EXAMS: CPT CODE: [id number] XR CHEST 1 V 40976 EXAM: Chest x-ray, one view; INFORMATION: Shortness of breath; FINDINGS: There is significant enlargement of the heart. Increased basilar densities consiste nt with atelectatic changes in probable mild basilar edema. No obvio us effusions. IMPRESSION: 1. Cardiomegaly. 2. Pr obable mild left heart failure. 3. Basilar atelectatic changes. Location code: [facility] at 1345 Reported and signed by: Bentley Caballero M.D. CC: Dr. Gracy Martinez; Federico Nickerson MD Technologi st: AURA YANCEY, RT(R),CT Trnscrpt Data: 2019 (2345) t.ANNIKA Orig Print D/T: S: 04/13/2019 (13 75) PAGE 1 Signed Report URINALYSIS [id number] 13:38:00* Test Item Value Reference Range Interpretation [...] per HPF NONE Urine Source? Clean CatchURINALYSIS [id number] 13:19:00* Test Item Value Reference Range Interpretation [...] per HPF NONE Urine Source? Clean CatchLACTIC [id number] 13:19:00* Test Item Value Reference Range Interpretation Comments LACTIC ACID (test code = LACT) 1.9 MMOL/L 0.4-1.9 N COMPREHENSIVE METABOLIC [id number] 13:12:00* Test Item Value Reference Range Interpretation [...] = ALKP) 87 U/L 38-126 N CPK-MB [id number] 13:12:00* Test Item Value Reference Range Interpretation Comments CREATINE KINASE (CK) (test code = CK) 40 U/L 26-192 N CKMB (test code = CKMBT) 1.7 ng/mL 0.0-5.0 N RELATIVE % INDEX (test code = REL%) 4.3 % [id number] 13:12:00* Test Item Value Reference Range Interpretation Comments TROPONIN-I (test code = TROPI) 0.05 ng/mL 0.00-0.056 N [id number] 13:05:00* Test Item Value Reference Range Interpretation Comments D-DIMER (test code = DDIMER) 218 ng/ml < 600 B-TYPE NATRIURETIC [id number] 13:01:00* Test Item Value Reference Range Interpretation Comments B-TYPE NATRIURETIC PEPTIDE (test code = BNP) 183 pg/mL 0-100 H COMPREHENSIVE METABOLIC [id number] 13:01:00* Test Item Value Reference Range Interpretation [...] (test code = ALKP) IUnit/L 45-117 CPK-MB [id number] 13:01:00* Test Item Value Reference Range Interpretation Comments CREATINE KINASE (CK) (test code = CK) IUnit/L 26-208 CKMB (test code = CKMBT) ng/mL 0-6.0 RELATIVE % INDEX (test code = REL%) % [id number]-[id number] 13:01:00* Test Item Value Reference Range Interpretation Comments TROPONIN-I (test code = TROPI) ng/mL 0-0.045 CBC W/AUTO [id number] 12:47:00* Test Item Value Reference Range Interpretation [...] = BA#) 0.07 K/mm3 0.0-0.2 N Platelet Gpdzkvil6525-56-35 07:01:00* Test Item Value Reference Range Interpretation Comments Platelet Estimate (test code = 52705-9) MODERATELY DECREASED [facility] CenterPlatelet Morphology Xbnukda1828-67-69 07:01:00* Test Item Value Reference Range Interpretation Comments Platelet Morphology Comment (test code = 72146-0) FEW LARGE NO EDTA PLT CLUMPS SEENMemorial Hermann Memorial City Medical CenterRed Cell Morphology Epdeuai9641-58-57 07:01:00* Test Item Value Reference Range Interpretation Comments Red Cell Morphology Comment (test code = 6742-1) NORMAL [facility]odium Hfsys0043-75-63 06:52:00* Test Item Value Reference Range Interpretation Comments Sodium Level (test code = 2951-2) 140 136-145 [facility] CenterPotassium Uzkgs7881-25-79 06:52:00* Test Item Value Reference Range Interpretation Comments Potassium Level (test code = 2823-3) 4.3 3.5-5.1 [facility] CenterChloride Csuih2833-90-44 06:52:00* Test Item Value Reference Range Interpretation Comments Chloride Level (test code = 2075-0) 106 98-107 [facility] CenterCarbon Dioxide Ykrnc5532-81-40 06:52:00* Test Item Value Reference Range Interpretation Comments Carbon Dioxide Level (test code = 2028-9) 28 22-29 [facility] CenterAnion Uee6070-92-12 06:52:00* Test Item Value Reference Range Interpretation Comments Anion Gap (test code = 29015-2) 10.3 8-16 [facility] CenterBlood Urea Bqerhifz0260-08-01 06:52:00* Test Item Value Reference Range Interpretation Comments Blood Urea Nitrogen (test code = 3094-0) 18 7-26 [facility] CenterCreatinine2019-09-27 06:52:00* Test Item Value Reference Range Interpretation Comments Creatinine (test code = 2160-0) 1.04 0.57-1.11 [facility] CenterBUN/Creatinine Akgkm2491-32-53 06:52:00* Test Item Value Reference Range Interpretation Comments BUN/Creatinine Ratio (test code = 3097-3) 17 6-25 [facility] CenterEstimat Glomerular Filtration Rate 2018-12-14 06:52:00* Test Item Value Reference Range Interpretation Comments Estimat Glomerular Filtration Rate (test code = 983125407) 53 >60 L Ranges were taken from the National Kidney Disease Education Program and the [facility] Kidney Foundation literature.Reference ranges:60 or greater: Vlpoeb48-97 ( for 3 consecutive months): Chronic kidney disease 15 or less: Kidney failureMemorial Hermann Memorial City Medical CenterGlucose Zwrun6338-94-26 06:52:00* Test Item Value Reference Range Interpretation Comments Glucose Level (test code = JEZ5653) 97 74-118 [facility] CenterCalcium Vphrv6168-58-19 06:52:00* Test Item Value Reference Range Interpretation Comments Calcium Level (test code = 03939-1) 9.3 8.4-10.2 [facility] CenterWhite Blood Ofnup1910-47-09 06:07:00* Test Item Value Reference Range Interpretation Comments White Blood Count (test code = 6690-2) 13.49 4.8-10.8 H [facility] CenterRed Blood Xwpxp4505-00-31 06:07:00* Test Item Value Reference Range Interpretation Comments Red Blood Count (test code = 789-8) 4.69 3.6-5.1 [facility] CenterHemoglobin2019-09-27 06:07:00* Test Item Value Reference Range Interpretation Comments Hemoglobin (test code = 25836-8) 13.2 12.0-16.0 [facility] CenterHematocrit2019-09-27 06:07:00* Test Item Value Reference Range Interpretation Comments Hematocrit (test code = 4544-3) 43.5 34.2-44.1 [facility] CenterMean Corpuscular Ealwwu9832-35-72 06:07:00* Test Item Value Reference Range Interpretation Comments Mean Corpuscular Volume (test code = 787-2) 92.8 81-99 [facility] CenterMean Corpuscular Sukzolirjn1331-80-84 06:07:00* Test Item Value Reference Range Interpretation Comments Mean Corpuscular Hemoglobin (test code = 785-6) 28.1 28-32 [facility] CenterMean Corpuscular Hemoglobin Concent 2018-12-14 06:07:00* Test Item Value Reference Range Interpretation Comments Mean Corpuscular Hemoglobin Concent (test code = 786-4) 30.3 31-35 L [facility] CenterRed Cell Distribution Zuaby2568-71-03 06:07:00* Test Item Value Reference Range Interpretation Comments Red Cell Distribution Width (test code = 93755-4) 15.8 11.7 -14.4 H [facility] CenterPlatelet Sclcw0277-43-74 06:07:00* Test Item Value Reference Range Interpretation Comments Platelet Count (test code = 777-3) 105 140-360 L [facility] CenterNeutrophils (%) (Auto)2018-12-14 06:07:00 * Test Item Value Reference Range Interpretation Comments Neutrophils (%) (Auto) (test code = 32882-4) 80.5 38.7-80.0 H [facility] CenterLymphocytes (%) (Auto)2018-12-14 06:07:00 * Test Item Value Reference Range Interpretation Comments Lymphocytes (%) (Auto) (test code = 736-9) 12.2 18.0-39.1 L [facility] CenterMonocytes (%) (Auto)2018-12-14 06:07:00* Test Item Value Reference Range Interpretation Comments Monocytes (%) (Auto) (test code = 5905-5) 6.3 4.4-11.3 [facility] CenterEosinophils (%) (Auto)2018-12-14 06:07:00 * Test Item Value Reference Range Interpretation Comments Eosinophils (%) (Auto) (test code = 713-8) 0.1 0.0-6.0 [facility] CenterBasophils (%) (Auto)2018-12-14 06:07:00* Test Item Value Reference Range Interpretation Comments Basophils (%) (Auto) (test code = 706-2) 0.4 0.0-1.0 [facility] CenterIM GRANULOCYTES %2018-12-14 06:07:00* Test Item Value Reference Range Interpretation Comments IM GRANULOCYTES % (test code = IM GRANULOCYTES %) 0.5 0.0- 1.0 [facility] CenterNeutrophils # (Auto)2018-12-14 06:07:00* Test Item Value Reference Range Interpretation Comments Neutrophils # (Auto) (test code = 751-8) 10.9 2.1-6.9 H [facility] CenterLymphocytes # (Auto)2018-12-14 06:07:00* Test Item Value Reference Range Interpretation Comments Lymphocytes # (Auto) (test code = 92484-5) 1.6 1.0-3.2 [facility] CenterMonocytes # (Auto)2018-12-14 06:07:00* Test Item Value Reference Range Interpretation Comments Monocytes # (Auto) (test code = 742-7) 0.9 0.2-0.8 H [facility] CenterEosinophils # (Auto)2018-12-14 06:07:00* Test Item Value Reference Range Interpretation Comments Eosinophils # (Auto) (test code = 711-2) 0.0 0.0-0.4 [facility] CenterBasophils # (Auto)2018-12-14 06:07:00* Test Item Value Reference Range Interpretation Comments Basophils # (Auto) (test code = 704-7) 0.1 0.0-0.1 [facility] CenterAbsolute Immature Granulocyte (auto 2018-12-14 06:07:00* Test Item Value Reference Range Interpretation Comments Absolute Immature Granulocyte (auto (renee t code = Absolute Immature Granulocyte (auto) 0.07 0-0.1 [facility] CenterTotal Smpcdyoja1414-49-01 06:26:00* Test Item Value Reference Range Interpretation Comments Total Bilirubin (test code = 1975-2) 0.6 0.2-1.2 [facility] CenterAspartate Amino Transf (AST/SGOT) 2018-12-13 06:26:00* Test Item Value Reference Range Interpretation Comments Aspartate Amino Transf (AST/SGOT) (test code = Aspartate Amino Transf (AST/SGOT)) 8 5-34 [facility] CenterAlanine Aminotransferase (ALT/SGPT) 2018-12-13 06:26:00* Test Item Value Reference Range Interpretation Comments Alanine Aminotransferase (ALT/SGPT) (test code = 1742-6) 16 0-55 [facility] CenterTotal Xplctch0283-78-38 06:26:00* Test Item Value Reference Range Interpretation Comments Total Protein (test code = 2885-2) 5.4 6.5-8.1 L [facility] CenterAlbumin2019-09-26 06:26:00* Test Item Value Reference Range Interpretation Comments Albumin (test code = 1751-7) 2.9 3.5-5.0 L [facility] CenterGlobulin2019-09-26 06:26:00* Test Item Value Reference Range Interpretation Comments Globulin (test code = 05919-6) 2.5 2.3-3.5 [facility] CenterAlbumin/Globulin Ycdpm1536-48-65 06:26:00 * Test Item Value Reference Range Interpretation Comments Albumin/Globulin Ratio (test code = 1759-0) 1.2 0.8-2.0 [facility] CenterAlkaline Gaqbscgolbp3618-48-26 06:26:00* Test Item Value Reference Range Interpretation Comments Alkaline Phosphatase (test code = 6768-6) 58 40-150 [facility] CenterCHEST 2 VWDUY6613-23-08 13:12:00 [place] [address] Patient Name: DONNA SOMMERS MR #: [id number] : 1950 Age/Sex: 68/F Req #: [id number] Adm Physician: Ordered by: TALON TSANG MD Report #: [id number] Location: OR Room/Bed: Procedure: 2804-9297 DX/ CHEST 2 VIEWS Exam Date: 12/10/18 [...] TO: TALON TSANG MD Activated Partial Thromboplast Achb9510-15-06 12:40:00* Test Item Value Reference Range Interpretation Comments Activated Partial Thromboplast Time (test code = 42444-2) 18.3 23.8-35.5 L [facility] CenterProthrombin Lufk6480-24-61 12:39:00* Test Item Value Reference Range Interpretation Comments Prothrombin Time (test code = 5902-2) 11.9 11.9-14.5 [facility] CenterProthromb Time International Ratio 2018-12-10 12:39:00* Test Item Value Reference Range Interpretation Comments Prothromb Time International Ratio (test code = 6301-6) 0.83 Oral Anticoagulant Therapy INR Values:1. Low Intensity Therapy 1.5 - 2.02 . Moderate Intensity Therapy 2.0 - 3.03. High Intensity Therapy(1) 2.5 - 3. 54. High Intensity Therapy(2) 3.0 - 4.05. Panic Value INR > 5.0 [facility] CenterArterial Blood yL2128-04-06 12:38:00* Test Item Value Reference Range Interpretation Comments Arterial Blood pH (test code = 2744-1) 7.42 7.31-7.41 H [facility] CenterArterial Blood Partial Pressure CO2 2018-12-10 12:38:00* Test Item Value Reference Range Interpretation Comments Arterial Blood Partial Pressure CO2 (test code = 2018-10) 43 41-51 [facility] CenterArterial Blood Partial Pressure O2 2018-12-10 12:38:00* Test Item Value Reference Range Interpretation Comments Arterial Blood Partial Pressure O2 (test code = 2018-10) 70 80-105 L [facility] CenterArterial Blood BJA93789-33-25 12:38:00* Test Item Value Reference Range Interpretation Comments Arterial Blood HCO3 (test code = 1960-4) 28 23-28 [facility] CenterArterial Blood Base Mvxvuq4814-40-90 12:38:00* Test Item Value Reference Range Interpretation Comments Arterial Blood Base Excess (test code = 1925-7) 3.0 -2-3 [facility] CenterArterial Blood Oxygen Saturation 2018-12-10 12:38:00* Test Item Value Reference Range Interpretation Comments Arterial Blood Oxygen Saturation (test code = 2708-6) 94.0 95-98 L [facility] CenterFiO22019-09-23 12:38:00* Test Item Value Reference Range Interpretation Comments FiO2 (test code = FiO2) 21 ROOM AIROUT PATIENTCHI [facility] TempleBREAST,BIOPSY 2017-10-24 12:51:00 RUN DATE: 10/24/17 [facility] PAGE 1 RUN TIME: 1251 Specimen Inqui ry RUN USER: INTERFACE PATIENT: DONNA SOMMERS ACCT #: [id number] LOC: N U #: [id number] AGE/SX: 67/F ROOM: RE10/23/17REG DR: Gracy Martinez MD : [birth year] BED: DIS: STATUS: [facility] TLOC: SPEC #: [id number] RECD: 10/23/17 STATUS: LULI RE #: [id number] SHARRI: 10/23/17 DR: Laisha Osborne MD [...] MICROCALCIFICATI ON NEGATIVE FOR MALIGNANCY SHRUTHI D 96828 MACROSCOPIC The specimen is received in formalin, [...] AT [facility] [address] [facility] [place] [address] CONTINUED ON NEXT PAGE RUN DATE: 10/24/17 [facility] PAGE 2 RUN TIME: 1251 Specimen Inquiry RUN USER: INTERFACE SPEC #: [id number] PATIENT: DONNA SOMMERS #[id number] (Continued)---- -------- MACROSCOPIC (Continued) (P)[phone] MICROSCOPIC MICROSCOPIC PERFORMED AT [facility] All of the stains, including any controls performed, stain appropriately. [facility] [address] [place] [address] (P)[phone] -- Signed SIGNATURE ON Laurence Thakkar 10/24/17 1251 END OF REPORT CHEST 2 VIEWS [place] [address] Patient Name: DONNA SOMMERS MR #: [id number] : 1950 Age/Sex: 66/F Req #: [id number] Adm Physician: GRACY MARTINEZ MD Ordered by: GRACY MARTINEZ MD Report #: [id number] Location: [facility] Room/Bed: [place] [address] Procedure: 1110- 0060 DX/CHEST 2 VIEWS Exam [...]
--- NOTE | 2019-11-26 01:46 | NUR ---
RECEIVED PATIENT FROM ED VIA WHEELCHAIR, PATIENT AMBULATED TO BED, STEADY GAIT NOTED, PATIENT'S PERSONAL CANE AT BEDSIDE. PATIENT A&OX3. LUNG SOUNDS CLEAR. BOWEL SOUNDS ACTIVE. SKIN INTACT. NO EDEMA NOTED. PEDAL PULSES PALPABLE. ABD PAIN REPORTED, 6/10, BUT COMING DOWN PER PATIENT. L WRIST 20G IV ASYMPTOMATIC, INTACT, AND PATENT. ORIENTED PATIENT TO ROOM AND HOSPITAL PROCEDURES. NO QUESTIONS AT THIS TIME. BED LOCKED IN LOWEST POSITION, SIDE RAILS UPX2, CALL LIGHT IN REACH.
[2019-11-26] MEDS ORDERED: LASIX20 MG PO (02:28)
[2019-11-26] MEDS ORDERED: SPIRONOLACTONE25 MG PO (02:28)
[2019-11-26] MEDS ORDERED: PROAIR HFA INH8.5 GM INH (02:28)
[2019-11-26] MEDS: SODIUM CHLORIDE 0.9% 1000ML 1,000 ML IV SCH ×2 (02:37→09:00)
--- NOTE | 2019-11-26 02:47 | NUR ---
SPOKE WITH PATIENT ABOUT PLAN FOR MRCP IN MORNING. PATIENT REPORTS BEING VERY CLAUSTROPHOBIC AND STATES SHE WILL NOT BE ABLE TO DO AN MRI WITHOUT BEING "KNOCKED OUT." PATIENT ALSO STATES ALL PAIN MEDICATIONS MAKE HER THROW UP, AND THERE ARE NONE THAT SHE CAN TAKE THAT SHE IS WILLING TO TAKE. STATES THE TYLENOL 3 SHE RECEIVED IN THE ED IS STARTING TO HELP RELIEVE THE PAIN MORE.
[2019-11-26] MEDS ORDERED: DIPHENHYDRAMINE25 MG PO (02:51)
[2019-11-26] MEDS ORDERED: NASAL SPRAY30 M1 (05:07)
--- NOTE | 2019-11-26 07:00 | NUR ---
bedside shift report received pt in stable condition, denies pain at this time, updated on poc voiced understanding, call light in reach will continue to monitor
[2019-11-26] MEDS ORDERED: LORAZEPAM INJ 2 MG/ML VIAL IV PRN ×2 (09:25→09:30)
[2019-11-26] MEDS ORDERED: ALBUTEROL SULFATE HFA 8GM INHALATION AEROSOL INH PRN (09:30)
[2019-11-26] MEDS ORDERED: ACETAMINOPHEN 325 MG TAB PO PRN (09:30)
[2019-11-26] MEDS ORDERED: ALBUTEROL SULF 0.083% NEB SOLN 3 ML NEB INH PRN (09:30)
[2019-11-26] MEDS ORDERED: ISOSORBIDE MONONITRATE 20 MG TAB PO PRN (09:30)
[2019-11-26] MEDS ORDERED: CYCLOBENZAPRINE HCL 10 MG TAB PO PRN (09:30)
[2019-11-26] MEDS ORDERED: HYDRALAZINE HCL 20 MG/ML VIAL IV PRN (09:30)
[2019-11-26] MEDS ORDERED: BUDESONIDE/FORMOTEROL 160/4.5MCG INHALER INH PRN (09:30)
[2019-11-26] MEDS ORDERED: NICOTINE 21 MG/EA PATCH TOP PRN (10:00)
[2019-11-26] MEDS ORDERED: NICOTINE 7 MG PATCH TOP PRN (10:30)
--- NOTE | 2019-11-26 10:59 | NUR ---
spoke with milady Pedraza re: pt concerns of MRCP pt states she has breathing difficulty laying flat and severe back pain and voices she will not be able to do MRCP. Pt educated re: prn ativan to be given prior to mrcp and it should relax her. pt still voices concerns re: mrcp. MRCP cancelled and us of abdomen ordered.
--- NOTE | 2019-11-26 11:35 | NUR ---
Dr. juanito nunez notified of consult
--- NOTE | 2019-11-26 12:54 | Consultation ---
DATE OF CONSULTATION: Pulmonary Consultation The patient of Dr. Anh Martinez and Dr. Santillan. HISTORY OF PRESENT ILLNESS: The patient well known to the Pulmonary Service, history of COPD, pleural effusion in the past, history of nephrectomy for cancer, right kidney [facility] in 2016, uses home oxygen, smokes one cigarette a day, history of ITP. She has had fever and chills, pleuritic pain in the right chest. Recent bronchitis, took antibiotics approximately two weeks ago. She has a history of arthritis, uses a cane due to pain in the leg. PHYSICAL EXAMINATION: GENERAL: She is a well-developed white female, in no acute distress. Moderately obese. Has a history of sleep apnea, but declined CPAP. HEAD: Normocephalic and atraumatic. EYES: Extraocular movements are intact. LUNGS: Diminished breath sounds. HEART: Regular rhythm. ABDOMEN: Obese. EXTREMITIES: Nonedematous. IMPRESSION: 1. Possible liver stone not seen on CT of the abdomen without contrast. 2. chronic obstructive pulmonary disease. Followup chest x-ray. 3. History of remote renal cell carcinoma. Liver functions are markedly elevated. White count normal. Platelets are now normal. 4. Chronic ITP is resolved. Bilirubin, however, is 5, AST 22, ALT 26, alkaline phosphatase 290. MRCP, as discussed. Thank you for this kind referral. MD DINESH Lee/THOMASL /[id number]
--- NOTE | 2019-11-26 13:02 | Diagnostic Imaging Report ---
EXAMINATION: CHEST 2 VIEWS INDICATION: Pleuritic chest pain, abdominal pain COMPARISON: Chest radiograph 12/10/2018 FINDINGS: LINES/TUBES:None LUNGS:The lungs are hyperinflated. Left midlung linear opacities appear unchanged from 12/10/2018 and most likely represent atelectasis. Bibasilar subsegmental atelectasis. No focal consolidation. PLEURA:No pleural effusion or pneumothorax. MEDIASTINUM:The cardiomediastinal silhouette appears mildly enlarged in size and shape. Atherosclerotic calcifications of the thoracic aorta. BONES/SOFT TISSUES:No acute osseous injury. ABDOMEN:No free air under the diaphragm. IMPRESSION: Unchanged bilateral atelectasis/scarring. No new focal consolidation or pulmonary edema. Unchanged mild cardiomegaly. Signed by: Sampson Cole MD on 11/26/2019 12:59 PM
--- NOTE | 2019-11-26 16:29 | Diagnostic Imaging Report ---
EXAM: Right upper quadrant abdominal ultrasound INDICATION: Right upper quadrant pain COMPARISON: CT abdomen and pelvis of 11/22/2019 TECHNIQUE: Transverse and longitudinal images of the right upper quadrant abdomen were obtained FINDINGS: Liver: Size: 13.7 cm in the right midclavicular line, normal Appearance: Normal echogenicity, smooth contour Mass: No focal masses Gallbladder: Status post cholecystectomy. Bile Ducts: Intrahepatic Ducts: No dilatation Extrahepatic Ducts: Common bile duct measures 5 mm Pancreas: Visualized portions of the pancreatic head, neck and proximal body are normal. Kidney: The right kidney is absent. Vessels: Aorta: Visualized portions are normal Inferior Vena Cava: Visualized portions are normal Main Portal Vein: 1.4 cm, normal size with hepatopetal flow. Free Fluid: No ascites or pleural effusion IMPRESSION: Status post cholecystectomy. No acute abnormalities in the right upper quadrant. Signed by: Sampson Cole MD on 11/26/2019 4:25 PM
[2019-11-26] MEDS: FAMOTIDINE 20 MG/2 ML VIAL IV SCH (17:00)
--- NOTE | 2019-11-26 17:05 | NUR ---
discontinuing PT services since patient is Mod I in functional mobility. Thank you. Addendum: 11/26/19 at 1706 by Nilson blair PT Amended: Links added.
[2019-11-26] MEDS: OXYMETAZOLINE HCL 0.05% NAS 1 SPRAY BTL SCH (17:17)
--- NOTE | 2019-11-26 22:17 | NUR ---
PATIENT STATES SHE IS LIGHTHEADED AND DIZZY, REPORTS IT IS FROM NOT EATING, REQUESTED THIS NURSE CALL MD HORTON TO SEE IF SHE CAN HAVE ANYTHING. SPOKE WITH MD Luzma HORTON, START CLEAR LIQUID DIET, HE WILL SEE PATIENT IN A FEW HOURS.
--- NOTE | 2019-11-26 23:28 | NUR ---
MD Segal HORTON IN TO SEE PATIENT. NEW ORDER FOR ANESTHESIA CONSULT FOR SEDATION DURING MRCP AND TO ASK [facility] FOR A TRIPE SCRAPER CONSULT TO PROTECT KIDNEY FROM CONTRAST. MRCP IS NEEDED, PATIENT STATES SHE CANNOT DO IT WHILE AWAKE D/T CLAUSTROPHOBIA AND INABILITY TO BREATHE WHILE LAYING FLAT.
[2019-11-26] MEDS: DIPHENHYDRAMINE HCL INJ 50 MG/ML VIAL IV PRN (23:44)
[2019-11-27] VITALS (8 sets, daily range): BP systolic 131–176; BP diastolic 69–94
[2019-11-27] MEDS: SODIUM CHLORIDE 0.9% 1000ML 1,000 ML IV SCH ×2 (04:27→16:54)
[2019-11-27 05:13] LABS: BASOPHILS # (AUTO) 0.1 (0.0-0.1); BASOPHILS % 1.5 % (0.0-1.0); EOSINOPHILS # (AUTO) 0.3 (0.0-0.4); EOSINOPHILS % 4.2 % (0.0-6.0); HEMATOCRIT 44.5 % (34.2-44.1); HEMOGLOBIN 13.9 g/dL (12.0-16.0); LYMPHOCYTES # (AUTO) 1.8 (1.0-3.2); LYMPHOCYTES % 26.3 % (18.0-39.1); MEAN CORPUSCULAR HEMOGLOBIN 29.4 pg (28-32); MEAN CORPUSCULAR HGB CONC 31.2 g/dL (31-35); MEAN CORPUSCULAR VOLUME 94.1 fL (81-99); MONOCYTES # (AUTO) 0.4 (0.2-0.8); MONOCYTES % 6.3 % (4.4-11.3); NEUTROPHILS # (AUTO) 4.1 (2.1-6.9); NEUTROPHILS % 61.1 % (38.7-80.0); PLATELET COUNT 180 x10e3/uL (140-360); RED BLOOD COUNT 4.73 x10e6/uL (3.6-5.1); RED CELL DISTRIBUTION WIDTH 14.4 % (11.7-14.4)
[2019-11-27 05:45] LABS: ALBUMIN 3.7 g/dL (3.5-5.0); ALBUMIN/GLOBULIN RATIO 1.4 (0.8-2.0); CALCIUM 8.8 mg/dL (8.4-10.2); CREATININE, SERUM 0.99 mg/dL (0.57-1.11)
[2019-11-27] MEDS ORDERED: LEVOTHYROXINE SODIUM 112 MCG TAB PO SCH (06:00)
[2019-11-27] MEDS ORDERED: LEVOTHYROXINE SODIUM 25 MCG TABLET PO SCH (06:00)
--- NOTE | 2019-11-27 06:26 | NUR ---
SPOKE WITH KERA CHAVARRIA, ORDER TO CONSULT MD MOON FOR NEPHROLOGY.
--- NOTE | 2019-11-27 07:00 | NUR ---
RECEIVED PATIENT RESTING IN BED NO S/S OF DISTRESS. BED LOW, WHEELS LOCKED, SIDE RAILS X2. CALL LIGHT IN REACH WILL CONTINUE TO MONITOR PATIENT.
[2019-11-27] MEDS: FAMOTIDINE 20 MG/2 ML VIAL IV SCH ×2 (08:26→16:28)
[2019-11-27] MEDS ORDERED: LEVOTHYROXINE SODIUM 125 MCG TAB PO SCH (09:00)
[2019-11-27] MEDS ORDERED: FUROSEMIDE 20 MG TAB PO SCH (09:00)
[2019-11-27] MEDS ORDERED: SPIRONOLACTONE 25 MG TAB PO SCH (09:00)
[2019-11-27] MEDS ORDERED: NON-FORMULARY MEDICATION (Hydralazine Hcl 50 MG) PO SCH (09:00)
[2019-11-27] MEDS: OXYMETAZOLINE HCL 0.05% NAS 1 SPRAY BTL SCH ×2 (09:41→17:04)
--- NOTE | 2019-11-27 10:04 | Consultation ---
DATE OF CONSULTATION: 11/27/2019 HISTORY OF PRESENT ILLNESS: This is a 69-year-old female, underlying history of COPD, prior incisional hernia repair, gallbladder surgery, admitted with nausea and vomiting, scheduled for an MRCP, has solitary kidney status post right nephrectomy for cancer, history of tobacco addiction, hypertension, and COPD. Renal consulted for clearance. The patient is lying supine, in no apparent distress. Her nausea is better. Denies shortness of breath. Denies fever and chills. Denies any trouble passing urine. CURRENT MEDICATIONS: She is currently on Aldactone, Lasix, levothyroxine, albuterol and Atrovent nebulizers, and cyclobenzaprine. Zofran p.r.n. Morphine p.r.n. ALLERGIES: ASPIRIN, OXYCODONE, AND PAPER TAPE. SOCIAL HISTORY: Smoker. Denies any alcohol use. FAMILY HISTORY: Significant for hypertension. PHYSICAL EXAMINATION: GENERAL: Awake, alert, and oriented x3, lying supine, in no apparent distress. VITAL SIGNS: Blood pressure 134/83, pulse is 72, afebrile, oxygen saturation 99%. HEAD AND NECK: Cornea clear. Oral mucosa moist. LUNGS: Occasional rhonchi, end-expiratory. No rales. HEART: S1 and S2 audible. ABDOMEN: Distended, soft, nontender, prior surgical incision scars noted. No deep palpation done. EXTREMITIES: Lower extremity; no edema. IMPRESSION AND PLAN: Underlying chronic obstructive pulmonary disease, prior incisional hernia repair, admitted with nausea and vomiting. Laboratory test shows white count 6.6, hemoglobin 13.9, bicarbonate 21, and anion gap 17 with a total bilirubin of 2.5. LFTs elevated. GI on the case. TSH elevated, deferred to primary care physician. Scheduled for MRCP. Plan to start Mucomyst, IV fluids in the form of normal saline. Hydrate the patient. Discussed contrast induced nephropathy to spectrum with the patient. I will discontinue Aldactone and furosemide for now. Monitor the patient's kidney function, urine output with you. MD NERIS Bethea/MODL /[id number]
[2019-11-27] MEDS: HYDRALAZINE HCL 25 MG TAB PO SCH (10:54)
[2019-11-27] MEDS: ACETYLCYSTEINE 200 MG/ML 4ML VIAL PO SCH ×2 (10:54→16:54)
[2019-11-27 11:38] LABS: CLARITY,URINE CLEAR (CLEAR); COLOR,URINE YELLOW (YELLOW)
[2019-11-27 11:39] LABS: BILIRUBIN,URINE NEGATIVE (NEGATIVE); KETONES,URINE NEGATIVE (NEGATIVE); LEUKOCYTE ESTERASE ,URINE NEGATIVE (NEGATIVE); NITRITE,URINE NEGATIVE (NEGATIVE); PROTEIN,URINE DIPSTICK NEGATIVE (NEGATIVE); URINE UROBILINOGEN 0.2 mg/dL (0.2 - 1)
[2019-11-27 11:52] LABS: BACTERIA,URINE RARE /HPF; EPITHELIAL CELLS,URINE RARE /LPF; RBC,URINE 0-5 /HPF (0-5); WBC,URINE (MAN) 0-5 /HPF (0-5); YEAST,URINE FEW
[2019-11-27] MEDS: FLUCONAZOLE 200 MG/100 ML 100 ML IV SCH (16:54)
[2019-11-27] MEDS: DIPHENHYDRAMINE HCL INJ 50 MG/ML VIAL IV PRN (23:15)
[2019-11-28] VITALS (7 sets, daily range): BP systolic 141–159; BP diastolic 76–86
[2019-11-28] MEDS: SODIUM CHLORIDE 0.9% 1000ML 1,000 ML IV SCH ×2 (01:10→16:47)
[2019-11-28 05:20] LABS: BASOPHILS # (AUTO) 0.1 (0.0-0.1); BASOPHILS % 1.3 % (0.0-1.0); EOSINOPHILS # (AUTO) 0.3 (0.0-0.4); EOSINOPHILS % 4.3 % (0.0-6.0); HEMATOCRIT 41.4 % (34.2-44.1); LYMPHOCYTES # (AUTO) 1.7 (1.0-3.2); LYMPHOCYTES % 27.3 % (18.0-39.1); MEAN CORPUSCULAR HGB CONC 31.4 g/dL (31-35); MEAN CORPUSCULAR VOLUME 95.6 fL (81-99); MONOCYTES # (AUTO) 0.4 (0.2-0.8); MONOCYTES % 6.7 % (4.4-11.3); NEUTROPHILS # (AUTO) 3.6 (2.1-6.9); NEUTROPHILS % 59.7 % (38.7-80.0); PLATELET COUNT 150 x10e3/uL (140-360); RED BLOOD COUNT 4.33 x10e6/uL (3.6-5.1); RED CELL DISTRIBUTION WIDTH 14.6 % (11.7-14.4)
[2019-11-28] MEDS: LEVOTHYROXINE SODIUM 75 MCG TAB PO SCH (05:51)
[2019-11-28 06:00] LABS: ALANINE AMINOTRANSFERASE 224 IU/L (0-55); ALBUMIN 3.3 g/dL (3.5-5.0); ALBUMIN/GLOBULIN RATIO 1.4 (0.8-2.0); ALKALINE PHOSPHATASE 202 IU/L (40-150); ANION GAP 16.1 mmol/L (8-16); BLOOD UREA NITROGEN 6 mg/dL (7-26); BUN/CREATININE RATIO 7 (6-25); CALCIUM 8.6 mg/dL (8.4-10.2); CARBON DIOXIDE 18 mmol/L (22-29); CHLORIDE 108 mmol/L (98-107); CREATININE, SERUM 0.85 mg/dL (0.57-1.11); EST GLOMERULAR FILTRATION RATE > 60 ML/MIN (60-); GLUCOSE 77 mg/dL (74-118); POTASSIUM 4.1 mmol/L (3.5-5.1); SODIUM 138 mmol/L (136-145)
--- NOTE | 2019-11-28 07:00 | NUR ---
RECEIVED PATIENT RESTING IN BED NO S/S OF DISTRESS. BED LOW, WHEELS LOCKED, SIDE RAILS X2. CALL LIGHT IN REACH WILL CONTINUE TO MONITOR PATIENT.
[2019-11-28] MEDS: ACETYLCYSTEINE 200 MG/ML 4ML VIAL PO SCH (07:59)
[2019-11-28] MEDS: OXYMETAZOLINE HCL 0.05% NAS 1 SPRAY BTL SCH ×2 (07:59→16:06)
[2019-11-28] MEDS: FAMOTIDINE 20 MG/2 ML VIAL IV SCH ×2 (07:59→16:06)
--- NOTE | 2019-11-28 08:14 | NUR ---
PATIENT OFF UNIT FOR MRCP. LEFT IN WHEELCHAIR STABLE CONDITION.
[2019-11-28] MEDS ORDERED: SODIUM CHLORIDE 0.9% 500ML 500 ML ONE (08:24)
--- NOTE | 2019-11-28 10:13 | NUR ---
PATIENT BACK FROM [facility] IN STABLE CONDITION NO S/S OF DISTRESS. CALL LIGHT IN REACH WILL CONTINUE TO MONITOR.
[2019-11-28] MEDS: HYDRALAZINE HCL 25 MG TAB PO SCH (10:52)
--- NOTE | 2019-11-28 13:30 | Diagnostic Imaging Report ---
MRCP (magnetic resonance cholangiopancreatography) HISTORY: Gallstone Comparison: None Technique: Multiplanar and multisequence MRI images of the abdomen were obtained without contrast. Three-dimensional reconstructed images of the biliary tree are also reviewed. FINDINGS: The heart is mildly enlarged. The common bile duct appears normal in caliber. No intrahepatic biliary dilation. No pancreatic ductal dilation. No intrinsic or extrinsic defect is identified within the biliary system. The patient is status post cholecystectomy. No mass is identified in the region of the ampulla or pancreatic head. Unremarkable appearance of the liver, pancreas, spleen, adrenal glands, and left kidney. The right kidney is absent. The visualized bowel loops appear normal in caliber. No free fluid or lymphadenopathy is seen within the abdomen. Impression: 1. No evidence of biliary obstruction. 2. Previous cholecystectomy. The right kidney is absent. Signed by: Charlie Browning MD on 11/28/2019 1:27 PM
[2019-11-28] MEDS ORDERED: PROPOFOL IV EMULSION 10 MG/ML 20 ML VIAL ONE (13:42)
[2019-11-28] MEDS ORDERED: LIDOCAINE HCL 2% LOCAL INJ 5 ML SDV VIAL INJ ONE (13:42)
[2019-11-28] MEDS: FLUCONAZOLE 200 MG/100 ML 100 ML IV SCH (16:15)
[2019-11-28] MEDS: SODIUM BICARBONATE 650 MG TAB PO SCH (16:47)
[2019-11-29] VITALS: BP 141/62
[2019-11-29 04:00] VITALS: BP 147/69
[2019-11-29] MEDS: LEVOTHYROXINE SODIUM 75 MCG TAB PO SCH (06:02)
[2019-11-29] MEDS: SODIUM CHLORIDE 0.9% 1000ML 1,000 ML IV SCH ×2 (06:02→07:36)
[2019-11-29 06:11] LABS: BASOPHILS # (AUTO) 0.1 (0.0-0.1); EOSINOPHILS # (AUTO) 0.3 (0.0-0.4); EOSINOPHILS % 4.3 % (0.0-6.0); HEMOGLOBIN 12.9 g/dL (12.0-16.0); LYMPHOCYTES # (AUTO) 1.4 (1.0-3.2); LYMPHOCYTES % 23.5 % (18.0-39.1); MEAN CORPUSCULAR HEMOGLOBIN 29.5 pg (28-32); MEAN CORPUSCULAR HGB CONC 31.5 g/dL (31-35); MEAN CORPUSCULAR VOLUME 93.8 fL (81-99); MONOCYTES # (AUTO) 0.4 (0.2-0.8); MONOCYTES % 7.3 % (4.4-11.3); NEUTROPHILS # (AUTO) 3.6 (2.1-6.9); NEUTROPHILS % 63.4 % (38.7-80.0); PLATELET COUNT 163 x10e3/uL (140-360); RED BLOOD COUNT 4.37 x10e6/uL (3.6-5.1); RED CELL DISTRIBUTION WIDTH 14.3 % (11.7-14.4)
[2019-11-29 06:38] LABS: ALANINE AMINOTRANSFERASE 173 IU/L (0-55); ALBUMIN 3.3 g/dL (3.5-5.0); ALBUMIN/GLOBULIN RATIO 1.4 (0.8-2.0); ALKALINE PHOSPHATASE 192 IU/L (40-150); ANION GAP 15.9 mmol/L (8-16); BLOOD UREA NITROGEN 5 mg/dL (7-26); BUN/CREATININE RATIO 6 (6-25); CALCIUM 8.5 mg/dL (8.4-10.2); CARBON DIOXIDE 21 mmol/L (22-29); CHLORIDE 107 mmol/L (98-107); CREATININE, SERUM 0.84 mg/dL (0.57-1.11); EST GLOMERULAR FILTRATION RATE > 60 ML/MIN (60-); GLUCOSE 82 mg/dL (74-118); POTASSIUM 3.9 mmol/L (3.5-5.1); SODIUM 140 mmol/L (136-145)
--- NOTE | 2019-11-29 07:00 | NUR ---
RECEIVED PATIENT RESTING IN BED NO S/S OF DISTRESS. BED LOW, WHEELS LOCKED, SIDE RAILS X2. CALL LIGHT IN REACH WILL CONTINUE TO MONITOR PATIENT.
[2019-11-29 08:00] VITALS: BP 163/73
[2019-11-29] MEDS: FAMOTIDINE 20 MG/2 ML VIAL IV SCH (08:07)
[2019-11-29] MEDS: OXYMETAZOLINE HCL 0.05% NAS 1 SPRAY BTL SCH (08:07)
--- NOTE | 2019-11-29 08:15 | NUR ---
OK TO DISCHARGE PER DR. OSCAR HORTON.
[2019-11-29] MEDS: SODIUM BICARBONATE 650 MG TAB PO SCH (08:48)
[2019-11-29] MEDS: HYDRALAZINE HCL 25 MG TAB PO SCH (08:48)
[2019-11-29 09:17] VITALS: BP 163/73
--- NOTE | 2019-11-29 10:15 | NUR ---
REMOVED PATIENTS IV. CATHETER TIP INTACT AND PRESSURE DRESSING APPLIED.
--- NOTE | 2019-11-29 10:19 | NUR ---
Pt unavailable at this time. Pharmacy at bedside. I will follow up as able. EDGAR SPENCER [employer] Spiritual Care Department O: [phone]
--- NOTE | 2019-11-29 10:41 | NUR ---
PATIENT DISCHARGED FROM FACILITY. PATIENT GATHERED ALL PERSONAL BELONGINGS, DISCHARGE INSTRUCTIONS AND FOLLOW UP INFORMATION. PATIENT LEFT UNIT VIA WHEELCHAIR IN STABLE CONDITION. NO S/S OF DISTRESS LEAVING FACILITY.
--- NOTE | 2019-11-30 08:20 | Discharge Summary ---
ADMISSION DIAGNOSES: Elevated LFTs, COPD, hypothyroidism, hypertension, JAYA with past medical history of renal cancer status post nephrectomy. DISCHARGE DIAGNOSES: Elevated LFTs, COPD, hypothyroidism, hypertension, JAYA with past medical history of renal cancer status post nephrectomy, rule out hepatitis A, B and C, rule out COVID. HISTORY: COPD, right kidney carcinoma, hypothyroidism, hypertension, breast cancer, bipolar, hepatitis treated, but unknown type. SURGICAL HISTORY: Right breast lumpectomy, right kidney surgery, nephrectomy, hysterectomy, cholecystectomy, abdominal incisional hernia repair. FAMILY HISTORY: The patient's uncle and aunt had diabetes. The patient's mom, great grandmother and great aunt had cancer. The patient's dad had a heart attack. SOCIAL HISTORY: Occasional alcohol use. HOSPITAL COURSE: A 69-year-old female admits to complains of sharp squeezing right upper quadrant abdominal pain that began months ago. The last week the pain worsened. She had associated nausea and vomiting. Symptoms worsen after eating. She denies fever and diarrhea. On admission, abdominal x-ray with chest x-ray showed mild cardiomegaly. Ultrasound of the abdomen showed status post cholecystectomy, no acute abnormalities in the right upper quadrant. Due to elevated LFTs the patient had an MRCP. She did require complete sedation with the MRCP. MRCP showed no evidence of biliary obstruction. Throughout hospitalization the MRCP had to be rescheduled multiple times due to the level of sedation the patient required. By the time MRCP was completed it appears that any stone that may have been there had moved. At time of discharge her LFTs trended down. Hepatitis A, B and C were negative. COVID test was negative. Urine culture negative. The patient has been cleared by GI and will discharge home on chronic medication. The patient will follow up with primary care in 1 to 2 weeks. She understands discharge instructions and agrees to plan. Dictated by Keila Cuello NP MD TASNEEM Velasquez/MODL /[id number]
== END 2019-11-29 10:41 | disposition home or self-care (01) | DRG 442 ==
LOC: ER 23:15 → ERHOLD 11-26 01:01 → MED/SURG 11-26 01:47
PROVIDERS: ADMIT Internal Medicine; ATTEND Internal Medicine
DX: R94.5 Abnormal results of liver function studies (principal); Z68.41 Body mass index [BMI] 40.0-44.9, adult; J44.9 Chronic obstructive pulmonary disease, unspecified; E03.9 Hypothyroidism, unspecified; Z66 Do not resuscitate; Z08 Encounter for follow-up examination after completed treatment for malignant neoplasm; F31.9 Bipolar disorder, unspecified; Z85.3 Personal history of malignant neoplasm of breast; Z11.59 Encounter for screening for other viral diseases; Z85.528 Personal history of other malignant neoplasm of kidney; E66.9 Obesity, unspecified
CPT/HCPCS: 36415; 71046; 74022; 74181; 76705; 80053; 81001; 82150; 82550; 82553; 82948; 83036; 83690; 84443; 84484; 85025; 87086; 93005; 99284; J0360; J1200; J1450; J2001; J2060; J2405; J7030; J7040; U0002

== ENCOUNTER 2020-07-24 18:01 | Emergency (ER) | payer MEDICARE, OTHER ==
[~2020-07-24] VITALS: Ht 167.6 cm; Wt 115.2 kg
[~2020-07-24 18:01] MED LIST changes: +DIPHENHYDRAMINE25 MG PO; +LASIX20 MG PO; +NASAL SPRAY30 M1; +PROAIR HFA INH8.5 GM INH; +SPIRONOLACTONE25 MG PO
[2020-07-24] MEDS ORDERED: ASPIRIN 81 MG CHEW TAB PO ONE (18:30)
[2020-07-24 18:35] LABS: BASOPHILS # (AUTO) 0.1 (0.0-0.1); BASOPHILS % 0.5 % (0.0-1.0); EOSINOPHILS # (AUTO) 0.1 (0.0-0.4); EOSINOPHILS % 0.4 % (0.0-6.0); HEMATOCRIT 42.2 % (34.2-44.1); HEMOGLOBIN 13.2 g/dL (12.0-16.0); LYMPHOCYTES # (AUTO) 0.7 (1.0-3.2); LYMPHOCYTES % 5.2 % (18.0-39.1); MEAN CORPUSCULAR HEMOGLOBIN 28.1 pg (28-32); MEAN CORPUSCULAR HGB CONC 31.3 g/dL (31-35); MEAN CORPUSCULAR VOLUME 89.8 fL (81-99); MONOCYTES # (AUTO) 0.4 (0.2-0.8); MONOCYTES % 3.2 % (4.4-11.3); NEUTROPHILS # (AUTO) 11.5 (2.1-6.9); NEUTROPHILS % 90.1 % (38.7-80.0); PLATELET COUNT 233 x10e3/uL (140-360); RED CELL DISTRIBUTION WIDTH 13.9 % (11.7-14.4)
[2020-07-24 18:55] LABS: ALBUMIN 3.2 g/dL (3.5-5.0); ALBUMIN/GLOBULIN RATIO 0.9 (0.8-2.0); ANION GAP 13.3 mmol/L (8-16); CALCIUM 9.1 mg/dL (8.4-10.2); CREATININE, SERUM 1.05 mg/dL (0.57-1.11); POTASSIUM 4.3 mmol/L (3.5-5.1)
[2020-07-24 19:04] LABS: CREATINE KINASE MB 0.7 ng/mL (0-5.0)
[2020-07-24] MEDS ORDERED: LORAZEPAM INJ 2 MG/ML VIAL IV ONE (19:45)
[2020-07-24 21:10] LABS: CLARITY,URINE SL CLOUDY (CLEAR); COLOR,URINE AMBER (YELLOW); KETONES,URINE TRACE (NEGATIVE); LEUKOCYTE ESTERASE ,URINE NEGATIVE (NEGATIVE); NITRITE,URINE NEGATIVE (NEGATIVE); PROTEIN,URINE DIPSTICK NEGATIVE (NEGATIVE); URINE UROBILINOGEN 4 mg/dL (0.2 - 1)
[2020-07-24 21:24] LABS: BACTERIA,URINE MODERATE /HPF; EPITHELIAL CELLS,URINE MODERATE /LPF; RBC,URINE 0-5 /HPF (0-5); YEAST,URINE FEW
[2020-07-24] MEDS ORDERED: CEPHALEXIN500 MG PO (21:37)
[2020-07-24] MEDS ORDERED: PYRIDIUM100 MG PO (21:37)
[2020-07-24 23:03] VITALS: BP 133/77
== END 2020-07-24 22:50 | disposition home or self-care (01) ==
LOC: ER 18:10
DX: R10.13 Epigastric pain (principal); R11.2 Nausea with vomiting, unspecified; N39.0 Urinary tract infection, site not specified; C50.919 Malignant neoplasm of unspecified site of unspecified female breast; I10 Essential (primary) hypertension; E03.9 Hypothyroidism, unspecified; J44.9 Chronic obstructive pulmonary disease, unspecified; F41.9 Anxiety disorder, unspecified; D64.9 Anemia, unspecified; Z85.528 Personal history of other malignant neoplasm of kidney; G47.30 Sleep apnea, unspecified
CPT/HCPCS: 36415; 71045; 74176; 80053; 81001; 82550; 82553; 83690; 83880; 84484; 85025; 93005; 99284; J2060

== ENCOUNTER 2021-12-29 20:17 | Inpatient (IN) | payer MEDICARE, OTHER ==
[~2021-12-29] VITALS: Ht 167.6 cm; Wt 115.2 kg
[~2021-12-29 20:17] MED LIST changes: +CEPHALEXIN500 MG PO; +PYRIDIUM100 MG PO
[2021-12-29 22:30] VITALS: BP 159/102
[2021-12-29] MEDS ORDERED: NASAL SPRAY30 M1 (23:03)
[2021-12-29] MEDS ORDERED: BUDESONIDE/FORMOTEROL FUMARATE 80/4.5MCG 6.9 GM INH AEROSOL IH PRN (23:45)
[2021-12-29] MEDS ORDERED: ALBUTEROL SULF 0.083% NEB SOLN 3 ML NEB INH PRN (23:45)
[2021-12-29] MEDS ORDERED: DIPHENHYDRAMINE HCL 25 MG CAP PO PRN (23:45)
[2021-12-29] MEDS ORDERED: ISOSORBIDE MONONITRATE 30 MG TAB CR PO PRN (23:45)
[2021-12-29] MEDS ORDERED: OXYMETAZOLINE HCL 0.05% NAS 1 SPRAY BTL PRN (23:45)
[2021-12-29] MEDS ORDERED: ALBUTEROL SULFATE HFA 8GM INHALATION AEROSOL INH PRN (23:45)
[2021-12-30 04:00] VITALS: BP 139/85
[2021-12-30 05:19] LABS: BASOPHILS # (AUTO) 0.1 (0.0-0.1); BASOPHILS % 0.7 % (0.0-1.0); EOSINOPHILS # (AUTO) 0.2 (0.0-0.4); EOSINOPHILS % 2.9 % (0.0-6.0); HEMATOCRIT 51.9 % (34.2-44.1); LYMPHOCYTES # (AUTO) 1.3 (1.0-3.2); LYMPHOCYTES % 17.9 % (18.0-39.1); MEAN CORPUSCULAR HEMOGLOBIN 27.4 pg (28-32); MEAN CORPUSCULAR HGB CONC 28.9 g/dL (31-35); MEAN CORPUSCULAR VOLUME 94.9 fL (81-99); MONOCYTES # (AUTO) 0.4 (0.2-0.8); MONOCYTES % 5.2 % (4.4-11.3); NEUTROPHILS # (AUTO) 5.3 (2.1-6.9); PLATELET COUNT 142 x10e3/uL (140-360); RED BLOOD COUNT 5.47 x10e6/uL (3.6-5.1); RED CELL DISTRIBUTION WIDTH 15.6 % (11.7-14.4)
[2021-12-30 05:59] LABS: CALCIUM 9.5 mg/dL (8.4-10.2); CREATININE, SERUM 1.04 mg/dL (0.57-1.11)
[2021-12-30] MEDS: LEVOTHYROXINE SODIUM 25 MCG TABLET PO SCH (06:03)
[2021-12-30] MEDS: FUROSEMIDE INJ 10 MG/ML 4 ML VIAL IV SCH ×2 (06:03→12:24)
[2021-12-30] MEDS: LEVOTHYROXINE SODIUM 112 MCG TAB PO SCH (06:03)
[2021-12-30 08:27] VITALS: BP 120/67
[2021-12-30] MEDS: HYDRALAZINE HCL 25 MG TAB PO SCH (09:00)
[2021-12-30] MEDS ORDERED: CEPHALEXIN 500 MG CAP PO SCH ×2 (09:00)
[2021-12-30] MEDS ORDERED: ONDANSETRON HCL INJ 2MG/ML 2ML 2 MG/ML VIAL IV PRN (09:30)
[2021-12-30] MEDS ORDERED: ACETAMINOPHEN 325 MG TAB PO PRN (09:30)
[2021-12-30] MEDS ORDERED: SODIUM CHLORIDE 0.9% 250ML 250 ML ONE (10:41)
[2021-12-30 11:51] VITALS: BP 136/80
[2021-12-30 15:09] VITALS: BP 136/80
[2021-12-30 15:37] VITALS: BP 109/60
[2021-12-30] MEDS: ENOXAPARIN SOD INJ 40 MG/0.4 ML SYR SC SCH (17:00)
[2021-12-30] MEDS: CYCLOBENZAPRINE HCL 10 MG TAB PO PRN (20:06)
[2021-12-30 22:51] VITALS: BP 109/60
[2021-12-31] VITALS (7 sets, daily range): BP systolic 112–133; BP diastolic 62–91
[2021-12-31 05:19] LABS: ANION GAP 14.2 mmol/L (8-16); CALCIUM 8.4 mg/dL (8.4-10.2); CREATININE, SERUM 0.95 mg/dL (0.57-1.11); POTASSIUM 3.2 mmol/L (3.5-5.1)
[2021-12-31] MEDS: LEVOTHYROXINE SODIUM 112 MCG TAB PO SCH (05:43)
[2021-12-31] MEDS: LEVOTHYROXINE SODIUM 25 MCG TABLET PO SCH (05:43)
[2021-12-31] MEDS: FUROSEMIDE INJ 10 MG/ML 4 ML VIAL IV SCH ×2 (05:43→12:47)
[2021-12-31] MEDS: HYDRALAZINE HCL 25 MG TAB PO SCH (09:32)
[2021-12-31] MEDS: CEFTRIAXONE 2 GM in SODIUM CHLORIDE 0.9% 100 ML IV SCH (14:13)
[2021-12-31] MEDS: ENOXAPARIN SOD INJ 40 MG/0.4 ML SYR SC SCH (17:30)
[2022-01-01] VITALS (7 sets, daily range): BP systolic 103–128; BP diastolic 56–79
[2022-01-01] MEDS: LEVOTHYROXINE SODIUM 112 MCG TAB PO SCH (05:18)
[2022-01-01] MEDS: CYCLOBENZAPRINE HCL 10 MG TAB PO PRN (05:18)
[2022-01-01] MEDS: FUROSEMIDE INJ 10 MG/ML 4 ML VIAL IV SCH ×2 (05:19→12:05)
[2022-01-01] MEDS: LEVOTHYROXINE SODIUM 25 MCG TABLET PO SCH (05:19)
[2022-01-01 05:49] LABS: BASOPHILS # (AUTO) 0.1 (0.0-0.1); BASOPHILS % 0.9 % (0.0-1.0); EOSINOPHILS # (AUTO) 0.2 (0.0-0.4); EOSINOPHILS % 3.1 % (0.0-6.0); HEMATOCRIT 50.1 % (34.2-44.1); HEMOGLOBIN 14.5 g/dL (12.0-16.0); LYMPHOCYTES # (AUTO) 1.1 (1.0-3.2); LYMPHOCYTES % 16.9 % (18.0-39.1); MEAN CORPUSCULAR HEMOGLOBIN 27.4 pg (28-32); MEAN CORPUSCULAR HGB CONC 28.9 g/dL (31-35); MEAN CORPUSCULAR VOLUME 94.5 fL (81-99); MONOCYTES # (AUTO) 0.4 (0.2-0.8); NEUTROPHILS # (AUTO) 4.7 (2.1-6.9); NEUTROPHILS % 72.8 % (38.7-80.0); PLATELET COUNT 144 x10e3/uL (140-360); RED CELL DISTRIBUTION WIDTH 15.5 % (11.7-14.4)
[2022-01-01 06:11] LABS: ANION GAP 13.6 mmol/L (8-16); CALCIUM 8.9 mg/dL (8.4-10.2); CREATININE, SERUM 0.86 mg/dL (0.57-1.11); POTASSIUM 3.6 mmol/L (3.5-5.1)
[2022-01-01] MEDS: HYDRALAZINE HCL 25 MG TAB PO SCH (08:40)
[2022-01-01] MEDS ORDERED: POTASSIUM CHLORIDE 10MEQ EA PO NR (10:15)
[2022-01-01] MEDS: Vancomycin IV 1 GM in SODIUM CHLORIDE 0.9% 250ML 250 ML IV SCH ×2 (10:29→21:17)
[2022-01-01] MEDS: CEFTRIAXONE 2 GM in SODIUM CHLORIDE 0.9% 100 ML IV SCH (15:15)
[2022-01-01] MEDS: ENOXAPARIN SOD INJ 40 MG/0.4 ML SYR SC SCH (16:54)
[2022-01-01] MEDS ORDERED: DIPHENHYDRAMINE HCL 25 MG CAP PO PRN (19:15)
[2022-01-02] VITALS (7 sets, daily range): BP systolic 112–134; BP diastolic 50–74
[2022-01-02] MEDS: FUROSEMIDE INJ 10 MG/ML 4 ML VIAL IV SCH ×2 (06:49→11:03)
[2022-01-02] MEDS: LEVOTHYROXINE SODIUM 25 MCG TABLET PO SCH (06:50)
[2022-01-02] MEDS: LEVOTHYROXINE SODIUM 112 MCG TAB PO SCH (06:50)
[2022-01-02] MEDS: HYDRALAZINE HCL 25 MG TAB PO SCH (08:14)
[2022-01-02] MEDS: POTASSIUM CHLORIDE 10MEQ EA PO SCH (08:15)
[2022-01-02] MEDS: Vancomycin IV 1 GM in SODIUM CHLORIDE 0.9% 250ML 250 ML IV SCH ×2 (09:15→23:20)
[2022-01-02] MEDS: SPIRONOLACTONE 25 MG TAB PO SCH ×2 (11:02→12:42)
[2022-01-02] MEDS: CEFTRIAXONE 2 GM in SODIUM CHLORIDE 0.9% 100 ML IV SCH (13:04)
[2022-01-02] MEDS: ENOXAPARIN SOD INJ 40 MG/0.4 ML SYR SC SCH (16:38)
[2022-01-03] VITALS (8 sets, daily range): BP systolic 116–140; BP diastolic 58–78
[2022-01-03] MEDS: LEVOTHYROXINE SODIUM 25 MCG TABLET PO SCH (05:58)
[2022-01-03] MEDS: LEVOTHYROXINE SODIUM 112 MCG TAB PO SCH (05:58)
[2022-01-03] MEDS: FUROSEMIDE INJ 10 MG/ML 4 ML VIAL IV SCH ×2 (05:58→12:00)
[2022-01-03] MEDS ORDERED: ONDANSETRON HCL 4 MG ORAL DISINTEGRATING TAB PO PRN (07:30)
[2022-01-03] MEDS: POTASSIUM CHLORIDE 10MEQ EA PO SCH (09:00)
[2022-01-03] MEDS: HYDRALAZINE HCL 25 MG TAB PO SCH (09:00)
[2022-01-03] MEDS: SPIRONOLACTONE 25 MG TAB PO SCH ×2 (09:00→12:00)
[2022-01-03] MEDS ORDERED: Vancomycin IV 1 GM in SODIUM CHLORIDE 0.9% 250ML 250 ML IV SCH (11:00)
[2022-01-03] MEDS: CEFTRIAXONE 2 GM in SODIUM CHLORIDE 0.9% 100 ML IV SCH (16:16)
[2022-01-03] MEDS: ENOXAPARIN SOD INJ 40 MG/0.4 ML SYR SC SCH (17:00)
[2022-01-03] MEDS: Vancomycin IV 1 GM in SODIUM CHLORIDE 0.9% 250ML 250 ML IV SCH (20:52)
[2022-01-04] VITALS (8 sets, daily range): BP systolic 117–139; BP diastolic 69–80
[2022-01-04] MEDS: LEVOTHYROXINE SODIUM 112 MCG TAB PO SCH (05:33)
[2022-01-04] MEDS: FUROSEMIDE INJ 10 MG/ML 4 ML VIAL IV SCH ×2 (05:33→12:34)
[2022-01-04] MEDS: LEVOTHYROXINE SODIUM 25 MCG TABLET PO SCH (05:34)
[2022-01-04 06:04] LABS: BASOPHILS # (AUTO) 0.1 (0.0-0.1); BASOPHILS % 0.9 % (0.0-1.0); EOSINOPHILS # (AUTO) 0.2 (0.0-0.4); HEMATOCRIT 46.6 % (34.2-44.1); HEMOGLOBIN 14.1 g/dL (12.0-16.0); LYMPHOCYTES # (AUTO) 1.1 (1.0-3.2); LYMPHOCYTES % 14.2 % (18.0-39.1); MEAN CORPUSCULAR HEMOGLOBIN 27.4 pg (28-32); MEAN CORPUSCULAR HGB CONC 30.3 g/dL (31-35); MEAN CORPUSCULAR VOLUME 90.5 fL (81-99); MONOCYTES # (AUTO) 0.5 (0.2-0.8); NEUTROPHILS # (AUTO) 5.7 (2.1-6.9); NEUTROPHILS % 74.6 % (38.7-80.0); PLATELET COUNT 139 x10e3/uL (140-360); RED BLOOD COUNT 5.15 x10e6/uL (3.6-5.1); RED CELL DISTRIBUTION WIDTH 15.4 % (11.7-14.4)
[2022-01-04 06:41] LABS: ANION GAP 13.2 mmol/L (8-16); CALCIUM 9.2 mg/dL (8.4-10.2); CREATININE, SERUM 0.77 mg/dL (0.57-1.11); POTASSIUM 3.2 mmol/L (3.5-5.1)
[2022-01-04] MEDS ORDERED: POTASSIUM CHLORIDE 10MEQ EA PO ONE (09:30)
[2022-01-04] MEDS: POTASSIUM CHLORIDE 10MEQ EA PO SCH (10:18)
[2022-01-04] MEDS: HYDRALAZINE HCL 25 MG TAB PO SCH (10:18)
[2022-01-04] MEDS: SPIRONOLACTONE 25 MG TAB PO SCH ×2 (10:18→12:33)
[2022-01-04] MEDS: CEFTRIAXONE 2 GM in SODIUM CHLORIDE 0.9% 100 ML IV SCH (12:34)
[2022-01-04] MEDS ORDERED: SODIUM CHLORIDE 0.9% 250ML 250 ML ONE (13:01)
[2022-01-04] MEDS: ENOXAPARIN SOD INJ 40 MG/0.4 ML SYR SC SCH (18:26)
[2022-01-04] MEDS: Vancomycin IV 1 GM in SODIUM CHLORIDE 0.9% 250ML 250 ML IV SCH (21:56)
[2022-01-05] VITALS (7 sets, daily range): BP systolic 113–128; BP diastolic 69–80
[2022-01-05] MEDS: FUROSEMIDE INJ 10 MG/ML 4 ML VIAL IV SCH (05:59)
[2022-01-05] MEDS: LEVOTHYROXINE SODIUM 112 MCG TAB PO SCH (05:59)
[2022-01-05] MEDS: LEVOTHYROXINE SODIUM 25 MCG TABLET PO SCH (05:59)
[2022-01-05] MEDS: SPIRONOLACTONE 25 MG TAB PO SCH (09:05)
[2022-01-05] MEDS: HYDRALAZINE HCL 25 MG TAB PO SCH (09:06)
[2022-01-05] MEDS: POTASSIUM CHLORIDE 10MEQ EA PO SCH (09:10)
[2022-01-05] MEDS: CEFTRIAXONE 2 GM in SODIUM CHLORIDE 0.9% 100 ML IV SCH (11:54)
== END 2022-01-05 13:04 | disposition home health service (06) | DRG 291 ==
LOC: MED/SURG 21:41
PROVIDERS: ADMIT Internal Medicine; ATTEND Internal Medicine
PROC: 02HV33Z Insertion of Infusion Device into Superior Vena Cava, Percutaneous Approach (ICD-10-PCS; principal; 2022-01-03)
DX: I11.0 Hypertensive heart disease with heart failure (principal); I50.33 Acute on chronic diastolic (congestive) heart failure; J44.1 Chronic obstructive pulmonary disease with (acute) exacerbation; L03.115 Cellulitis of right lower limb; Z68.41 Body mass index [BMI] 40.0-44.9, adult; Z99.81 Dependence on supplemental oxygen; E03.9 Hypothyroidism, unspecified; F17.210 Nicotine dependence, cigarettes, uncomplicated; Z90.5 Acquired absence of kidney; Z85.3 Personal history of malignant neoplasm of breast; Z85.528 Personal history of other malignant neoplasm of kidney; Z90.10 Acquired absence of unspecified breast and nipple; Z90.49 Acquired absence of other specified parts of digestive tract; Z88.5 Allergy status to narcotic agent; Z88.8 Allergy status to other drugs, medicaments and biological substances; Z91.048 Other nonmedicinal substance allergy status; Z82.49 Family history of ischemic heart disease and other diseases of the circulatory system; R06.89 Other abnormalities of breathing; I44.0 Atrioventricular block, first degree; E66.01 Morbid (severe) obesity due to excess calories; I87.8 Other specified disorders of veins; I89.0 Lymphedema, not elsewhere classified; E87.6 Hypokalemia; G47.33 Obstructive sleep apnea (adult) (pediatric)
CPT/HCPCS: 36415; 36569; 71045; 80048; 80202; 85025; 93005; 93306; 93970; 94640; 94799; 99251; J0690; J0696; J1650; J1940; J3370; J7050